=== PATIENT | male | born 1960 | race Caucasian/White ===

== ENCOUNTER 2018-04-27 08:27 | Outpatient (RCR) | payer MEDICARE, SELFPAY ==
[2018-04-27 09:35] VITALS: BP 179/98; PULSE 62; RESP 16; TEMP 36.9; BMI 54.2
--- NOTE | 2018-04-27 11:24 | PCM.WC.PN ---
(1) Lumbar spine tumor Status: Acute Current Visit: Yes Code(s): D49.2 - Neoplasm of unspecified behavior of bone, soft tissue, and skin (2) Neuropathy of right lower extremity Status: Acute Current Visit: Yes Code(s): G57.91 - Unspecified mononeuropathy of right lower limb (3) Nonhealing ulcer of right lower extremity Status: Acute Current Visit: Yes Code(s): L97.919 - Non-pressure chronic ulcer of unspecified part of right lower leg with unspecified severity (4) Obesity (BMI 30-39.9) Status: Acute Current Visit: Yes Code(s): E66.9 - Obesity, unspecified (5) Bilateral lower extremity edema Status: Acute Current Visit: Yes Code(s): R60.0 - Localized edema Type of Wound Date of Service: 04/27/18 Chief Complaint: Right lateral lower leg ulcer and healing History of Wound: 57-year-old white male who walks with a walker and is 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 Came here because he kicked the door with his right leg in January and still not healing. The areas about the size of a quarter. He has been using Silvadene and has been on several antibiotics with his for physician. Patient was referred to us for further care Progress of Wound: Today the ulcer is open debrided. No sign of infection has some redness around the area we did cultures the area he finishes last antibiotic last Monday and we will change his dressing to Aquacel silver moistened with gauze and tape and he needs to have an Sid wrap he has lower extremity edema. - Physical Exam Vital Signs Temp Pulse Resp BP 98.4 F 62 16 179/98 H 04/27/18 09:35 04/27/18 09:35 04/27/18 09:35 04/27/18 09:35 General: Oriented x3, Cooperative, Well developed HEENT: Atraumatic, PERRLA Oral: Moist Mucosa Neck: Supple, No JVD Lungs: Clear to auscultation, Normal air movement Cardiovascular: Regular rate, Regular Rhythm Abdomen: Bowel Sounds Present, Soft, Non Tender, No Hepato-splenomegaly Extremities: No clubbing, No edema Skin: Ulcer/ Wound - Right lateral lower leg Wound Measurements and Assessment WC - Nurse 1 - General Ulcer Measurement Start: 04/27/18 09:35 Freq: Status: Active Protocol: Activity Type Activity Date Activity User E-Sign Co-Sign Detail Recorded Client Recorded Date Recorded By Document 04/27/18 09:35 [facility] [id number] 04/27/18 10:06 [facility] 04/27/18 09:35 Wound Center Nurse 1 [Ulcer Assessment] #1- RT LAT LE -Combined with other wound No -Current Size (cm) - Length 1.1 -Current Size (cm) - Width 1.4 -Current Size (cm) - Depth 0.1 -Total Square Cm 1.54 -Date of Last Picture (Recall this 04/27/18 field) -Photo Taken Yes -Epithelialization None Present -Tunneling No -Undermining/Tunneling No -Circular Undermining No -Exudate Amt None Present (0 %) -Wound Margin Distinct, Outline Attached -Granulation Amt Large (67-100%) -Granulation Quality Red -Slough/Fibrin No -Necrosis Amt None Present (0 %) -Texture (Deisi-wound Skin Appearance) Scarring -Moisture (Deisi-wound Skin Appearance Assessed ) -Color (Deisi-wound Skin Appearance) Assessed -Temperature (Deisi-wound Skin No Abnormality Appearance) (Pt Warm) -Tenderness on Palpation (Deisi-wound No Skin Appearance) -Ulcer Cleansing Rinsed/ Irrigated with Saline -Foul Odor after Cleansing No -Anesthetic Used 5% Lidocaine Gel [Edema Assessment] -Lower Limb Edema Present Yes -Right Calf (cm) 54.4 -Right Ankle (cm) 32.5 -Left Calf (cm) 51.5 -Left Ankle (cm) 31.5 - Nurse 2 - General Ulcer CM Notes Start: 04/27/18 09:35 Freq: Status: Active Protocol: Activity Type Activity Date Activity User E-Sign Co-Sign Detail Recorded Client Recorded Date Recorded By Document 04/27/18 10:34 [id number] 04/27/18 10:35 04/27/18 10:34 Wound Center Nurse 2 [Procedure/Treatment] #1- RT LAT LE -Time 10:34 -Correct Patient Yes -Correct Side, Site, Position Yes -Correct Procedure Yes -Procedure Performed Yes -Type of Procedure Debridement -Clinical Debridement Subcutaneous -Post Debridement Size (cm) - Length 1.4 -Post Debridement Size (cm) - Width 1.5 -Post Debridement Size (cm) - Depth 0.2 -Total Square Cm 2.10 -Wound/Ulcer Outcome Not Healed -Ulcer Cleansing Rinsed/ Irrigated with Saline -Foul Odor after Cleansing No -Bioengineered Tissue No -Bleeding Controlled with Pressure -Treatment Response Procedure Tolerated Well [See Physician Procedure note for Specifics] Pain Scale: 0-10 Numeric [Pain] -Is Patient Pain Free? Yes Musculoskeletal: No Tenderness to Palpation of Joints or Extremities Lymphatic: No Cervical, Supraclavicular, or Inguinal Adenopathy Neurological: Cranial nerves II-XII grossly intact, Neuro grossly intact Psych/Mental Status: Normal Affect, Appropriate Debridement Note Post-Debridement Measurements/Treatment WC - Nurse 2 - General Ulcer CM Notes Start: 04/27/18 09:35 Freq: Status: Active Protocol: Activity Type Activity Date Activity User E-Sign Co-Sign Detail Recorded Client Recorded Date Recorded By Document 04/27/18 10:34 [id number] 04/27/18 10:35 04/27/18 10:34 Wound Center Nurse 2 #1- RT LAT LE -Time 10:34 -Correct Patient Yes -Correct Side, Site, Position Yes -Correct Procedure Yes -Procedure Performed Yes -Type of Procedure Debridement -Clinical Debridement Subcutaneous -Post Debridement Size (cm) - Length 1.4 -Post Debridement Size (cm) - Width 1.5 -Post Debridement Size (cm) - Depth 0.2 -Total Square Cm 2.10 -Wound/Ulcer Outcome Not Healed -Ulcer Cleansing Rinsed/ Irrigated with Saline -Foul Odor after Cleansing No -Bioengineered Tissue No -Bleeding Controlled with Pressure -Treatment Response Procedure Tolerated Well Pain Scale: 0-10 Numeric Is Patient Pain Free? Yes Wound debrided: Lateral lower leg Type of Debridement: Excisional debridement Anesthesia Used: 5% Lidocaine Gel Depth: Down to and including healthy tissue, in the subcutaneous layer Percentage of wound debrided: 100 Instrument Used: 5mm curette Tissue Removed: Fibrin Patient tolerated procedure well Assessment/Plan Pre-albumin and aerobic and anaerobic cultures obtained Active Problems Lumbar spine tumor (Acute) Neuropathy of right lower extremity (Acute) Nonhealing ulcer of right lower extremity (Acute) Obesity (BMI 30-39.9) (Acute) Bilateral lower extremity edema (Acute) Assessment: Right lateral lower leg ulcer nonhealing. Right lower leg edema. Peripheral neuropathy. Tumor on spine Plan: Area with Hibiclens. Apply Aquacel silver to wound base moistened cover with Adaptic gauze tape. Sid wraps to his lower extremity. Follow-up 2 weeks
== END 2018-05-11 23:59 ==
LOC: WC 08:27
PROVIDERS: Family Provider Family Medicine; PCP Family Medicine; Visit Provider Nurse Practitioner
DX: L97.812 Non-pressure chronic ulcer of other part of right lower leg with fat layer exposed (principal); E66.9 Obesity, unspecified; R60.0 Localized edema; G62.9 Polyneuropathy, unspecified
CPT/HCPCS: 11042; 36415; 84134; 87070; 87075; 87186; 87205; 99203; G0463

== ENCOUNTER 2018-06-08 09:00 | Outpatient (RCR) | payer MEDICARE, SELFPAY ==
[2018-05-12 01:47] VITALS: BP 179/98; PULSE 62; RESP 16; TEMP 36.9
[2018-05-18 10:23] VITALS: BP 169/96; PULSE 64; RESP 18; TEMP 36.3
--- NOTE | 2018-05-18 11:55 | PCM.WC.PN ---
(1) Bilateral lower extremity edema Status: Acute Current Visit: No Code(s): R60.0 - Localized edema (2) Obesity (BMI 30-39.9) Status: Acute Current Visit: No Code(s): E66.9 - Obesity, unspecified (3) Nonhealing ulcer of right lower extremity Status: Acute Current Visit: No Code(s): L97.919 - Non-pressure chronic ulcer of unspecified part of right lower leg with unspecified severity Type of Wound Date of Service: 05/18/18 Chief Complaint: Right lateral lower leg ulcer and healing History of Wound: 57-year-old white male who walks with a walker and is 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 Came here because he kicked the door with his right leg in January and still not healing. The areas about the size of a quarter. He has been using Silvadene and has been on several antibiotics with his for physician. Patient was referred to us for further care Progress of Wound: Today the ulcer is open debrided. No sign of infection has some redness around the area we did cultures the area he has finished last antibiotic . He is doing well using the Aquacel silver moistened with gauze and tape and he needs to have an Sid wrap he has lower extremity edema. - Physical Exam Vital Signs Temp Pulse Resp BP 97.3 F L 64 18 169/96 H 05/18/18 10:23 05/18/18 10:23 05/18/18 10:23 05/18/18 10:23 General: Oriented x3, Cooperative, Well developed HEENT: Atraumatic, PERRLA Oral: Moist Mucosa Neck: Supple, No JVD Lungs: Clear to auscultation, Normal air movement Cardiovascular: Regular rate, Regular Rhythm Abdomen: Bowel Sounds Present, Soft, Non Tender, No Hepato-splenomegaly Extremities: No clubbing, No edema Skin: Ulcer/ Wound - Lateral lower leg ulcer traumatic Wound Measurements and Assessment WC - Nurse 1 - General Ulcer Measurement Start: 05/18/18 10:23 Freq: Status: Active Protocol: Activity Type Activity Date Activity User E-Sign Co-Sign Detail Recorded Client Recorded Date Recorded By Document 05/18/18 10:23 [facility] [id number] 05/18/18 10:24 [facility] 05/18/18 10:23 Wound Center Nurse 1 [Ulcer Assessment] #1- RT LAT LE -Combined with other wound No -Current Size (cm) - Length 1.3 -Current Size (cm) - Width 1.4 -Current Size (cm) - Depth 0.1 -Total Square Cm 1.82 -Photo Taken No -Epithelialization None Present -Tunneling No -Undermining/Tunneling No -Circular Undermining No -Exudate Amt Small (1-33%) -Exudate Type Serosanguineous -Wound Margin Distinct, Outline Attached -Granulation Amt Medium (34-66%) -Granulation Quality Red -Slough/Fibrin Yes -Necrosis Amt Medium (34-66%) -Necrotic Tissue Type Adherent Slough -Texture (Deisi-wound Skin Appearance) Scarring -Moisture (Deisi-wound Skin Appearance Assessed ) -Color (Deisi-wound Skin Appearance) Hemosiderin Staining -Temperature (Deisi-wound Skin No Abnormality Appearance) (Pt Warm) -Tenderness on Palpation (Deisi-wound No Skin Appearance) -Ulcer Cleansing Rinsed/ Irrigated with Saline -Foul Odor after Cleansing No -Anesthetic Used 4% Lidocaine Solution [Edema Assessment] -Lower Limb Edema Present Yes -Right Calf (cm) 55 -Right Ankle (cm) 33.3 WC - Nurse 2 - General Ulcer CM Notes Start: 05/18/18 10:23 Freq: Status: Active Protocol: Activity Type Activity Date Activity User E-Sign Co-Sign Detail Recorded Client Recorded Date Recorded By Document 05/18/18 10:31 MW [id number] 05/18/18 10:36 MW 05/18/18 10:31 Wound Center Nurse 2 [Procedure/Treatment] #1- RT LAT LE -Time 10:32 -Correct Patient Yes -Correct Side, Site, Position Yes -Correct Procedure Yes -Procedure Performed Yes -Type of Procedure Debridement -Clinical Debridement Subcutaneous -Post Debridement Size (cm) - Length 1.5 -Post Debridement Size (cm) - Width 1.5 -Post Debridement Size (cm) - Depth 0.2 -Total Square Cm 2.25 -Wound/Ulcer Outcome Not Healed -Ulcer Cleansing Rinsed/ Irrigated with Saline -Foul Odor after Cleansing No -Bioengineered Tissue No -Bleeding Controlled with Pressure -Treatment Response Procedure Tolerated Well [See Physician Procedure note for Specifics] Pain Scale: 0-10 Numeric [Pain] -Is Patient Pain Free? Yes Musculoskeletal: No Tenderness to Palpation of Joints or Extremities Lymphatic: No Cervical, Supraclavicular, or Inguinal Adenopathy Neurological: Cranial nerves II-XII grossly intact, Neuro grossly intact Psych/Mental Status: Normal Affect, Appropriate Debridement Note Post-Debridement Measurements/Treatment WC - Nurse 2 - General Ulcer CM Notes Start: 05/18/18 10:23 Freq: Status: Active Protocol: Activity Type Activity Date Activity User E-Sign Co-Sign Detail Recorded Client Recorded Date Recorded By Document 05/18/18 10:31 MW [id number] 05/18/18 10:36 MW 05/18/18 10:31 Wound Center Nurse 2 #1- RT LAT LE -Time 10:32 -Correct Patient Yes -Correct Side, Site, Position Yes -Correct Procedure Yes -Procedure Performed Yes -Type of Procedure Debridement -Clinical Debridement Subcutaneous -Post Debridement Size (cm) - Length 1.5 -Post Debridement Size (cm) - Width 1.5 -Post Debridement Size (cm) - Depth 0.2 -Total Square Cm 2.25 -Wound/Ulcer Outcome Not Healed -Ulcer Cleansing Rinsed/ Irrigated with Saline -Foul Odor after Cleansing No -Bioengineered Tissue No -Bleeding Controlled with Pressure -Treatment Response Procedure Tolerated Well Pain Scale: 0-10 Numeric Is Patient Pain Free? Yes Wound debrided: Lateral lower leg ulcer Type of Debridement: Excisional debridement Anesthesia Used: 5% Lidocaine Gel Depth: Down to and including healthy tissue, in the subcutaneous layer Percentage of wound debrided: 100 Instrument Used: 5mm curette Tissue Removed: Fibrin Severity: Limited To Skin Breakdown Amount of bleeding with debridement: Mild Bleeding Controlled with: Compression and gauze Assessment/Plan Assessment: Right lateral lower leg ulcer nonhealing. Right lower leg edema. Peripheral neuropathy. Tumor on spine Plan: Area with Hibiclens. Apply Aquacel silver to wound base moistened cover with Adaptic gauze tape. Sid wraps to his lower extremity. Follow-up 1 weeks
[2018-05-25 09:33] VITALS: BP 166/91; PULSE 61; RESP 18; TEMP 36.4
--- NOTE | 2018-05-25 11:03 | PCM.WC.PN ---
(1) Bilateral lower extremity edema Status: Acute Current Visit: No Code(s): R60.0 - Localized edema (2) Obesity (BMI 30-39.9) Status: Acute Current Visit: Yes Code(s): E66.9 - Obesity, unspecified (3) Nonhealing ulcer of right lower extremity Status: Acute Current Visit: Yes Code(s): L97.919 - Non-pressure chronic ulcer of unspecified part of right lower leg with unspecified severity Type of Wound Date of Service: 05/25/18 Chief Complaint: Right lateral lower leg ulcer and healing History of Wound: 57-year-old white male who walks with a walker and is 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 Came here because he kicked the door with his right leg in January and still not healing. The areas about the size of a quarter. He has been using Silvadene and has been on several antibiotics with his for physician. Patient was referred to us for further care Progress of Wound: Today the ulcer is open debrided. No sign of infection has some redness around the area we did cultures the area he has finished last antibiotic . He is doing well using the Aquacel silver moistened with gauze and tape and he needs to have an Sid wrap he has lower extremity edema. - Physical Exam Vital Signs Temp Pulse Resp BP 97.5 F L 61 18 166/91 H 05/25/18 09:33 05/25/18 09:33 05/25/18 09:33 05/25/18 09:33 General: Oriented x3, Cooperative, Well developed HEENT: Atraumatic, PERRLA Oral: Moist Mucosa Neck: Supple, No JVD Lungs: Clear to auscultation, Normal air movement Cardiovascular: Regular rate, Regular Rhythm Abdomen: Bowel Sounds Present, Soft, Non Tender, No Hepato-splenomegaly Extremities: No clubbing, No edema Skin: Ulcer/ Wound - Right lateral lower leg ulcer Wound Measurements and Assessment WC - Nurse 1 - General Ulcer Measurement Start: 05/18/18 10:23 Freq: Status: Active Protocol: Activity Type Activity Date Activity User E-Sign Co-Sign Detail Recorded Client Recorded Date Recorded By Document 05/25/18 09:33 [id number] 05/25/18 09:42 05/25/18 09:33 Wound Center Nurse 1 [Ulcer Assessment] #1- RT LAT LE -Combined with other wound No -Current Size (cm) - Length 1.6 -Current Size (cm) - Width 1.4 -Current Size (cm) - Depth 0.1 -Total Square Cm 2.24 -Date of Last Picture (Recall this 05/25/18 field) -Photo Taken Yes -Epithelialization None Present -Tunneling No -Undermining/Tunneling No -Circular Undermining No -Temperature (Deisi-wound Skin No Abnormality Appearance) (Pt Warm) -Tenderness on Palpation (Deisi-wound No Skin Appearance) -Ulcer Cleansing Rinsed/ Irrigated with Saline -Foul Odor after Cleansing No -Anesthetic Used 4% Lidocaine Solution [Edema Assessment] -Lower Limb Edema Present Yes -Right Calf (cm) 52.5 -Right Ankle (cm) 32 WC - Nurse 2 - General Ulcer CM Notes Start: 05/18/18 10:23 Freq: Status: Active Protocol: Activity Type Activity Date Activity User E-Sign Co-Sign Detail Recorded Client Recorded Date Recorded By Document 05/25/18 09:59 MW [id number] 05/25/18 10:00 MW 05/25/18 09:59 Wound Center Nurse 2 [Procedure/Treatment] #1- RT LAT LE -Time 09:59 -Correct Patient Yes -Correct Side, Site, Position Yes -Correct Procedure Yes -Procedure Performed Yes -Type of Procedure Debridement -Clinical Debridement Subcutaneous -Post Debridement Size (cm) - Length 1.7 -Post Debridement Size (cm) - Width 1.6 -Post Debridement Size (cm) - Depth 0.2 -Total Square Cm 2.72 -Wound/Ulcer Outcome Not Healed -Ulcer Cleansing Rinsed/ Irrigated with Saline -Foul Odor after Cleansing No -Bioengineered Tissue No -Bleeding Controlled with Pressure -Treatment Response Procedure Tolerated Well [See Physician Procedure note for Specifics] Pain Scale: 0-10 Numeric [Pain] -Is Patient Pain Free? Yes Musculoskeletal: No Tenderness to Palpation of Joints or Extremities Lymphatic: No Cervical, Supraclavicular, or Inguinal Adenopathy Neurological: Cranial nerves II-XII grossly intact, Neuro grossly intact Psych/Mental Status: Normal Affect, Appropriate Debridement Note Post-Debridement Measurements/Treatment WC - Nurse 2 - General Ulcer CM Notes Start: 05/18/18 10:23 Freq: Status: Active Protocol: Activity Type Activity Date Activity User E-Sign Co-Sign Detail Recorded Client Recorded Date Recorded By Document 05/18/18 10:31 MW [id number] 05/18/18 10:36 MW Document 05/25/18 09:59 MW [id number] 05/25/18 10:00 MW 05/18/18 05/25/18 10:31 09:59 Wound Center Nurse 2 #1- RT LAT LE -Time 10:32 09:59 -Correct Patient Yes Yes -Correct Side, Site, Position Yes Yes -Correct Procedure Yes Yes -Procedure Performed Yes Yes -Type of Procedure Debridement Debridement -Clinical Debridement Subcutaneous Subcutaneous -Post Debridement Size (cm) - Length 1.5 1.7 -Post Debridement Size (cm) - Width 1.5 1.6 -Post Debridement Size (cm) - Depth 0.2 0.2 -Total Square Cm 2.25 2.72 -Wound/Ulcer Outcome Not Healed Not Healed -Ulcer Cleansing Rinsed/ Rinsed/ Irrigated with Irrigated with Saline Saline -Foul Odor after Cleansing No No -Bioengineered Tissue No No -Bleeding Controlled with Pressure Pressure -Treatment Response Procedure Procedure Tolerated Well Tolerated Well Pain Scale: 0-10 Numeric Is Patient Pain Free? Yes Yes Wound debrided: Right lateral lower leg ulcer Type of Debridement: Excisional debridement Anesthesia Used: 5% Lidocaine Gel Depth: Down to and including healthy tissue, in the subcutaneous layer Percentage of wound debrided: 100 Instrument Used: 5mm curette Tissue Removed: Slough and fibrin and devitalized tissue Severity: Limited To Skin Breakdown Amount of bleeding with debridement: Mild Bleeding Controlled with: Compression and gauze Patient tolerated procedure well Assessment/Plan Active Problems Nonhealing ulcer of right lower extremity (Acute) Obesity (BMI 30-39.9) (Acute) Assessment: Right lateral lower leg ulcer nonhealing. Right lower leg edema. Peripheral neuropathy. Tumor on spine Plan: Area with Hibiclens. Apply Aquacel silver to wound base moistened cover with Adaptic gauze tape. Sid wraps to his lower extremity. Follow-up 1 weeks
[2018-06-01 08:49] VITALS: BP 158/76; PULSE 67; RESP 18; TEMP 35.9
--- NOTE | 2018-06-01 09:58 | PCM.WC.PN ---
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 Came here because he kicked the door with his right leg in January and still not healing. The areas about the size of a quarter. He has been using Silvadene and has been on several antibiotics with his for physician. Patient was referred to us for further care Progress of Wound: Today the wound is open debrided. Showing signs of more redness around the wound we will culture it again today last culture did not grow anything. The wound is not moving and therefore we are going to try him on Promogran once a day dressing changes to that right lower leg. Issue with him is his insurance he only has Medicare with no secondary which makes it very expensive for him. - Physical Exam Vital Signs Temp Pulse Resp BP 96.6 F L 67 18 158/76 H 06/01/18 08:49 06/01/18 08:49 06/01/18 08:49 06/01/18 08:49 General: Oriented x3, Cooperative, Well developed HEENT: Atraumatic, PERRLA Oral: Moist Mucosa Neck: Supple, No JVD Lungs: Clear to auscultation, Normal air movement Cardiovascular: Regular rate, Regular Rhythm Abdomen: Bowel Sounds Present, Soft, Non Tender, No Hepato-splenomegaly Extremities: No clubbing, Cool, Edema Skin: Ulcer/ Wound - Right lateral lower leg wound Wound Measurements and Assessment WC - Nurse 1 - General Ulcer Measurement Start: 05/18/18 10:23 Freq: Status: Active Protocol: Activity Type Activity Date Activity User E-Sign Co-Sign Detail Recorded Client Recorded Date Recorded By Document 06/01/18 08:49 [id number] 06/01/18 08:51 06/01/18 08:49 Wound Center Nurse 1 [Ulcer Assessment] #1- RT LAT LE -Combined with other wound No -Current Size (cm) - Length 1.8 -Current Size (cm) - Width 1.8 -Current Size (cm) - Depth 0.1 -Total Square Cm 3.24 -Photo Taken No -Epithelialization Small 1-33% -Tunneling No -Undermining/Tunneling No -Circular Undermining No -Classification - Thickness Full Thickness without Exposed Support Structure -Exudate Amt Small (1-33%) -Exudate Type Serosanguineous -Wound Margin Distinct, Outline Attached -Granulation Amt Medium (34-66%) -Granulation Quality Red -Slough/Fibrin Yes -Necrosis Amt Medium (34-66%) -Necrotic Tissue Type Adherent Slough -Structure Exposed Fascia Fat Layer Exposed -Texture (Deisi-wound Skin Appearance) Assessed Localized Edema -Moisture (Deisi-wound Skin Appearance No Abnormality ) Assessed -Color (Deisi-wound Skin Appearance) No Abnormality Assessed -Temperature (Deisi-wound Skin No Abnormality Appearance) (Pt Warm) -Tenderness on Palpation (Deisi-wound No Skin Appearance) -Ulcer Cleansing Rinsed/ Irrigated with Saline -Foul Odor after Cleansing No -Anesthetic Used 5% Lidocaine Gel [Edema Assessment] -Lower Limb Edema Present Yes -Right Calf (cm) 50.0 -Right Ankle (cm) 31.0 WC - Nurse 2 - General Ulcer CM Notes Start: 05/18/18 10:23 Freq: Status: Active Protocol: Activity Type Activity Date Activity User E-Sign Co-Sign Detail Recorded Client Recorded Date Recorded By Document 06/01/18 09:00 [id number] 06/01/18 09:02 06/01/18 09:00 Wound Center Nurse 2 [Procedure/Treatment] #1- RT LAT LE -Time 09:00 -Correct Patient Yes -Correct Side, Site, Position Yes -Correct Procedure Yes -Procedure Performed Yes -Type of Procedure Debridement -Clinical Debridement Subcutaneous -Post Debridement Size (cm) - Length 1.8 -Post Debridement Size (cm) - Width 1.6 -Post Debridement Size (cm) - Depth 0.2 -Total Square Cm 2.88 -Wound/Ulcer Outcome Not Healed -Ulcer Cleansing Rinsed/ Irrigated with Saline -Foul Odor after Cleansing No -Bioengineered Tissue No -Bleeding Controlled with Pressure -Treatment Response Procedure Tolerated Well [See Physician Procedure note for Specifics] Pain Scale: 0-10 Numeric [Pain] -Is Patient Pain Free? Yes Musculoskeletal: No Tenderness to Palpation of Joints or Extremities Lymphatic: No Cervical, Supraclavicular, or Inguinal Adenopathy Neurological: Cranial nerves II-XII grossly intact, Neuro grossly intact Psych/Mental Status: Normal Affect, Appropriate Debridement Note Post-Debridement Measurements/Treatment WC - Nurse 2 - General Ulcer CM Notes Start: 05/18/18 10:23 Freq: Status: Active Protocol: Activity Type Activity Date Activity User E-Sign Co-Sign Detail Recorded Client Recorded Date Recorded By Document 05/18/18 10:31 MW [id number] 05/18/18 10:36 MW Document 05/25/18 09:59 MW [id number] 05/25/18 10:00 MW Document 06/01/18 09:00 MW [id number] 06/01/18 09:02 MW 05/18/18 05/25/18 06/01/18 10:31 09:59 09:00 Wound Center Nurse 2 #1- RT LAT LE -Time 10:32 09:59 09:00 -Correct Patient Yes Yes Yes -Correct Side, Site, Position Yes Yes Yes -Correct Procedure Yes Yes Yes -Procedure Performed Yes Yes Yes -Type of Procedure Debridement Debridement Debridement -Clinical Debridement Subcutaneous Subcutaneous Subcutaneous -Post Debridement Size (cm) - Length 1.5 1.7 1.8 -Post Debridement Size (cm) - Width 1.5 1.6 1.6 -Post Debridement Size (cm) - Depth 0.2 0.2 0.2 -Total Square Cm 2.25 2.72 2.88 -Wound/Ulcer Outcome Not Healed Not Healed Not Healed -Ulcer Cleansing Rinsed/ Rinsed/ Rinsed/ Irrigated with Irrigated with Irrigated with Saline Saline Saline -Foul Odor after Cleansing No No No -Bioengineered Tissue No No No -Bleeding Controlled with Pressure Pressure Pressure -Treatment Response Procedure Procedure Procedure Tolerated Well Tolerated Well Tolerated Well Pain Scale: 0-10 Numeric Is Patient Pain Free? Yes Yes Yes Wound debrided: Right lateral lower leg wound Type of Debridement: Excisional debridement Anesthesia Used: 5% Lidocaine Gel Depth: Down to and including healthy tissue, in the subcutaneous layer Percentage of wound debrided: 100 Instrument Used: 5mm curette Tissue Removed: Slough and fibrin Severity: Limited To Skin Breakdown Amount of bleeding with debridement: Mild Bleeding Controlled with: Compression and gauze Assessment/Plan Ulcers obtained on right lateral lower wound and anaerobic Active Problems Obesity (BMI 30-39.9) (Acute) Nonhealing nonsurgical wound limited to breakdown of skin (Acute) Assessment: Right lateral lower leg wound nonhealing. Right lower leg edema. Peripheral neuropathy. Tumor on spine Plan: Wash area with Hibiclens. Apply Jennifer to wound base moistened cover with Adaptic gauze tape. Sid wraps to his lower extremity. Follow-up 1 weeks
--- NOTE | 2018-06-01 10:03 | PN.PCM_ITS ---
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 Came here because he kicked the door with his right leg in January and still not healing. The areas about the size of a quarter. He has been using Silvadene and has been on several antibiotics with his for physician. Patient was referred to us for further care Progress of Wound: Today the wound is open debrided. Showing signs of more redness around the wound we will culture it again today last culture did not grow anything. The wound is not moving and therefore we are going to try him on Promogran once a day dressing changes to that right lower leg. Issue with him is his insurance he only has Medicare with no secondary which makes it very expensive for him. - Physical Exam Vital Signs Temp Pulse Resp BP 96.6 F L 67 18 158/76 H 06/01/18 08:49 06/01/18 08:49 06/01/18 08:49 06/01/18 08:49 General: Oriented x3, Cooperative, Well developed HEENT: Atraumatic, PERRLA Oral: Moist Mucosa Neck: Supple, No JVD Lungs: Clear to auscultation, Normal air movement Cardiovascular: Regular rate, Regular Rhythm Abdomen: Bowel Sounds Present, Soft, Non Tender, No Hepato-splenomegaly Extremities: No clubbing, Cool, Edema Skin: Ulcer/ Wound - Right lateral lower leg wound Wound Measurements and Assessment WC - Nurse 1 - General Ulcer Measurement Start: 05/18/18 10:23 Freq: Status: Active Protocol: Activity Type Activity Date Activity User E-Sign Co-Sign Detail Recorded Client Recorded Date Recorded By Document 06/01/18 08:49 [id number] 06/01/18 08:51 06/01/18 08:49 Wound Center Nurse 1 [Ulcer Assessment] #1- RT LAT LE -Combined with other wound No -Current Size (cm) - Length 1.8 -Current Size (cm) - Width 1.8 -Current Size (cm) - Depth 0.1 -Total Square Cm 3.24 -Photo Taken No -Epithelialization Small 1-33% -Tunneling No -Undermining/Tunneling No -Circular Undermining No -Classification - Thickness Full Thickness without Exposed Support Structure -Exudate Amt Small (1-33%) -Exudate Type Serosanguineous -Wound Margin Distinct, Outline Attached -Granulation Amt Medium (34-66%) -Granulation Quality Red -Slough/Fibrin Yes -Necrosis Amt Medium (34-66%) -Necrotic Tissue Type Adherent Slough -Structure Exposed Fascia Fat Layer Exposed -Texture (Deisi-wound Skin Appearance) Assessed Localized Edema -Moisture (Deisi-wound Skin Appearance No Abnormality ) Assessed -Color (Deisi-wound Skin Appearance) No Abnormality Assessed -Temperature (Deisi-wound Skin No Abnormality Appearance) (Pt Warm) -Tenderness on Palpation (Deisi-wound No Skin Appearance) -Ulcer Cleansing Rinsed/ Irrigated with Saline -Foul Odor after Cleansing No -Anesthetic Used 5% Lidocaine Gel [Edema Assessment] -Lower Limb Edema Present Yes -Right Calf (cm) 50.0 -Right Ankle (cm) 31.0 WC - Nurse 2 - General Ulcer CM Notes Start: 05/18/18 10:23 Freq: Status: Active Protocol: Activity Type Activity Date Activity User E-Sign Co-Sign Detail Recorded Client Recorded Date Recorded By Document 06/01/18 09:00 [id number] 06/01/18 09:02 06/01/18 09:00 Wound Center Nurse 2 [Procedure/Treatment] #1- RT LAT LE -Time 09:00 -Correct Patient Yes -Correct Side, Site, Position Yes -Correct Procedure Yes -Procedure Performed Yes -Type of Procedure Debridement -Clinical Debridement Subcutaneous -Post Debridement Size (cm) - Length 1.8 -Post Debridement Size (cm) - Width 1.6 -Post Debridement Size (cm) - Depth 0.2 -Total Square Cm 2.88 -Wound/Ulcer Outcome Not Healed -Ulcer Cleansing Rinsed/ Irrigated with Saline -Foul Odor after Cleansing No -Bioengineered Tissue No -Bleeding Controlled with Pressure -Treatment Response Procedure Tolerated Well [See Physician Procedure note for Specifics] Pain Scale: 0-10 Numeric [Pain] -Is Patient Pain Free? Yes Musculoskeletal: No Tenderness to Palpation of Joints or Extremities Lymphatic: No Cervical, Supraclavicular, or Inguinal Adenopathy Neurological: Cranial nerves II-XII grossly intact, Neuro grossly intact Psych/Mental Status: Normal Affect, Appropriate Debridement Note Post-Debridement Measurements/Treatment WC - Nurse 2 - General Ulcer CM Notes Start: 05/18/18 10:23 Freq: Status: Active Protocol: Activity Type Activity Date Activity User E-Sign Co-Sign Detail Recorded Client Recorded Date Recorded By Document 05/18/18 10:31 MW [id number] 05/18/18 10:36 MW Document 05/25/18 09:59 MW [id number] 05/25/18 10:00 MW Document 06/01/18 09:00 MW [id number] 06/01/18 09:02 MW 05/18/18 05/25/18 06/01/18 10:31 09:59 09:00 Wound Center Nurse 2 #1- RT LAT LE -Time 10:32 09:59 09:00 -Correct Patient Yes Yes Yes -Correct Side, Site, Position Yes Yes Yes -Correct Procedure Yes Yes Yes -Procedure Performed Yes Yes Yes -Type of Procedure Debridement Debridement Debridement -Clinical Debridement Subcutaneous Subcutaneous Subcutaneous -Post Debridement Size (cm) - Length 1.5 1.7 1.8 -Post Debridement Size (cm) - Width 1.5 1.6 1.6 -Post Debridement Size (cm) - Depth 0.2 0.2 0.2 -Total Square Cm 2.25 2.72 2.88 -Wound/Ulcer Outcome Not Healed Not Healed Not Healed -Ulcer Cleansing Rinsed/ Rinsed/ Rinsed/ Irrigated with Irrigated with Irrigated with Saline Saline Saline -Foul Odor after Cleansing No No No -Bioengineered Tissue No No No -Bleeding Controlled with Pressure Pressure Pressure -Treatment Response Procedure Procedure Procedure Tolerated Well Tolerated Well Tolerated Well Pain Scale: 0-10 Numeric Is Patient Pain Free? Yes Yes Yes Wound debrided: Right lateral lower leg wound Type of Debridement: Excisional debridement Anesthesia Used: 5% Lidocaine Gel Depth: Down to and including healthy tissue, in the subcutaneous layer Percentage of wound debrided: 100 Instrument Used: 5mm curette Tissue Removed: Slough and fibrin Severity: Limited To Skin Breakdown Amount of bleeding with debridement: Mild Bleeding Controlled with: Compression and gauze Assessment/Plan Ulcers obtained on right lateral lower wound and anaerobic Active Problems Obesity (BMI 30-39.9) (Acute) Nonhealing nonsurgical wound limited to breakdown of skin (Acute) Assessment: Right lateral lower leg wound nonhealing. Right lower leg edema. Peripheral neuropathy. Tumor on spine Plan: Wash area with Hibiclens. Apply Jennifer to wound base moistened cover with Adaptic gauze tape. Sid wraps to his lower extremity. Follow-up 1 weeks
[2018-06-08 08:46] VITALS: BP 140/71; PULSE 63; RESP 20; TEMP 35.6
--- NOTE | 2018-06-08 09:13 | PCM.WC.PN ---
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 Came here because he kicked the door with his right leg in January and still not healing. The areas about the size of a quarter. He has been using Silvadene and has been on several antibiotics with his for physician. Patient was referred to us for further care Progress of Wound: Today the wound is open debrided. Culture did not grow anything. We have used Jennifer for the last week every day dressing changes and it seems to be finally moving his wound to healing. Issue with him is his insurance he only has Medicare with no secondary which makes it very expensive for him. - Physical Exam Vital Signs Temp Pulse Resp BP 96.0 F L 63 20 H 140/71 H 06/08/18 08:46 06/08/18 08:46 06/08/18 08:46 06/08/18 08:46 General: Oriented x3, Cooperative, Well developed HEENT: Atraumatic, PERRLA Oral: Moist Mucosa Neck: Supple, No JVD Lungs: Clear to auscultation, Normal air movement Cardiovascular: Regular rate, Regular Rhythm Abdomen: Bowel Sounds Present, Soft, Non Tender, No Hepato-splenomegaly Extremities: No clubbing, No edema Skin: Ulcer/ Wound - Right lower leg wound Wound Measurements and Assessment WC - Nurse 1 - General Ulcer Measurement Start: 05/18/18 10:23 Freq: Status: Active Protocol: Activity Type Activity Date Activity User E-Sign Co-Sign Detail Recorded Client Recorded Date Recorded By Document 06/08/18 08:46 [id number] 06/08/18 08:50 CS 06/08/18 08:46 Wound Center Nurse 1 [Ulcer Assessment] #1- RT LAT LE -Combined with other wound No -Current Size (cm) - Length 2 -Current Size (cm) - Width 1.8 -Current Size (cm) - Depth 0.1 -Total Square Cm 3.6 -Photo Taken No -Epithelialization None Present -Tunneling No -Undermining/Tunneling No -Exudate Amt Medium (34-66%) -Exudate Type Serosanguineous -Wound Margin Distinct, Outline Attached -Granulation Amt None Present (0 %) -Granulation Quality N/A Red -Slough/Fibrin Yes -Necrotic Tissue Type Adherent Slough -Structure Exposed None/Limited to Skin Breakdown -Texture (Deisi-wound Skin Appearance) No Abnormality Assessed -Moisture (Deisi-wound Skin Appearance No Abnormality ) Assessed -Color (Deisi-wound Skin Appearance) No Abnormality Assessed -Temperature (Deisi-wound Skin No Abnormality Appearance) (Pt Warm) -Tenderness on Palpation (Deisi-wound No Skin Appearance) -Ulcer Cleansing Rinsed/ Irrigated with Saline -Foul Odor after Cleansing No -Anesthetic Used 4% Lidocaine Solution [Edema Assessment] -Lower Limb Edema Present Yes -Right Calf (cm) 49 -Right Ankle (cm) 31 WC - Nurse 2 - General Ulcer CM Notes Start: 05/18/18 10:23 Freq: Status: Active Protocol: Activity Type Activity Date Activity User E-Sign Co-Sign Detail Recorded Client Recorded Date Recorded By Document 06/08/18 08:54 MW [id number] 06/08/18 08:55 MW 06/08/18 08:54 Wound Center Nurse 2 [Procedure/Treatment] #1- RT LAT LE -Time 08:54 -Correct Patient Yes -Correct Side, Site, Position Yes -Correct Procedure Yes -Procedure Performed Yes -Type of Procedure Debridement -Clinical Debridement Subcutaneous -Post Debridement Size (cm) - Length 2.0 -Post Debridement Size (cm) - Width 1.6 -Post Debridement Size (cm) - Depth 0.2 -Total Square Cm 3.20 -Wound/Ulcer Outcome Not Healed -Ulcer Cleansing Rinsed/ Irrigated with Saline -Foul Odor after Cleansing No -Bioengineered Tissue No -Bleeding Controlled with Pressure -Treatment Response Procedure Tolerated Well [See Physician Procedure note for Specifics] Pain Scale: 0-10 Numeric [Pain] -Is Patient Pain Free? Yes Musculoskeletal: No Tenderness to Palpation of Joints or Extremities Lymphatic: No Cervical, Supraclavicular, or Inguinal Adenopathy Neurological: Cranial nerves II-XII grossly intact, Neuro grossly intact Psych/Mental Status: Normal Affect, Appropriate Debridement Note Post-Debridement Measurements/Treatment WC - Nurse 2 - General Ulcer CM Notes Start: 05/18/18 10:23 Freq: Status: Active Protocol: Activity Type Activity Date Activity User E-Sign Co-Sign Detail Recorded Client Recorded Date Recorded By Document 05/18/18 10:31 MW [id number] 05/18/18 10:36 MW Document 05/25/18 09:59 MW [id number] 05/25/18 10:00 MW Document 06/01/18 09:00 MW [id number] 06/01/18 09:02 MW Document 06/08/18 08:54 MW [id number] 06/08/18 08:55 MW 05/18/18 05/25/18 06/01/18 10:31 09:59 09:00 Wound Center Nurse 2 #1- RT LAT LE -Time 10:32 09:59 09:00 -Correct Patient Yes Yes Yes -Correct Side, Site, Position Yes Yes Yes -Correct Procedure Yes Yes Yes -Procedure Performed Yes Yes Yes -Type of Procedure Debridement Debridement Debridement -Clinical Debridement Subcutaneous Subcutaneous Subcutaneous -Post Debridement Size (cm) - Length 1.5 1.7 1.8 -Post Debridement Size (cm) - Width 1.5 1.6 1.6 -Post Debridement Size (cm) - Depth 0.2 0.2 0.2 -Total Square Cm 2.25 2.72 2.88 -Wound/Ulcer Outcome Not Healed Not Healed Not Healed -Ulcer Cleansing Rinsed/ Rinsed/ Rinsed/ Irrigated with Irrigated with Irrigated with Saline Saline Saline -Foul Odor after Cleansing No No No -Bioengineered Tissue No No No -Bleeding Controlled with Pressure Pressure Pressure -Treatment Response Procedure Procedure Procedure Tolerated Well Tolerated Well Tolerated Well Pain Scale: 0-10 Numeric Is Patient Pain Free? Yes Yes Yes 06/08/18 08:54 Wound Center Nurse 2 #1- RT LAT LE -Time 08:54 -Correct Patient Yes -Correct Side, Site, Position Yes -Correct Procedure Yes -Procedure Performed Yes -Type of Procedure Debridement -Clinical Debridement Subcutaneous -Post Debridement Size (cm) - Length 2.0 -Post Debridement Size (cm) - Width 1.6 -Post Debridement Size (cm) - Depth 0.2 -Total Square Cm 3.20 -Wound/Ulcer Outcome Not Healed -Ulcer Cleansing Rinsed/ Irrigated with Saline -Foul Odor after Cleansing No -Bioengineered Tissue No -Bleeding Controlled with Pressure -Treatment Response Procedure Tolerated Well Pain Scale: 0-10 Numeric Is Patient Pain Free? Yes Wound debrided: Right lower leg wound Type of Debridement: Excisional debridement Anesthesia Used: 5% Lidocaine Gel Depth: Down to and including healthy tissue, in the subcutaneous layer Percentage of wound debrided: 100 Instrument Used: 7mm curette Tissue Removed: Slough and devitalized tissue Severity: Limited To Skin Breakdown Amount of bleeding with debridement: Mild Bleeding Controlled with: Compression and gauze Patient tolerated procedure well Assessment/Plan Active Problems Obesity (BMI 30-39.9) (Acute) Bilateral lower extremity edema (Acute) Nonhealing nonsurgical wound limited to breakdown of skin (Acute) Assessment: Right lateral lower leg wound nonhealing. Right lower leg edema. Peripheral neuropathy. Tumor on spine Plan: Wash area with Hibiclens. Apply Jennifer to wound base moistened cover with Adaptic gauze tape. Sid wraps to his lower extremity. Follow-up 1 weeks
--- NOTE | 2018-06-08 09:17 | PN.PCM_ITS ---
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 Came here because he kicked the door with his right leg in January and still not healing. The areas about the size of a quarter. He has been using Silvadene and has been on several antibiotics with his for physician. Patient was referred to us for further care Progress of Wound: Today the wound is open debrided. Culture did not grow anything. We have used Jennifer for the last week every day dressing changes and it seems to be finally moving his wound to healing. Issue with him is his insurance he only has Medicare with no secondary which makes it very expensive for him. - Physical Exam Vital Signs Temp Pulse Resp BP 96.0 F L 63 20 H 140/71 H 06/08/18 08:46 06/08/18 08:46 06/08/18 08:46 06/08/18 08:46 General: Oriented x3, Cooperative, Well developed HEENT: Atraumatic, PERRLA Oral: Moist Mucosa Neck: Supple, No JVD Lungs: Clear to auscultation, Normal air movement Cardiovascular: Regular rate, Regular Rhythm Abdomen: Bowel Sounds Present, Soft, Non Tender, No Hepato-splenomegaly Extremities: No clubbing, No edema Skin: Ulcer/ Wound - Right lower leg wound Wound Measurements and Assessment WC - Nurse 1 - General Ulcer Measurement Start: 05/18/18 10:23 Freq: Status: Active Protocol: Activity Type Activity Date Activity User E-Sign Co-Sign Detail Recorded Client Recorded Date Recorded By Document 06/08/18 08:46 [id number] 06/08/18 08:50 CS 06/08/18 08:46 Wound Center Nurse 1 [Ulcer Assessment] #1- RT LAT LE -Combined with other wound No -Current Size (cm) - Length 2 -Current Size (cm) - Width 1.8 -Current Size (cm) - Depth 0.1 -Total Square Cm 3.6 -Photo Taken No -Epithelialization None Present -Tunneling No -Undermining/Tunneling No -Exudate Amt Medium (34-66%) -Exudate Type Serosanguineous -Wound Margin Distinct, Outline Attached -Granulation Amt None Present (0 %) -Granulation Quality N/A Red -Slough/Fibrin Yes -Necrotic Tissue Type Adherent Slough -Structure Exposed None/Limited to Skin Breakdown -Texture (Deisi-wound Skin Appearance) No Abnormality Assessed -Moisture (Deisi-wound Skin Appearance No Abnormality ) Assessed -Color (Deisi-wound Skin Appearance) No Abnormality Assessed -Temperature (Deisi-wound Skin No Abnormality Appearance) (Pt Warm) -Tenderness on Palpation (Deisi-wound No Skin Appearance) -Ulcer Cleansing Rinsed/ Irrigated with Saline -Foul Odor after Cleansing No -Anesthetic Used 4% Lidocaine Solution [Edema Assessment] -Lower Limb Edema Present Yes -Right Calf (cm) 49 -Right Ankle (cm) 31 WC - Nurse 2 - General Ulcer CM Notes Start: 05/18/18 10:23 Freq: Status: Active Protocol: Activity Type Activity Date Activity User E-Sign Co-Sign Detail Recorded Client Recorded Date Recorded By Document 06/08/18 08:54 MW [id number] 06/08/18 08:55 MW 06/08/18 08:54 Wound Center Nurse 2 [Procedure/Treatment] #1- RT LAT LE -Time 08:54 -Correct Patient Yes -Correct Side, Site, Position Yes -Correct Procedure Yes -Procedure Performed Yes -Type of Procedure Debridement -Clinical Debridement Subcutaneous -Post Debridement Size (cm) - Length 2.0 -Post Debridement Size (cm) - Width 1.6 -Post Debridement Size (cm) - Depth 0.2 -Total Square Cm 3.20 -Wound/Ulcer Outcome Not Healed -Ulcer Cleansing Rinsed/ Irrigated with Saline -Foul Odor after Cleansing No -Bioengineered Tissue No -Bleeding Controlled with Pressure -Treatment Response Procedure Tolerated Well [See Physician Procedure note for Specifics] Pain Scale: 0-10 Numeric [Pain] -Is Patient Pain Free? Yes Musculoskeletal: No Tenderness to Palpation of Joints or Extremities Lymphatic: No Cervical, Supraclavicular, or Inguinal Adenopathy Neurological: Cranial nerves II-XII grossly intact, Neuro grossly intact Psych/Mental Status: Normal Affect, Appropriate Debridement Note Post-Debridement Measurements/Treatment WC - Nurse 2 - General Ulcer CM Notes Start: 05/18/18 10:23 Freq: Status: Active Protocol: Activity Type Activity Date Activity User E-Sign Co-Sign Detail Recorded Client Recorded Date Recorded By Document 05/18/18 10:31 MW [id number] 05/18/18 10:36 MW Document 05/25/18 09:59 MW [id number] 05/25/18 10:00 MW Document 06/01/18 09:00 MW [id number] 06/01/18 09:02 MW Document 06/08/18 08:54 MW [id number] 06/08/18 08:55 MW 05/18/18 05/25/18 06/01/18 10:31 09:59 09:00 Wound Center Nurse 2 #1- RT LAT LE -Time 10:32 09:59 09:00 -Correct Patient Yes Yes Yes -Correct Side, Site, Position Yes Yes Yes -Correct Procedure Yes Yes Yes -Procedure Performed Yes Yes Yes -Type of Procedure Debridement Debridement Debridement -Clinical Debridement Subcutaneous Subcutaneous Subcutaneous -Post Debridement Size (cm) - Length 1.5 1.7 1.8 -Post Debridement Size (cm) - Width 1.5 1.6 1.6 -Post Debridement Size (cm) - Depth 0.2 0.2 0.2 -Total Square Cm 2.25 2.72 2.88 -Wound/Ulcer Outcome Not Healed Not Healed Not Healed -Ulcer Cleansing Rinsed/ Rinsed/ Rinsed/ Irrigated with Irrigated with Irrigated with Saline Saline Saline -Foul Odor after Cleansing No No No -Bioengineered Tissue No No No -Bleeding Controlled with Pressure Pressure Pressure -Treatment Response Procedure Procedure Procedure Tolerated Well Tolerated Well Tolerated Well Pain Scale: 0-10 Numeric Is Patient Pain Free? Yes Yes Yes 06/08/18 08:54 Wound Center Nurse 2 #1- RT LAT LE -Time 08:54 -Correct Patient Yes -Correct Side, Site, Position Yes -Correct Procedure Yes -Procedure Performed Yes -Type of Procedure Debridement -Clinical Debridement Subcutaneous -Post Debridement Size (cm) - Length 2.0 -Post Debridement Size (cm) - Width 1.6 -Post Debridement Size (cm) - Depth 0.2 -Total Square Cm 3.20 -Wound/Ulcer Outcome Not Healed -Ulcer Cleansing Rinsed/ Irrigated with Saline -Foul Odor after Cleansing No -Bioengineered Tissue No -Bleeding Controlled with Pressure -Treatment Response Procedure Tolerated Well Pain Scale: 0-10 Numeric Is Patient Pain Free? Yes Wound debrided: Right lower leg wound Type of Debridement: Excisional debridement Anesthesia Used: 5% Lidocaine Gel Depth: Down to and including healthy tissue, in the subcutaneous layer Percentage of wound debrided: 100 Instrument Used: 7mm curette Tissue Removed: Slough and devitalized tissue Severity: Limited To Skin Breakdown Amount of bleeding with debridement: Mild Bleeding Controlled with: Compression and gauze Patient tolerated procedure well Assessment/Plan Active Problems Obesity (BMI 30-39.9) (Acute) Bilateral lower extremity edema (Acute) Nonhealing nonsurgical wound limited to breakdown of skin (Acute) Assessment: Right lateral lower leg wound nonhealing. Right lower leg edema. Peripheral neuropathy. Tumor on spine Plan: Wash area with Hibiclens. Apply Jennifer to wound base moistened cover with Adaptic gauze tape. Sid wraps to his lower extremity. Follow-up 1 weeks
== END 2018-06-10 23:59 ==
LOC: WC 09:00
PROVIDERS: Family Provider Family Medicine; PCP Family Medicine; Visit Provider Nurse Practitioner
DX: L97.811 Non-pressure chronic ulcer of other part of right lower leg limited to breakdown of skin (principal); R60.0 Localized edema; G62.9 Polyneuropathy, unspecified; E66.9 Obesity, unspecified; Z71.3 Dietary counseling and surveillance; Z68.43 Body mass index [BMI] 50.0-59.9, adult
CPT/HCPCS: 11042; 87070; 87075; 87205

== ENCOUNTER 2018-07-06 08:30 | Outpatient (RCR) | payer MEDICARE, SELFPAY ==
[2018-06-11 01:20] VITALS: BP 140/71; PULSE 63; RESP 20; TEMP 35.6
[2018-06-15 09:37] VITALS: BP 143/80; PULSE 59; RESP 18; TEMP 36.8
--- NOTE | 2018-06-15 12:24 | PCM.WC.PN ---
(1) Bilateral lower extremity edema Status: Acute Current Visit: Yes Code(s): R60.0 - Localized edema (2) Lumbar spine tumor Status: Acute Current Visit: Yes Code(s): D49.2 - Neoplasm of unspecified behavior of bone, soft tissue, and skin (3) Neuropathy of right lower extremity Status: Acute Current Visit: Yes Code(s): G57.91 - Unspecified mononeuropathy of right lower limb (4) Nonhealing nonsurgical wound limited to breakdown of skin Status: Acute Current Visit: Yes Code(s): T14.8XXA - Other injury of unspecified body region, initial encounter (5) Obesity (BMI 30-39.9) Status: Acute Current Visit: Yes Code(s): E66.9 - Obesity, unspecified Type of Wound Chief Complaint: Right lateral lower leg ulcer and healing History of Wound: 57-year-old white male who walks with a walker and is 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 Came here because he kicked the door with his right leg in January and still not healing. The areas about the size of a quarter. He has been using Silvadene and has been on several antibiotics with his for physician. Patient was referred to us for further care Progress of Wound: Today the wound is open debrided. Culture did not grow anything. Slightly smaller patient did get approval for puraply #1 that will be applied today. He has been approved for 10 applications hopefully is more superficial that it will heal within 1 or 2 applications. Redness no swelling increased - Physical Exam Vital Signs Temp Pulse Resp BP 98.2 F 59 L 18 143/80 H 06/15/18 09:37 06/15/18 09:37 06/15/18 09:37 06/15/18 09:37 General: Oriented x3, Cooperative, Well developed HEENT: Atraumatic, PERRLA Oral: Moist Mucosa Neck: Supple, No JVD Lungs: Clear to auscultation, Normal air movement Cardiovascular: Regular rate, Regular Rhythm Abdomen: Bowel Sounds Present, Soft, Non Tender, No Hepato-splenomegaly Extremities: No clubbing, No cyanosis, Edema, - - Right lateral lower leg wound Wound Measurements and Assessment WC - Nurse 1 - General Ulcer Measurement Start: 06/15/18 09:37 Freq: Status: Active Protocol: Activity Type Activity Date Activity User E-Sign Co-Sign Detail Recorded Client Recorded Date Recorded By Document 06/15/18 09:37 [id number] 06/15/18 09:39 06/15/18 09:37 Wound Center Nurse 1 [Ulcer Assessment] #1- RT LAT LE -Combined with other wound No -Current Size (cm) - Length 1.7 -Current Size (cm) - Width 1.8 -Current Size (cm) - Depth 0.1 -Total Square Cm 3.06 -Photo Taken No -Epithelialization Small 1-33% -Tunneling No -Undermining/Tunneling No -Circular Undermining No -Classification - Thickness Full Thickness without Exposed Support Structure -Exudate Amt Medium (34-66%) -Exudate Type Serosanguineous -Wound Margin Flat & Intact -Granulation Amt Medium (34-66%) -Granulation Quality Pale [place] -Slough/Fibrin Yes -Necrosis Amt Medium (34-66%) -Necrotic Tissue Type Adherent Slough -Structure Exposed Fat Layer Exposed None/Limited to Skin Breakdown -Texture (Deisi-wound Skin Appearance) Assessed Scarring -Moisture (Deisi-wound Skin Appearance No Abnormality ) Assessed -Color (Deisi-wound Skin Appearance) Assessed Hemosiderin Staining -Temperature (Deisi-wound Skin No Abnormality Appearance) (Pt Warm) -Tenderness on Palpation (Deisi-wound No Skin Appearance) -Ulcer Cleansing Rinsed/ Irrigated with Saline -Foul Odor after Cleansing No -Anesthetic Used 4% Lidocaine Solution WC - Nurse 2 - General Ulcer CM Notes Start: 06/15/18 09:37 Freq: Status: Active Protocol: Activity Type Activity Date Activity User E-Sign Co-Sign Detail Recorded Client Recorded Date Recorded By Document 06/15/18 10:03 MW [id number] 06/15/18 10:12 MW 06/15/18 10:03 Wound Center Nurse 2 [Procedure/Treatment] -Time 10:06 -Correct Patient Yes -Correct Side, Site, Position Yes -Correct Procedure Yes -Procedure Performed Yes -Type of Procedure Debridement -Clinical Debridement Subcutaneous -Post Debridement Size (cm) - Length 1.9 -Post Debridement Size (cm) - Width 1.7 -Post Debridement Size (cm) - Depth 0.2 -Total Square Cm 3.23 -Wound/Ulcer Outcome Not Healed -Ulcer Cleansing Rinsed/ Irrigated with Saline -Foul Odor after Cleansing No -Bioengineered Tissue Yes -Type of bioengineered Tissue [id number] -Expiration Date 09/12/20 -Product Lot Number [id number] -Percent Used 100 -Saline Lot Number [id number] -Bleeding Controlled with Pressure -Treatment Response Procedure Tolerated Well [See Physician Procedure note for Specifics] Pain Scale: 0-10 Numeric [Pain] -Is Patient Pain Free? Yes Musculoskeletal: No Tenderness to Palpation of Joints or Extremities Lymphatic: No Cervical, Supraclavicular, or Inguinal Adenopathy Neurological: Cranial nerves II-XII grossly intact, Neuro grossly intact Psych/Mental Status: Normal Affect, Appropriate Debridement Note Post-Debridement Measurements/Treatment WC - Nurse 2 - General Ulcer CM Notes Start: 06/15/18 09:37 Freq: Status: Active Protocol: Activity Type Activity Date Activity User E-Sign Co-Sign Detail Recorded Client Recorded Date Recorded By Document 06/15/18 10:03 MW [id number] 06/15/18 10:12 MW 06/15/18 10:03 Wound Center Nurse 2 #1- RT LAT LE -Time 10:06 -Correct Patient Yes -Correct Side, Site, Position Yes -Correct Procedure Yes -Procedure Performed Yes -Type of Procedure Debridement -Clinical Debridement Subcutaneous -Post Debridement Size (cm) - Length 1.9 -Post Debridement Size (cm) - Width 1.7 -Post Debridement Size (cm) - Depth 0.2 -Total Square Cm 3.23 -Wound/Ulcer Outcome Not Healed -Ulcer Cleansing Rinsed/ Irrigated with Saline -Foul Odor after Cleansing No -Bioengineered Tissue Yes -Type of bioengineered Tissue [id number] -Expiration Date 09/12/20 -Product Lot Number [id number] -Percent Used 100 -Saline Lot Number [id number] -Bleeding Controlled with Pressure -Treatment Response Procedure Tolerated Well Pain Scale: 0-10 Numeric Is Patient Pain Free? Yes Wound debrided: Right lateral lower leg wound Type of Debridement: Excisional debridement Anesthesia Used: 5% Lidocaine Gel Depth: Down to and including healthy tissue, in the subcutaneous layer Percentage of wound debrided: 100 Tissue Removed: Slough and fibrin Severity: Fat Layer Exposed Amount of bleeding with debridement: Mild Bleeding Controlled with: Compression and gauze Patient tolerated procedure well Assessment/Plan Active Problems Lumbar spine tumor (Acute) Neuropathy of right lower extremity (Acute) Obesity (BMI 30-39.9) (Acute) Bilateral lower extremity edema (Acute) Nonhealing nonsurgical wound limited to breakdown of skin (Acute) Assessment: Right lateral lower leg wound nonhealing. Right lower leg edema. Peripheral neuropathy. Tumor on spine Plan: Wash area with Hibiclens. #1 puraply applied to right lower leg dressing intact patient to leave alone for 1 week. Sid wraps to his lower extremity. Follow-up 1 weeks
--- NOTE | 2018-06-15 12:28 | PN.PCM_ITS ---
(1) Bilateral lower extremity edema Status: Acute Current Visit: Yes Code(s): R60.0 - Localized edema (2) Lumbar spine tumor Status: Acute Current Visit: Yes Code(s): D49.2 - Neoplasm of unspecified behavior of bone, soft tissue, and skin (3) Neuropathy of right lower extremity Status: Acute Current Visit: Yes Code(s): G57.91 - Unspecified mononeuropathy of right lower limb (4) Nonhealing nonsurgical wound limited to breakdown of skin Status: Acute Current Visit: Yes Code(s): T14.8XXA - Other injury of unspecified body region, initial encounter (5) Obesity (BMI 30-39.9) Status: Acute Current Visit: Yes Code(s): E66.9 - Obesity, unspecified Type of Wound Chief Complaint: Right lateral lower leg ulcer and healing History of Wound: 57-year-old white male who walks with a walker and is 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 Came here because he kicked the door with his right leg in January and still not healing. The areas about the size of a quarter. He has been using Silvadene and has been on several antibiotics with his for physician. Patient was referred to us for further care Progress of Wound: Today the wound is open debrided. Culture did not grow anything. Slightly smaller patient did get approval for puraply #1 that will be applied today. He has been approved for 10 applications hopefully is more superficial that it will heal within 1 or 2 applications. Redness no swelling increased - Physical Exam Vital Signs Temp Pulse Resp BP 98.2 F 59 L 18 143/80 H 06/15/18 09:37 06/15/18 09:37 06/15/18 09:37 06/15/18 09:37 General: Oriented x3, Cooperative, Well developed HEENT: Atraumatic, PERRLA Oral: Moist Mucosa Neck: Supple, No JVD Lungs: Clear to auscultation, Normal air movement Cardiovascular: Regular rate, Regular Rhythm Abdomen: Bowel Sounds Present, Soft, Non Tender, No Hepato-splenomegaly Extremities: No clubbing, No cyanosis, Edema, - - Right lateral lower leg wound Wound Measurements and Assessment WC - Nurse 1 - General Ulcer Measurement Start: 06/15/18 09:37 Freq: Status: Active Protocol: Activity Type Activity Date Activity User E-Sign Co-Sign Detail Recorded Client Recorded Date Recorded By Document 06/15/18 09:37 [id number] 06/15/18 09:39 06/15/18 09:37 Wound Center Nurse 1 [Ulcer Assessment] #1- RT LAT LE -Combined with other wound No -Current Size (cm) - Length 1.7 -Current Size (cm) - Width 1.8 -Current Size (cm) - Depth 0.1 -Total Square Cm 3.06 -Photo Taken No -Epithelialization Small 1-33% -Tunneling No -Undermining/Tunneling No -Circular Undermining No -Classification - Thickness Full Thickness without Exposed Support Structure -Exudate Amt Medium (34-66%) -Exudate Type Serosanguineous -Wound Margin Flat & Intact -Granulation Amt Medium (34-66%) -Granulation Quality Pale [place] -Slough/Fibrin Yes -Necrosis Amt Medium (34-66%) -Necrotic Tissue Type Adherent Slough -Structure Exposed Fat Layer Exposed None/Limited to Skin Breakdown -Texture (Deisi-wound Skin Appearance) Assessed Scarring -Moisture (Deisi-wound Skin Appearance No Abnormality ) Assessed -Color (Deisi-wound Skin Appearance) Assessed Hemosiderin Staining -Temperature (Deisi-wound Skin No Abnormality Appearance) (Pt Warm) -Tenderness on Palpation (Deisi-wound No Skin Appearance) -Ulcer Cleansing Rinsed/ Irrigated with Saline -Foul Odor after Cleansing No -Anesthetic Used 4% Lidocaine Solution WC - Nurse 2 - General Ulcer CM Notes Start: 06/15/18 09:37 Freq: Status: Active Protocol: Activity Type Activity Date Activity User E-Sign Co-Sign Detail Recorded Client Recorded Date Recorded By Document 06/15/18 10:03 MW [id number] 06/15/18 10:12 MW 06/15/18 10:03 Wound Center Nurse 2 [Procedure/Treatment] -Time 10:06 -Correct Patient Yes -Correct Side, Site, Position Yes -Correct Procedure Yes -Procedure Performed Yes -Type of Procedure Debridement -Clinical Debridement Subcutaneous -Post Debridement Size (cm) - Length 1.9 -Post Debridement Size (cm) - Width 1.7 -Post Debridement Size (cm) - Depth 0.2 -Total Square Cm 3.23 -Wound/Ulcer Outcome Not Healed -Ulcer Cleansing Rinsed/ Irrigated with Saline -Foul Odor after Cleansing No -Bioengineered Tissue Yes -Type of bioengineered Tissue [id number] -Expiration Date 09/12/20 -Product Lot Number [id number] -Percent Used 100 -Saline Lot Number [id number] -Bleeding Controlled with Pressure -Treatment Response Procedure Tolerated Well [See Physician Procedure note for Specifics] Pain Scale: 0-10 Numeric [Pain] -Is Patient Pain Free? Yes Musculoskeletal: No Tenderness to Palpation of Joints or Extremities Lymphatic: No Cervical, Supraclavicular, or Inguinal Adenopathy Neurological: Cranial nerves II-XII grossly intact, Neuro grossly intact Psych/Mental Status: Normal Affect, Appropriate Debridement Note Post-Debridement Measurements/Treatment WC - Nurse 2 - General Ulcer CM Notes Start: 06/15/18 09:37 Freq: Status: Active Protocol: Activity Type Activity Date Activity User E-Sign Co-Sign Detail Recorded Client Recorded Date Recorded By Document 06/15/18 10:03 MW [id number] 06/15/18 10:12 MW 06/15/18 10:03 Wound Center Nurse 2 #1- RT LAT LE -Time 10:06 -Correct Patient Yes -Correct Side, Site, Position Yes -Correct Procedure Yes -Procedure Performed Yes -Type of Procedure Debridement -Clinical Debridement Subcutaneous -Post Debridement Size (cm) - Length 1.9 -Post Debridement Size (cm) - Width 1.7 -Post Debridement Size (cm) - Depth 0.2 -Total Square Cm 3.23 -Wound/Ulcer Outcome Not Healed -Ulcer Cleansing Rinsed/ Irrigated with Saline -Foul Odor after Cleansing No -Bioengineered Tissue Yes -Type of bioengineered Tissue [id number] -Expiration Date 09/12/20 -Product Lot Number [id number] -Percent Used 100 -Saline Lot Number [id number] -Bleeding Controlled with Pressure -Treatment Response Procedure Tolerated Well Pain Scale: 0-10 Numeric Is Patient Pain Free? Yes Wound debrided: Right lateral lower leg wound Type of Debridement: Excisional debridement Anesthesia Used: 5% Lidocaine Gel Depth: Down to and including healthy tissue, in the subcutaneous layer Percentage of wound debrided: 100 Tissue Removed: Slough and fibrin Severity: Fat Layer Exposed Amount of bleeding with debridement: Mild Bleeding Controlled with: Compression and gauze Patient tolerated procedure well Assessment/Plan Active Problems Lumbar spine tumor (Acute) Neuropathy of right lower extremity (Acute) Obesity (BMI 30-39.9) (Acute) Bilateral lower extremity edema (Acute) Nonhealing nonsurgical wound limited to breakdown of skin (Acute) Assessment: Right lateral lower leg wound nonhealing. Right lower leg edema. Peripheral neuropathy. Tumor on spine Plan: Wash area with Hibiclens. #1 puraply applied to right lower leg dressing intact patient to leave alone for 1 week. Sid wraps to his lower extremity. Follow-up 1 weeks
[2018-06-22 08:34] VITALS: BP 188/92; PULSE 62; RESP 18; TEMP 36.6
--- NOTE | 2018-06-22 11:19 | PCM.WC.PN ---
(1) Bilateral lower extremity edema Status: Acute Current Visit: Yes Code(s): R60.0 - Localized edema (2) Lumbar spine tumor Status: Acute Current Visit: Yes Code(s): D49.2 - Neoplasm of unspecified behavior of bone, soft tissue, and skin (3) Neuropathy of right lower extremity Status: Acute Current Visit: Yes Code(s): G57.91 - Unspecified mononeuropathy of right lower limb (4) Nonhealing nonsurgical wound limited to breakdown of skin Status: Acute Current Visit: Yes Code(s): T14.8XXA - Other injury of unspecified body region, initial encounter (5) Obesity (BMI 30-39.9) Status: Acute Current Visit: Yes Code(s): E66.9 - Obesity, unspecified Type of Wound Chief Complaint: Right lateral lower leg ulcer and healing History of Wound: 57-year-old white male who walks with a walker and is 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 Came here because he kicked the door with his right leg in January and still not healing. The areas about the size of a quarter. He has been using Silvadene and has been on several antibiotics with his for physician. Patient was referred to us for further care Progress of Wound: Today the wound is open debrided. Culture did not grow anything. Slightly smaller patient did get approval for puraply. #2 applied today. The wound is smaller and starting to grow new cells after 1 application. No redness no swelling increased - Physical Exam Vital Signs Temp Pulse Resp BP 97.8 F 62 18 188/92 H 06/22/18 08:34 06/22/18 08:34 06/22/18 08:34 06/22/18 08:34 General: Oriented x3, Cooperative, Well developed HEENT: Atraumatic, PERRLA Oral: Moist Mucosa Neck: Supple, No JVD Lungs: Clear to auscultation, Normal air movement Cardiovascular: Regular rate, Regular Rhythm Abdomen: Bowel Sounds Present, Soft, Non Tender, No Hepato-splenomegaly Extremities: No clubbing, No edema, - - Right lateral lower leg wound Wound Measurements and Assessment WC - Nurse 1 - General Ulcer Measurement Start: 06/15/18 09:37 Freq: Status: Active Protocol: Activity Type Activity Date Activity User E-Sign Co-Sign Detail Recorded Client Recorded Date Recorded By Document 06/22/18 08:34 TN [id number] 06/22/18 08:41 TN 06/22/18 08:34 Wound Center Nurse 1 [Ulcer Assessment] #1- RT LAT LE -Combined with other wound No -Current Size (cm) - Length 1.3 -Current Size (cm) - Width 1.8 -Current Size (cm) - Depth 0.2 -Total Square Cm 2.34 -Photo Taken No -Epithelialization None Present -Tunneling No -Undermining/Tunneling No -Circular Undermining No -Classification - Thickness Full Thickness without Exposed Support Structure -Change in Wound Grade/Stage No Query Text:If change please identify the Stage/Grade in the comment (ie. S2 G3) -Exudate Amt Medium (34-66%) -Exudate Type Serosanguineous -Wound Margin Flat & Intact -Granulation Amt Large (67-100%) -Granulation Quality Red -Slough/Fibrin Yes -Necrotic Tissue Type Adherent Slough -Structure Exposed None/Limited to Skin Breakdown -Texture (Deisi-wound Skin Appearance) Assessed Scarring -Moisture (Deisi-wound Skin Appearance Assessed ) Maceration -Color (Deisi-wound Skin Appearance) Assessed Hemosiderin Staining -Temperature (Deisi-wound Skin No Abnormality Appearance) (Pt Warm) -Tenderness on Palpation (Deisi-wound No Skin Appearance) -Ulcer Cleansing Rinsed/ Irrigated with Saline -Foul Odor after Cleansing No -Anesthetic Used 4% Lidocaine Solution [Edema Assessment] -Lower Limb Edema Present No -Right Calf (cm) 49 -Right Ankle (cm) 30 WC - Nurse 2 - General Ulcer CM Notes Start: 06/15/18 09:37 Freq: Status: Active Protocol: Activity Type Activity Date Activity User E-Sign Co-Sign Detail Recorded Client Recorded Date Recorded By Document 06/22/18 09:02 MW [id number] 06/22/18 09:09 MW 06/22/18 09:02 Wound Center Nurse 2 [Procedure/Treatment] #1- RT LAT LE -Time 09:03 -Correct Patient Yes -Correct Side, Site, Position Yes -Correct Procedure Yes -Procedure Performed Yes -Type of Procedure Debridement -Clinical Debridement Subcutaneous -Post Debridement Size (cm) - Length 1.8 -Post Debridement Size (cm) - Width 1.5 -Post Debridement Size (cm) - Depth 0.2 -Total Square Cm 2.70 -Wound/Ulcer Outcome Not Healed -Ulcer Cleansing Rinsed/ Irrigated with Saline -Foul Odor after Cleansing No -Bioengineered Tissue Yes -Type of bioengineered Tissue [id number] -Expiration Date 12/10/19 -Product Lot Number [id number] -Percent Used 100 -Saline Lot Number [id number] -Bleeding Controlled with Pressure -Treatment Response Procedure Tolerated Well [See Physician Procedure note for Specifics] Pain Scale: 0-10 Numeric [Pain] -Is Patient Pain Free? Yes Musculoskeletal: No Tenderness to Palpation of Joints or Extremities Lymphatic: No Cervical, Supraclavicular, or Inguinal Adenopathy Neurological: Cranial nerves II-XII grossly intact, Neuro grossly intact Psych/Mental Status: Normal Affect, Appropriate Debridement Note Post-Debridement Measurements/Treatment WC - Nurse 2 - General Ulcer CM Notes Start: 06/15/18 09:37 Freq: Status: Active Protocol: Activity Type Activity Date Activity User E-Sign Co-Sign Detail Recorded Client Recorded Date Recorded By Document 06/15/18 10:03 MW [id number] 06/15/18 10:12 MW Document 06/22/18 09:02 MW [id number] 06/22/18 09:09 MW 06/15/18 06/22/18 10:03 09:02 Wound Center Nurse 2 #1- RT LAT LE -Time 10:06 09:03 -Correct Patient Yes Yes -Correct Side, Site, Position Yes Yes -Correct Procedure Yes Yes -Procedure Performed Yes Yes -Type of Procedure Debridement Debridement -Clinical Debridement Subcutaneous Subcutaneous -Post Debridement Size (cm) - Length 1.9 1.8 -Post Debridement Size (cm) - Width 1.7 1.5 -Post Debridement Size (cm) - Depth 0.2 0.2 -Total Square Cm 3.23 2.70 -Wound/Ulcer Outcome Not Healed Not Healed -Ulcer Cleansing Rinsed/ Rinsed/ Irrigated with Irrigated with Saline Saline -Foul Odor after Cleansing No No -Bioengineered Tissue Yes Yes -Type of bioengineered Tissue [id number] -Expiration Date 09/12/20 12/10/19 -Product Lot Number [id number] -Percent Used 100 100 -Saline Lot Number [id number] -Bleeding Controlled with Pressure Pressure -Treatment Response Procedure Procedure Tolerated Well Tolerated Well Pain Scale: 0-10 Numeric Is Patient Pain Free? Yes Yes Wound debrided: Right lateral lower wound Type of Debridement: Excisional debridement Anesthesia Used: 5% Lidocaine Gel Depth: Down to and including healthy tissue, in the subcutaneous layer Percentage of wound debrided: 100 Instrument Used: 7mm curette Tissue Removed: Fibrin Severity: Limited To Skin Breakdown Amount of bleeding with debridement: Mild Bleeding Controlled with: Compression and gauze Patient tolerated procedure well Assessment/Plan Active Problems Lumbar spine tumor (Acute) Neuropathy of right lower extremity (Acute) Obesity (BMI 30-39.9) (Acute) Bilateral lower extremity edema (Acute) Nonhealing nonsurgical wound limited to breakdown of skin (Acute) Assessment: Right lateral lower leg wound nonhealing. Right lower leg edema. Peripheral neuropathy. Tumor on spine Plan: Wash area with Hibiclens. #2 puraply applied to right lower leg dressing intact patient to leave alone for 2 week. Sid wraps to his lower extremity. Follow-up 2 weeks
--- NOTE | 2018-06-22 11:23 | PN.PCM_ITS ---
(1) Bilateral lower extremity edema Status: Acute Current Visit: Yes Code(s): R60.0 - Localized edema (2) Lumbar spine tumor Status: Acute Current Visit: Yes Code(s): D49.2 - Neoplasm of unspecified behavior of bone, soft tissue, and skin (3) Neuropathy of right lower extremity Status: Acute Current Visit: Yes Code(s): G57.91 - Unspecified mononeuropathy of right lower limb (4) Nonhealing nonsurgical wound limited to breakdown of skin Status: Acute Current Visit: Yes Code(s): T14.8XXA - Other injury of unspecified body region, initial encounter (5) Obesity (BMI 30-39.9) Status: Acute Current Visit: Yes Code(s): E66.9 - Obesity, unspecified Type of Wound Chief Complaint: Right lateral lower leg ulcer and healing History of Wound: 57-year-old white male who walks with a walker and is 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 Came here because he kicked the door with his right leg in January and still not healing. The areas about the size of a quarter. He has been using Silvadene and has been on several antibiotics with his for physician. Patient was referred to us for further care Progress of Wound: Today the wound is open debrided. Culture did not grow anything. Slightly smaller patient did get approval for puraply. #2 applied today. The wound is smaller and starting to grow new cells after 1 application. No redness no swelling increased - Physical Exam Vital Signs Temp Pulse Resp BP 97.8 F 62 18 188/92 H 06/22/18 08:34 06/22/18 08:34 06/22/18 08:34 06/22/18 08:34 General: Oriented x3, Cooperative, Well developed HEENT: Atraumatic, PERRLA Oral: Moist Mucosa Neck: Supple, No JVD Lungs: Clear to auscultation, Normal air movement Cardiovascular: Regular rate, Regular Rhythm Abdomen: Bowel Sounds Present, Soft, Non Tender, No Hepato-splenomegaly Extremities: No clubbing, No edema, - - Right lateral lower leg wound Wound Measurements and Assessment WC - Nurse 1 - General Ulcer Measurement Start: 06/15/18 09:37 Freq: Status: Active Protocol: Activity Type Activity Date Activity User E-Sign Co-Sign Detail Recorded Client Recorded Date Recorded By Document 06/22/18 08:34 TN [id number] 06/22/18 08:41 TN 06/22/18 08:34 Wound Center Nurse 1 [Ulcer Assessment] #1- RT LAT LE -Combined with other wound No -Current Size (cm) - Length 1.3 -Current Size (cm) - Width 1.8 -Current Size (cm) - Depth 0.2 -Total Square Cm 2.34 -Photo Taken No -Epithelialization None Present -Tunneling No -Undermining/Tunneling No -Circular Undermining No -Classification - Thickness Full Thickness without Exposed Support Structure -Change in Wound Grade/Stage No Query Text:If change please identify the Stage/Grade in the comment (ie. S2 G3) -Exudate Amt Medium (34-66%) -Exudate Type Serosanguineous -Wound Margin Flat & Intact -Granulation Amt Large (67-100%) -Granulation Quality Red -Slough/Fibrin Yes -Necrotic Tissue Type Adherent Slough -Structure Exposed None/Limited to Skin Breakdown -Texture (Deisi-wound Skin Appearance) Assessed Scarring -Moisture (Deisi-wound Skin Appearance Assessed ) Maceration -Color (Deisi-wound Skin Appearance) Assessed Hemosiderin Staining -Temperature (Deisi-wound Skin No Abnormality Appearance) (Pt Warm) -Tenderness on Palpation (Deisi-wound No Skin Appearance) -Ulcer Cleansing Rinsed/ Irrigated with Saline -Foul Odor after Cleansing No -Anesthetic Used 4% Lidocaine Solution [Edema Assessment] -Lower Limb Edema Present No -Right Calf (cm) 49 -Right Ankle (cm) 30 WC - Nurse 2 - General Ulcer CM Notes Start: 06/15/18 09:37 Freq: Status: Active Protocol: Activity Type Activity Date Activity User E-Sign Co-Sign Detail Recorded Client Recorded Date Recorded By Document 06/22/18 09:02 MW [id number] 06/22/18 09:09 MW 06/22/18 09:02 Wound Center Nurse 2 [Procedure/Treatment] #1- RT LAT LE -Time 09:03 -Correct Patient Yes -Correct Side, Site, Position Yes -Correct Procedure Yes -Procedure Performed Yes -Type of Procedure Debridement -Clinical Debridement Subcutaneous -Post Debridement Size (cm) - Length 1.8 -Post Debridement Size (cm) - Width 1.5 -Post Debridement Size (cm) - Depth 0.2 -Total Square Cm 2.70 -Wound/Ulcer Outcome Not Healed -Ulcer Cleansing Rinsed/ Irrigated with Saline -Foul Odor after Cleansing No -Bioengineered Tissue Yes -Type of bioengineered Tissue [id number] -Expiration Date 12/10/19 -Product Lot Number [id number] -Percent Used 100 -Saline Lot Number [id number] -Bleeding Controlled with Pressure -Treatment Response Procedure Tolerated Well [See Physician Procedure note for Specifics] Pain Scale: 0-10 Numeric [Pain] -Is Patient Pain Free? Yes Musculoskeletal: No Tenderness to Palpation of Joints or Extremities Lymphatic: No Cervical, Supraclavicular, or Inguinal Adenopathy Neurological: Cranial nerves II-XII grossly intact, Neuro grossly intact Psych/Mental Status: Normal Affect, Appropriate Debridement Note Post-Debridement Measurements/Treatment WC - Nurse 2 - General Ulcer CM Notes Start: 06/15/18 09:37 Freq: Status: Active Protocol: Activity Type Activity Date Activity User E-Sign Co-Sign Detail Recorded Client Recorded Date Recorded By Document 06/15/18 10:03 MW [id number] 06/15/18 10:12 MW Document 06/22/18 09:02 MW [id number] 06/22/18 09:09 MW 06/15/18 06/22/18 10:03 09:02 Wound Center Nurse 2 #1- RT LAT LE -Time 10:06 09:03 -Correct Patient Yes Yes -Correct Side, Site, Position Yes Yes -Correct Procedure Yes Yes -Procedure Performed Yes Yes -Type of Procedure Debridement Debridement -Clinical Debridement Subcutaneous Subcutaneous -Post Debridement Size (cm) - Length 1.9 1.8 -Post Debridement Size (cm) - Width 1.7 1.5 -Post Debridement Size (cm) - Depth 0.2 0.2 -Total Square Cm 3.23 2.70 -Wound/Ulcer Outcome Not Healed Not Healed -Ulcer Cleansing Rinsed/ Rinsed/ Irrigated with Irrigated with Saline Saline -Foul Odor after Cleansing No No -Bioengineered Tissue Yes Yes -Type of bioengineered Tissue [id number] -Expiration Date 09/12/20 12/10/19 -Product Lot Number [id number] -Percent Used 100 100 -Saline Lot Number [id number] -Bleeding Controlled with Pressure Pressure -Treatment Response Procedure Procedure Tolerated Well Tolerated Well Pain Scale: 0-10 Numeric Is Patient Pain Free? Yes Yes Wound debrided: Right lateral lower wound Type of Debridement: Excisional debridement Anesthesia Used: 5% Lidocaine Gel Depth: Down to and including healthy tissue, in the subcutaneous layer Percentage of wound debrided: 100 Instrument Used: 7mm curette Tissue Removed: Fibrin Severity: Limited To Skin Breakdown Amount of bleeding with debridement: Mild Bleeding Controlled with: Compression and gauze Patient tolerated procedure well Assessment/Plan Active Problems Lumbar spine tumor (Acute) Neuropathy of right lower extremity (Acute) Obesity (BMI 30-39.9) (Acute) Bilateral lower extremity edema (Acute) Nonhealing nonsurgical wound limited to breakdown of skin (Acute) Assessment: Right lateral lower leg wound nonhealing. Right lower leg edema. Peripheral neuropathy. Tumor on spine Plan: Wash area with Hibiclens. #2 puraply applied to right lower leg dressing intact patient to leave alone for 2 week. Sid wraps to his lower extremity. Follow-up 2 weeks
[2018-06-28 08:26] VITALS: BP 188/83; PULSE 64; RESP 22; TEMP 36.8
--- NOTE | 2018-06-28 09:00 | PCM.WC.PN ---
(1) Ulcer of right lower extremity with fat layer exposed Status: Acute Current Visit: Yes Code(s): L97.912 - Non-pressure chronic ulcer of unspecified part of right lower leg with fat layer exposed (2) Lumbar spine tumor Status: Acute Current Visit: Yes Code(s): D49.2 - Neoplasm of unspecified behavior of bone, soft tissue, and skin (3) Neuropathy of right lower extremity Status: Acute Current Visit: Yes Code(s): G57.91 - Unspecified mononeuropathy of right lower limb (4) Obesity (BMI 30-39.9) Status: Acute Current Visit: Yes Code(s): E66.9 - Obesity, unspecified (5) Bilateral lower extremity edema Status: Acute Current Visit: Yes Code(s): R60.0 - Localized edema (6) Nonhealing nonsurgical wound limited to breakdown of skin Status: Acute Current Visit: Yes Code(s): T14.8XXA - Other injury of unspecified body region, initial encounter Type of Wound Chief Complaint: Right lateral lower leg ulcer and healing History of Wound: 57-year-old white male who walks with a walker and is 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 Came here because he kicked the door with his right leg in January and still not healing. The areas about the size of a quarter. He has been using Silvadene and has been on several antibiotics with his for physician. Patient was referred to us for further care Progress of Wound: Patient was seen as courtesy visit today. Slow improvement noted. Puraply #3 applied today. The wound is smaller and starting to grow new cells. No redness no increased swelling. - Physical Exam Vital Signs Temp Pulse Resp BP 98.2 F 64 22 H 188/83 H 06/28/18 08:26 06/28/18 08:26 06/28/18 08:26 06/28/18 08:26 General: Alert, Oriented x3, Cooperative, No apparent distress Extremities: Capillary Refill Less than 3 Seconds, No Calf Tenderness, Edema - Negative Navdeep and Hall sign lower extremity edema, Peripheral Pulses Normal - DP pulse palpable PT pulse nonpalpable due to edema Skin: Ulcer/ Wound - Ulcer noted to right posterior lateral lower leg with fat layer exposed. Base is a mixture of adherent slough, fibrin, granular tissue. There is no probing, no tracking, no undermining. There is no surrounding cellulitis, no increase in warmth, and no purulence appreciated. Wound Measurements and Assessment WC - Nurse 1 - General Ulcer Measurement Start: 06/15/18 09:37 Freq: Status: Active Protocol: Activity Type Activity Date Activity User E-Sign Co-Sign Detail Recorded Client Recorded Date Recorded By Document 06/28/18 08:26 DL [id number] 06/28/18 08:30 DL 06/28/18 08:26 Wound Center Nurse 1 [Ulcer Assessment] #1- RT LAT LE -Current Size (cm) - Length 1.8 -Current Size (cm) - Width 1.7 -Current Size (cm) - Depth 0.1 -Total Square Cm 3.06 -Photo Taken No -Exudate Amt Small (1-33%) -Exudate Type Serosanguineous -Wound Margin Distinct, Outline Attached -Granulation Amt Large (67-100%) -Granulation Quality Red -Necrosis Amt Small (1-33%) -Necrotic Tissue Type Adherent Slough -Structure Exposed N/A -Texture (Deisi-wound Skin Appearance) Scarring -Moisture (Deisi-wound Skin Appearance Maceration ) -Color (Deisi-wound Skin Appearance) Hemosiderin Staining -Temperature (Deisi-wound Skin No Abnormality Appearance) (Pt Warm) -Ulcer Cleansing Rinsed/ Irrigated with Saline -Foul Odor after Cleansing No -Anesthetic Used 4% Lidocaine Solution [Edema Assessment] -Left Calf (cm) 54.5 -Left Ankle (cm) 32 WC - Nurse 2 - General Ulcer CM Notes Start: 06/15/18 09:37 Freq: Status: Active Protocol: Activity Type Activity Date Activity User E-Sign Co-Sign Detail Recorded Client Recorded Date Recorded By Document 06/28/18 08:50 DV [id number] 06/28/18 08:59 DV 06/28/18 08:50 Wound Center Nurse 2 [Procedure/Treatment] #1- RT LAT LE -Time 08:52 -Correct Patient Yes -Correct Side, Site, Position Yes -Correct Procedure Yes -Procedure Performed Yes -Type of Procedure Debridement -Clinical Debridement Subcutaneous -Post Debridement Size (cm) - Length 1.7 -Post Debridement Size (cm) - Width 1.6 -Post Debridement Size (cm) - Depth 0.2 -Total Square Cm 2.72 -Wound/Ulcer Outcome Not Healed -Ulcer Cleansing Rinsed/ Irrigated with Saline -Foul Odor after Cleansing No -Type of bioengineered Tissue [id number] -Expiration Date 09/12/20 -Product Lot Number [id number] -Percent Used 100 -Saline Lot Number [id number] -Injectable Lidocaine (%) 4 -Bleeding Controlled with Pressure -Treatment Response Procedure Tolerated Well [See Physician Procedure note for Specifics] Pain Scale: 0-10 Numeric [Pain] -Is Patient Pain Free? Yes Musculoskeletal: No Tenderness to Palpation of Joints or Extremities Neurological: Sensory exam intact to light touch and pain Psych/Mental Status: Normal Affect, Appropriate Debridement Note Post-Debridement Measurements/Treatment WC - Nurse 2 - General Ulcer CM Notes Start: 06/15/18 09:37 Freq: Status: Active Protocol: Activity Type Activity Date Activity User E-Sign Co-Sign Detail Recorded Client Recorded Date Recorded By Document 06/15/18 10:03 MW [id number] 06/15/18 10:12 MW Document 06/22/18 09:02 MW [id number] 06/22/18 09:09 MW Document 06/28/18 08:50 DV [id number] 06/28/18 08:59 DV 06/15/18 06/22/18 06/28/18 10:03 09:02 08:50 Wound Center Nurse 2 #1- RT LAT LE -Time 10:06 09:03 08:52 -Correct Patient Yes Yes Yes -Correct Side, Site, Position Yes Yes Yes -Correct Procedure Yes Yes Yes -Procedure Performed Yes Yes Yes -Type of Procedure Debridement Debridement Debridement -Clinical Debridement Subcutaneous Subcutaneous Subcutaneous -Post Debridement Size (cm) - Length 1.9 1.8 1.7 -Post Debridement Size (cm) - Width 1.7 1.5 1.6 -Post Debridement Size (cm) - Depth 0.2 0.2 0.2 -Total Square Cm 3.23 2.70 2.72 -Wound/Ulcer Outcome Not Healed Not Healed Not Healed -Ulcer Cleansing Rinsed/ Rinsed/ Rinsed/ Irrigated with Irrigated with Irrigated with Saline Saline Saline -Foul Odor after Cleansing No No No -Bioengineered Tissue Yes Yes -Type of bioengineered Tissue [id number] -Expiration Date 09/12/20 12/10/19 09/12/20 -Product Lot Number [id number] -Percent Used 100 100 100 -Saline Lot Number [id number] -Injectable Lidocaine (%) 4 -Bleeding Controlled with Pressure Pressure Pressure -Treatment Response Procedure Procedure Procedure Tolerated Well Tolerated Well Tolerated Well Pain Scale: 0-10 Numeric Is Patient Pain Free? Yes Yes Yes Wound debrided: Right lateral lower leg Laterality: Right Type of Debridement: Excisional debridement Anesthesia Used: 4% Lidocaine Solution Depth: Down to and including healthy tissue, in the subcutaneous layer Percentage of wound debrided: 100 Instrument Used: 7mm curette Tissue Removed: Adherent slough, fibrin Severity: Fat Layer Exposed Amount of bleeding with debridement: Mild Bleeding Controlled with: Pressure Patient tolerated procedure well Assessment/Plan Active Problems Lumbar spine tumor (Acute) Neuropathy of right lower extremity (Acute) Obesity (BMI 30-39.9) (Acute) Bilateral lower extremity edema (Acute) Nonhealing nonsurgical wound limited to breakdown of skin (Acute) Ulcer of right lower extremity with fat layer exposed (Acute) Assessment: Right lateral lower leg wound nonhealing. Right lower leg edema. Peripheral neuropathy. Tumor on spine Plan: Patient was seen as a courtesy visit today. Wash area with Hibiclens. A subcutaneous debridement was performed as noted in the clinical panel. #3 puraply applied to right lower leg dressing intact patient to leave alone until next week at follow-up. Patient was having trouble applying Sid wraps properly, and was dispensed Tubigrip's today for compression. Patient to keep pressure off of area. Follow-up 1 week, but is to call sooner if any issues or problems arise.
--- NOTE | 2018-06-28 09:04 | PN.PCM_ITS ---
(1) Ulcer of right lower extremity with fat layer exposed Status: Acute Current Visit: Yes Code(s): L97.912 - Non-pressure chronic ulcer of unspecified part of right lower leg with fat layer exposed (2) Lumbar spine tumor Status: Acute Current Visit: Yes Code(s): D49.2 - Neoplasm of unspecified behavior of bone, soft tissue, and skin (3) Neuropathy of right lower extremity Status: Acute Current Visit: Yes Code(s): G57.91 - Unspecified mononeuropathy of right lower limb (4) Obesity (BMI 30-39.9) Status: Acute Current Visit: Yes Code(s): E66.9 - Obesity, unspecified (5) Bilateral lower extremity edema Status: Acute Current Visit: Yes Code(s): R60.0 - Localized edema (6) Nonhealing nonsurgical wound limited to breakdown of skin Status: Acute Current Visit: Yes Code(s): T14.8XXA - Other injury of unspecified body region, initial encounter Type of Wound Chief Complaint: Right lateral lower leg ulcer and healing History of Wound: 57-year-old white male who walks with a walker and is 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 Came here because he kicked the door with his right leg in January and still not healing. The areas about the size of a quarter. He has been using Silvadene and has been on several antibiotics with his for physician. Patient was referred to us for further care Progress of Wound: Patient was seen as courtesy visit today. Slow improvement noted. Puraply #3 applied today. The wound is smaller and starting to grow new cells. No redness no increased swelling. - Physical Exam Vital Signs Temp Pulse Resp BP 98.2 F 64 22 H 188/83 H 06/28/18 08:26 06/28/18 08:26 06/28/18 08:26 06/28/18 08:26 General: Alert, Oriented x3, Cooperative, No apparent distress Extremities: Capillary Refill Less than 3 Seconds, No Calf Tenderness, Edema - Negative Navdeep and Hall sign lower extremity edema, Peripheral Pulses Normal - DP pulse palpable PT pulse nonpalpable due to edema Skin: Ulcer/ Wound - Ulcer noted to right posterior lateral lower leg with fat layer exposed. Base is a mixture of adherent slough, fibrin, granular tissue. There is no probing, no tracking, no undermining. There is no surrounding cellulitis, no increase in warmth, and no purulence appreciated. Wound Measurements and Assessment WC - Nurse 1 - General Ulcer Measurement Start: 06/15/18 09:37 Freq: Status: Active Protocol: Activity Type Activity Date Activity User E-Sign Co-Sign Detail Recorded Client Recorded Date Recorded By Document 06/28/18 08:26 DL [id number] 06/28/18 08:30 DL 06/28/18 08:26 Wound Center Nurse 1 [Ulcer Assessment] #1- RT LAT LE -Current Size (cm) - Length 1.8 -Current Size (cm) - Width 1.7 -Current Size (cm) - Depth 0.1 -Total Square Cm 3.06 -Photo Taken No -Exudate Amt Small (1-33%) -Exudate Type Serosanguineous -Wound Margin Distinct, Outline Attached -Granulation Amt Large (67-100%) -Granulation Quality Red -Necrosis Amt Small (1-33%) -Necrotic Tissue Type Adherent Slough -Structure Exposed N/A -Texture (Deisi-wound Skin Appearance) Scarring -Moisture (Deisi-wound Skin Appearance Maceration ) -Color (Deisi-wound Skin Appearance) Hemosiderin Staining -Temperature (Deisi-wound Skin No Abnormality Appearance) (Pt Warm) -Ulcer Cleansing Rinsed/ Irrigated with Saline -Foul Odor after Cleansing No -Anesthetic Used 4% Lidocaine Solution [Edema Assessment] -Left Calf (cm) 54.5 -Left Ankle (cm) 32 WC - Nurse 2 - General Ulcer CM Notes Start: 06/15/18 09:37 Freq: Status: Active Protocol: Activity Type Activity Date Activity User E-Sign Co-Sign Detail Recorded Client Recorded Date Recorded By Document 06/28/18 08:50 DV [id number] 06/28/18 08:59 DV 06/28/18 08:50 Wound Center Nurse 2 [Procedure/Treatment] #1- RT LAT LE -Time 08:52 -Correct Patient Yes -Correct Side, Site, Position Yes -Correct Procedure Yes -Procedure Performed Yes -Type of Procedure Debridement -Clinical Debridement Subcutaneous -Post Debridement Size (cm) - Length 1.7 -Post Debridement Size (cm) - Width 1.6 -Post Debridement Size (cm) - Depth 0.2 -Total Square Cm 2.72 -Wound/Ulcer Outcome Not Healed -Ulcer Cleansing Rinsed/ Irrigated with Saline -Foul Odor after Cleansing No -Type of bioengineered Tissue [id number] -Expiration Date 09/12/20 -Product Lot Number [id number] -Percent Used 100 -Saline Lot Number [id number] -Injectable Lidocaine (%) 4 -Bleeding Controlled with Pressure -Treatment Response Procedure Tolerated Well [See Physician Procedure note for Specifics] Pain Scale: 0-10 Numeric [Pain] -Is Patient Pain Free? Yes Musculoskeletal: No Tenderness to Palpation of Joints or Extremities Neurological: Sensory exam intact to light touch and pain Psych/Mental Status: Normal Affect, Appropriate Debridement Note Post-Debridement Measurements/Treatment WC - Nurse 2 - General Ulcer CM Notes Start: 06/15/18 09:37 Freq: Status: Active Protocol: Activity Type Activity Date Activity User E-Sign Co-Sign Detail Recorded Client Recorded Date Recorded By Document 06/15/18 10:03 MW [id number] 06/15/18 10:12 MW Document 06/22/18 09:02 MW [id number] 06/22/18 09:09 MW Document 06/28/18 08:50 DV [id number] 06/28/18 08:59 DV 06/15/18 06/22/18 06/28/18 10:03 09:02 08:50 Wound Center Nurse 2 #1- RT LAT LE -Time 10:06 09:03 08:52 -Correct Patient Yes Yes Yes -Correct Side, Site, Position Yes Yes Yes -Correct Procedure Yes Yes Yes -Procedure Performed Yes Yes Yes -Type of Procedure Debridement Debridement Debridement -Clinical Debridement Subcutaneous Subcutaneous Subcutaneous -Post Debridement Size (cm) - Length 1.9 1.8 1.7 -Post Debridement Size (cm) - Width 1.7 1.5 1.6 -Post Debridement Size (cm) - Depth 0.2 0.2 0.2 -Total Square Cm 3.23 2.70 2.72 -Wound/Ulcer Outcome Not Healed Not Healed Not Healed -Ulcer Cleansing Rinsed/ Rinsed/ Rinsed/ Irrigated with Irrigated with Irrigated with Saline Saline Saline -Foul Odor after Cleansing No No No -Bioengineered Tissue Yes Yes -Type of bioengineered Tissue [id number] -Expiration Date 09/12/20 12/10/19 09/12/20 -Product Lot Number [id number] -Percent Used 100 100 100 -Saline Lot Number [id number] -Injectable Lidocaine (%) 4 -Bleeding Controlled with Pressure Pressure Pressure -Treatment Response Procedure Procedure Procedure Tolerated Well Tolerated Well Tolerated Well Pain Scale: 0-10 Numeric Is Patient Pain Free? Yes Yes Yes Wound debrided: Right lateral lower leg Laterality: Right Type of Debridement: Excisional debridement Anesthesia Used: 4% Lidocaine Solution Depth: Down to and including healthy tissue, in the subcutaneous layer Percentage of wound debrided: 100 Instrument Used: 7mm curette Tissue Removed: Adherent slough, fibrin Severity: Fat Layer Exposed Amount of bleeding with debridement: Mild Bleeding Controlled with: Pressure Patient tolerated procedure well Assessment/Plan Active Problems Lumbar spine tumor (Acute) Neuropathy of right lower extremity (Acute) Obesity (BMI 30-39.9) (Acute) Bilateral lower extremity edema (Acute) Nonhealing nonsurgical wound limited to breakdown of skin (Acute) Ulcer of right lower extremity with fat layer exposed (Acute) Assessment: Right lateral lower leg wound nonhealing. Right lower leg edema. Peripheral neuropathy. Tumor on spine Plan: Patient was seen as a courtesy visit today. Wash area with Hibiclens. A subcutaneous debridement was performed as noted in the clinical panel. #3 puraply applied to right lower leg dressing intact patient to leave alone until next week at follow-up. Patient was having trouble applying Sid wraps properly, and was dispensed Tubigrip's today for compression. Patient to keep pressure off of area. Follow-up 1 week, but is to call sooner if any issues or problems arise.
[2018-07-06 08:40] VITALS: BP 165/86; PULSE 64; RESP 18; TEMP 36.9
--- NOTE | 2018-07-06 10:04 | PCM.WC.PN ---
(1) Bilateral lower extremity edema Status: Acute Current Visit: Yes Code(s): R60.0 - Localized edema (2) Lumbar spine tumor Status: Acute Current Visit: Yes Code(s): D49.2 - Neoplasm of unspecified behavior of bone, soft tissue, and skin (3) Neuropathy of right lower extremity Status: Acute Current Visit: Yes Code(s): G57.91 - Unspecified mononeuropathy of right lower limb (4) Nonhealing nonsurgical wound limited to breakdown of skin Status: Acute Current Visit: Yes Code(s): T14.8XXA - Other injury of unspecified body region, initial encounter (5) Obesity (BMI 30-39.9) Status: Acute Current Visit: Yes Code(s): E66.9 - Obesity, unspecified Type of Wound Chief Complaint: Right lateral lower leg ulcer and healing History of Wound: 57-year-old white male who walks with a walker and is 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 Came here because he kicked the door with his right leg in January and still not healing. The areas about the size of a quarter. He has been using Silvadene and has been on several antibiotics with his for physician. Patient was referred to us for further care Progress of Wound: Slow improvement noted. Wound is more shallow puraply #4 applied today. The wound is smaller and starting to grow new cells. No redness no increased swelling. - Physical Exam Vital Signs Temp Pulse Resp BP 98.4 F 64 18 165/86 H 07/06/18 08:40 07/06/18 08:40 07/06/18 08:40 07/06/18 08:40 General: Oriented x3, Cooperative, Well developed HEENT: Atraumatic, PERRLA Oral: Moist Mucosa Neck: Supple, No JVD Lungs: Clear to auscultation, Normal air movement Cardiovascular: Regular rate, Regular Rhythm Abdomen: Bowel Sounds Present, Soft, Non Tender, No Hepato-splenomegaly Extremities: No clubbing, No edema, - - Right lateral lower leg wound Wound Measurements and Assessment WC - Nurse 1 - General Ulcer Measurement Start: 06/15/18 09:37 Freq: Status: Active Protocol: Activity Type Activity Date Activity User E-Sign Co-Sign Detail Recorded Client Recorded Date Recorded By Document 07/06/18 08:40 [id number] 07/06/18 08:44 07/06/18 08:40 Wound Center Nurse 1 [Ulcer Assessment] #1- RT LAT LE -Combined with other wound No -Current Size (cm) - Length 1.4 -Current Size (cm) - Width 1.5 -Current Size (cm) - Depth 0.1 -Total Square Cm 2.10 -Photo Taken No -Epithelialization None Present -Tunneling No -Undermining/Tunneling No -Circular Undermining No -Exudate Amt Small (1-33%) -Exudate Type Yellow/Green -Wound Margin Distinct, Outline Attached -Granulation Amt Small (1-33%) -Granulation Quality Pale [facility] -Slough/Fibrin Yes -Necrosis Amt Medium (34-66%) -Necrotic Tissue Type Adherent Slough -Texture (Deisi-wound Skin Appearance) Assessed Scarring -Moisture (Deisi-wound Skin Appearance Assessed ) Dry/Scaly -Color (Deisi-wound Skin Appearance) Assessed Hemosiderin Staining -Temperature (Deisi-wound Skin No Abnormality Appearance) (Pt Warm) -Tenderness on Palpation (Deisi-wound No Skin Appearance) -Ulcer Cleansing Rinsed/ Irrigated with Saline -Foul Odor after Cleansing No -Anesthetic Used 4% Lidocaine Solution [Edema Assessment] -Right Calf (cm) 54 -Right Ankle (cm) 33 WC - Nurse 2 - General Ulcer CM Notes Start: 06/15/18 09:37 Freq: Status: Active Protocol: Activity Type Activity Date Activity User E-Sign Co-Sign Detail Recorded Client Recorded Date Recorded By Document 07/06/18 09:09 [id number] 07/06/18 09:13 MW 07/06/18 09:09 Wound Center Nurse 2 [Procedure/Treatment] #1- RT LAT LE -Time 09:11 -Correct Patient Yes -Correct Side, Site, Position Yes -Correct Procedure Yes -Procedure Performed Yes -Type of Procedure Debridement -Clinical Debridement Subcutaneous -Post Debridement Size (cm) - Length 1.4 -Post Debridement Size (cm) - Width 1.7 -Post Debridement Size (cm) - Depth 0.2 -Total Square Cm 2.38 -Wound/Ulcer Outcome Not Healed -Ulcer Cleansing Rinsed/ Irrigated with Saline -Foul Odor after Cleansing No -Bioengineered Tissue Yes -Type of bioengineered Tissue [id number] -Expiration Date 09/12/20 -Product Lot Number [id number] -Percent Used 100 -Saline Lot Number [id number] -Bleeding Controlled with Pressure -Treatment Response Procedure Tolerated Well [See Physician Procedure note for Specifics] Pain Scale: 0-10 Numeric [Pain] -Is Patient Pain Free? Yes Musculoskeletal: No Tenderness to Palpation of Joints or Extremities Lymphatic: No Cervical, Supraclavicular, or Inguinal Adenopathy Neurological: Cranial nerves II-XII grossly intact, Neuro grossly intact Psych/Mental Status: Normal Affect, Appropriate Debridement Note Post-Debridement Measurements/Treatment WC - Nurse 2 - General Ulcer CM Notes Start: 06/15/18 09:37 Freq: Status: Active Protocol: Activity Type Activity Date Activity User E-Sign Co-Sign Detail Recorded Client Recorded Date Recorded By Document 06/15/18 10:03 MW [id number] 06/15/18 10:12 MW Document 06/22/18 09:02 MW [id number] 06/22/18 09:09 MW Document 06/28/18 08:50 DV [id number] 06/28/18 08:59 DV Document 07/06/18 09:09 MW [id number] 07/06/18 09:13 MW 06/15/18 06/22/18 06/28/18 10:03 09:02 08:50 Wound Center Nurse 2 #1- RT LAT LE -Time 10:06 09:03 08:52 -Correct Patient Yes Yes Yes -Correct Side, Site, Position Yes Yes Yes -Correct Procedure Yes Yes Yes -Procedure Performed Yes Yes Yes -Type of Procedure Debridement Debridement Debridement -Clinical Debridement Subcutaneous Subcutaneous Subcutaneous -Post Debridement Size (cm) - Length 1.9 1.8 1.7 -Post Debridement Size (cm) - Width 1.7 1.5 1.6 -Post Debridement Size (cm) - Depth 0.2 0.2 0.2 -Total Square Cm 3.23 2.70 2.72 -Wound/Ulcer Outcome Not Healed Not Healed Not Healed -Ulcer Cleansing Rinsed/ Rinsed/ Rinsed/ Irrigated with Irrigated with Irrigated with Saline Saline Saline -Foul Odor after Cleansing No No No -Bioengineered Tissue Yes Yes -Type of bioengineered Tissue [id number] -Expiration Date 09/12/20 12/10/19 09/12/20 -Product Lot Number [id number] -Percent Used 100 100 100 -Saline Lot Number [id number] -Injectable Lidocaine (%) 4 -Bleeding Controlled with Pressure Pressure Pressure -Treatment Response Procedure Procedure Procedure Tolerated Well Tolerated Well Tolerated Well Pain Scale: 0-10 Numeric Is Patient Pain Free? Yes Yes Yes 07/06/18 09:09 Wound Center Nurse 2 #1- RT LAT LE -Time 09:11 -Correct Patient Yes -Correct Side, Site, Position Yes -Correct Procedure Yes -Procedure Performed Yes -Type of Procedure Debridement -Clinical Debridement Subcutaneous -Post Debridement Size (cm) - Length 1.4 -Post Debridement Size (cm) - Width 1.7 -Post Debridement Size (cm) - Depth 0.2 -Total Square Cm 2.38 -Wound/Ulcer Outcome Not Healed -Ulcer Cleansing Rinsed/ Irrigated with Saline -Foul Odor after Cleansing No -Bioengineered Tissue Yes -Type of bioengineered Tissue beModel -Expiration Date 09/12/20 -Product Lot Number [id number] -Percent Used 100 -Saline Lot Number [id number] -Injectable Lidocaine (%) -Bleeding Controlled with Pressure -Treatment Response Procedure Tolerated Well Pain Scale: 0-10 Numeric Is Patient Pain Free? Yes Wound debrided: Right lateral lower leg wound Type of Debridement: Excisional debridement Anesthesia Used: 5% Lidocaine Gel Depth: Down to and including healthy tissue Percentage of wound debrided: 100 Instrument Used: 7mm curette Tissue Removed: Fibrin Severity: Limited To Skin Breakdown Amount of bleeding with debridement: Mild Bleeding Controlled with: Compression and gauze Patient tolerated procedure well Assessment/Plan Active Problems Lumbar spine tumor (Acute) Neuropathy of right lower extremity (Acute) Obesity (BMI 30-39.9) (Acute) Bilateral lower extremity edema (Acute) Nonhealing nonsurgical wound limited to breakdown of skin (Acute) Ulcer of right lower extremity with fat layer exposed (Acute) Assessment: Right lateral lower leg wound nonhealing. Right lower leg edema. Peripheral neuropathy. Tumor on spine Plan: Wash area with Hibiclens. A subcutaneous debridement was performed as noted in the clinical panel. #4 puraply applied to right lower leg dressing intact patient to leave alone until next week at follow-up. Continue Sid wraps 4 inch on the foot and six-inch on the leg. Patient to keep pressure off of area. Follow-up 1 week, but is to call sooner if any issues or problems arise.
--- NOTE | 2018-07-06 10:07 | PN.PCM_ITS ---
(1) Bilateral lower extremity edema Status: Acute Current Visit: Yes Code(s): R60.0 - Localized edema (2) Lumbar spine tumor Status: Acute Current Visit: Yes Code(s): D49.2 - Neoplasm of unspecified behavior of bone, soft tissue, and skin (3) Neuropathy of right lower extremity Status: Acute Current Visit: Yes Code(s): G57.91 - Unspecified mononeuropathy of right lower limb (4) Nonhealing nonsurgical wound limited to breakdown of skin Status: Acute Current Visit: Yes Code(s): T14.8XXA - Other injury of unspecified body region, initial encounter (5) Obesity (BMI 30-39.9) Status: Acute Current Visit: Yes Code(s): E66.9 - Obesity, unspecified Type of Wound Chief Complaint: Right lateral lower leg ulcer and healing History of Wound: 57-year-old white male who walks with a walker and is 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 Came here because he kicked the door with his right leg in January and still not healing. The areas about the size of a quarter. He has been using Silvadene and has been on several antibiotics with his for physician. Patient was referred to us for further care Progress of Wound: Slow improvement noted. Wound is more shallow puraply #4 applied today. The wound is smaller and starting to grow new cells. No redness no increased swelling. - Physical Exam Vital Signs Temp Pulse Resp BP 98.4 F 64 18 165/86 H 07/06/18 08:40 07/06/18 08:40 07/06/18 08:40 07/06/18 08:40 General: Oriented x3, Cooperative, Well developed HEENT: Atraumatic, PERRLA Oral: Moist Mucosa Neck: Supple, No JVD Lungs: Clear to auscultation, Normal air movement Cardiovascular: Regular rate, Regular Rhythm Abdomen: Bowel Sounds Present, Soft, Non Tender, No Hepato-splenomegaly Extremities: No clubbing, No edema, - - Right lateral lower leg wound Wound Measurements and Assessment WC - Nurse 1 - General Ulcer Measurement Start: 06/15/18 09:37 Freq: Status: Active Protocol: Activity Type Activity Date Activity User E-Sign Co-Sign Detail Recorded Client Recorded Date Recorded By Document 07/06/18 08:40 [id number] 07/06/18 08:44 07/06/18 08:40 Wound Center Nurse 1 [Ulcer Assessment] #1- RT LAT LE -Combined with other wound No -Current Size (cm) - Length 1.4 -Current Size (cm) - Width 1.5 -Current Size (cm) - Depth 0.1 -Total Square Cm 2.10 -Photo Taken No -Epithelialization None Present -Tunneling No -Undermining/Tunneling No -Circular Undermining No -Exudate Amt Small (1-33%) -Exudate Type Yellow/Green -Wound Margin Distinct, Outline Attached -Granulation Amt Small (1-33%) -Granulation Quality Pale [place] -Slough/Fibrin Yes -Necrosis Amt Medium (34-66%) -Necrotic Tissue Type Adherent Slough -Texture (Deisi-wound Skin Appearance) Assessed Scarring -Moisture (Deisi-wound Skin Appearance Assessed ) Dry/Scaly -Color (Deisi-wound Skin Appearance) Assessed Hemosiderin Staining -Temperature (Deisi-wound Skin No Abnormality Appearance) (Pt Warm) -Tenderness on Palpation (Deisi-wound No Skin Appearance) -Ulcer Cleansing Rinsed/ Irrigated with Saline -Foul Odor after Cleansing No -Anesthetic Used 4% Lidocaine Solution [Edema Assessment] -Right Calf (cm) 54 -Right Ankle (cm) 33 WC - Nurse 2 - General Ulcer CM Notes Start: 06/15/18 09:37 Freq: Status: Active Protocol: Activity Type Activity Date Activity User E-Sign Co-Sign Detail Recorded Client Recorded Date Recorded By Document 07/06/18 09:09 [id number] 07/06/18 09:13 MW 07/06/18 09:09 Wound Center Nurse 2 [Procedure/Treatment] #1- RT LAT LE -Time 09:11 -Correct Patient Yes -Correct Side, Site, Position Yes -Correct Procedure Yes -Procedure Performed Yes -Type of Procedure Debridement -Clinical Debridement Subcutaneous -Post Debridement Size (cm) - Length 1.4 -Post Debridement Size (cm) - Width 1.7 -Post Debridement Size (cm) - Depth 0.2 -Total Square Cm 2.38 -Wound/Ulcer Outcome Not Healed -Ulcer Cleansing Rinsed/ Irrigated with Saline -Foul Odor after Cleansing No -Bioengineered Tissue Yes -Type of bioengineered Tissue [id number] -Expiration Date 09/12/20 -Product Lot Number [id number] -Percent Used 100 -Saline Lot Number [id number] -Bleeding Controlled with Pressure -Treatment Response Procedure Tolerated Well [See Physician Procedure note for Specifics] Pain Scale: 0-10 Numeric [Pain] -Is Patient Pain Free? Yes Musculoskeletal: No Tenderness to Palpation of Joints or Extremities Lymphatic: No Cervical, Supraclavicular, or Inguinal Adenopathy Neurological: Cranial nerves II-XII grossly intact, Neuro grossly intact Psych/Mental Status: Normal Affect, Appropriate Debridement Note Post-Debridement Measurements/Treatment WC - Nurse 2 - General Ulcer CM Notes Start: 06/15/18 09:37 Freq: Status: Active Protocol: Activity Type Activity Date Activity User E-Sign Co-Sign Detail Recorded Client Recorded Date Recorded By Document 06/15/18 10:03 MW [id number] 06/15/18 10:12 MW Document 06/22/18 09:02 MW [id number] 06/22/18 09:09 MW Document 06/28/18 08:50 DV [id number] 06/28/18 08:59 DV Document 07/06/18 09:09 MW [id number] 07/06/18 09:13 MW 06/15/18 06/22/18 06/28/18 10:03 09:02 08:50 Wound Center Nurse 2 #1- RT LAT LE -Time 10:06 09:03 08:52 -Correct Patient Yes Yes Yes -Correct Side, Site, Position Yes Yes Yes -Correct Procedure Yes Yes Yes -Procedure Performed Yes Yes Yes -Type of Procedure Debridement Debridement Debridement -Clinical Debridement Subcutaneous Subcutaneous Subcutaneous -Post Debridement Size (cm) - Length 1.9 1.8 1.7 -Post Debridement Size (cm) - Width 1.7 1.5 1.6 -Post Debridement Size (cm) - Depth 0.2 0.2 0.2 -Total Square Cm 3.23 2.70 2.72 -Wound/Ulcer Outcome Not Healed Not Healed Not Healed -Ulcer Cleansing Rinsed/ Rinsed/ Rinsed/ Irrigated with Irrigated with Irrigated with Saline Saline Saline -Foul Odor after Cleansing No No No -Bioengineered Tissue Yes Yes -Type of bioengineered Tissue [id number] -Expiration Date 09/12/20 12/10/19 09/12/20 -Product Lot Number [id number] -Percent Used 100 100 100 -Saline Lot Number [id number] -Injectable Lidocaine (%) 4 -Bleeding Controlled with Pressure Pressure Pressure -Treatment Response Procedure Procedure Procedure Tolerated Well Tolerated Well Tolerated Well Pain Scale: 0-10 Numeric Is Patient Pain Free? Yes Yes Yes 07/06/18 09:09 Wound Center Nurse 2 #1- RT LAT LE -Time 09:11 -Correct Patient Yes -Correct Side, Site, Position Yes -Correct Procedure Yes -Procedure Performed Yes -Type of Procedure Debridement -Clinical Debridement Subcutaneous -Post Debridement Size (cm) - Length 1.4 -Post Debridement Size (cm) - Width 1.7 -Post Debridement Size (cm) - Depth 0.2 -Total Square Cm 2.38 -Wound/Ulcer Outcome Not Healed -Ulcer Cleansing Rinsed/ Irrigated with Saline -Foul Odor after Cleansing No -Bioengineered Tissue Yes -Type of bioengineered Tissue appCREAR -Expiration Date 09/12/20 -Product Lot Number [id number] -Percent Used 100 -Saline Lot Number [id number] -Injectable Lidocaine (%) -Bleeding Controlled with Pressure -Treatment Response Procedure Tolerated Well Pain Scale: 0-10 Numeric Is Patient Pain Free? Yes Wound debrided: Right lateral lower leg wound Type of Debridement: Excisional debridement Anesthesia Used: 5% Lidocaine Gel Depth: Down to and including healthy tissue Percentage of wound debrided: 100 Instrument Used: 7mm curette Tissue Removed: Fibrin Severity: Limited To Skin Breakdown Amount of bleeding with debridement: Mild Bleeding Controlled with: Compression and gauze Patient tolerated procedure well Assessment/Plan Active Problems Lumbar spine tumor (Acute) Neuropathy of right lower extremity (Acute) Obesity (BMI 30-39.9) (Acute) Bilateral lower extremity edema (Acute) Nonhealing nonsurgical wound limited to breakdown of skin (Acute) Ulcer of right lower extremity with fat layer exposed (Acute) Assessment: Right lateral lower leg wound nonhealing. Right lower leg edema. Peripheral neuropathy. Tumor on spine Plan: Wash area with Hibiclens. A subcutaneous debridement was performed as noted in the clinical panel. #4 puraply applied to right lower leg dressing intact patient to leave alone until next week at follow-up. Continue Sid wraps 4 inch on the foot and six-inch on the leg. Patient to keep pressure off of area. Follow-up 1 week, but is to call sooner if any issues or problems arise.
== END 2018-07-11 23:59 ==
LOC: WC 08:30
PROVIDERS: Family Provider Family Medicine; PCP Family Medicine; Referring Provider Nurse Practitioner; Visit Provider Nurse Practitioner
DX: L97.811 Non-pressure chronic ulcer of other part of right lower leg limited to breakdown of skin (principal); L97.812 Non-pressure chronic ulcer of other part of right lower leg with fat layer exposed; R60.0 Localized edema; D49.2 Neoplasm of unspecified behavior of bone, soft tissue, and skin; E66.9 Obesity, unspecified; Z71.3 Dietary counseling and surveillance; G62.9 Polyneuropathy, unspecified
CPT/HCPCS: 11042; 15271; Q4172

== ENCOUNTER 2018-08-10 09:00 | Outpatient (RCR) | payer MEDICARE, SELFPAY ==
[2018-07-12 01:19] VITALS: BP 165/86; PULSE 64; RESP 18; TEMP 36.9
[2018-07-13 08:26] VITALS: PULSE 68; RESP 18; TEMP 36.8
--- NOTE | 2018-07-13 09:04 | PN.PCM_ITS ---
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 Current Visit: Yes Code(s): G57.91 - Unspecified mononeuropathy of right lower limb (4) Nonhealing nonsurgical wound limited to breakdown of skin Status: Acute Current Visit: Yes Code(s): T14.8XXA - Other injury of unspecified body region, initial encounter (5) Obesity (BMI 30-39.9) Status: Chronic Current Visit: Yes Code(s): E66.9 - Obesity, unspecified (6) Ulcer of right lower extremity with fat layer exposed Status: Acute Current Visit: Yes Code(s): L97.912 - Non-pressure chronic ulcer of unspecified part of right lower leg with fat layer exposed Type of Wound Chief Complaint: Right lateral lower leg ulcer and healing History of Wound: 57-year-old white male who walks with a walker and is 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 Came here because he kicked the door with his right leg in January and still not healing. The areas about the size of a quarter. He has been using Silvadene and has been on several antibiotics with his for physician. Patient was referred to us for further care Progress of Wound: Slow improvement noted. Wound is more shallow puraply #5 applied today. The wound is smaller and starting to grow new cells. No redness no increased swelling. - Physical Exam Vital Signs Temp Pulse Resp BP 98.2 F 68 18 165/86 H 07/13/18 08:26 07/13/18 08:26 07/13/18 08:26 07/12/18 01:19 General: Oriented x3, Cooperative, Well developed HEENT: Atraumatic, PERRLA Oral: Moist Mucosa Neck: Supple, No JVD Lungs: Clear to auscultation, Normal air movement Cardiovascular: Regular rate, Regular Rhythm Abdomen: Bowel Sounds Present, Soft, Non Tender, No Hepato-splenomegaly Extremities: No clubbing, No edema Skin: Ulcer/ Wound - Right lower leg wound Wound Measurements and Assessment WC - Nurse 1 - General Ulcer Measurement Start: 07/13/18 08:25 Freq: Status: Active Protocol: Activity Type Activity Date Activity User E-Sign Co-Sign Detail Recorded Client Recorded Date Recorded By Document 07/13/18 08:26 [id number] 07/13/18 08:34 07/13/18 08:26 Wound Center Nurse 1 [Ulcer Assessment] #1- RT LAT LE -Combined with other wound No -Current Size (cm) - Length 1.2 -Current Size (cm) - Width 1.8 -Current Size (cm) - Depth 0 -Total Square Cm 2.16 -Photo Taken No -Epithelialization Medium 34-66% -Tunneling No -Undermining/Tunneling No -Circular Undermining No -Exudate Amt Medium (34-66%) -Exudate Type Yellow/Green -Wound Margin Distinct, Outline Attached -Granulation Amt Large (67-100%) -Granulation Quality Red -Slough/Fibrin Yes -Necrosis Amt Small (1-33%) -Necrotic Tissue Type Adherent Slough -Texture (Deisi-wound Skin Appearance) Assessed Scarring -Moisture (Deisi-wound Skin Appearance Assessed ) Maceration Dry/Scaly -Color (Deisi-wound Skin Appearance) No Abnormality Assessed -Temperature (Deisi-wound Skin No Abnormality Appearance) (Pt Warm) -Tenderness on Palpation (Deisi-wound No Skin Appearance) -Ulcer Cleansing Rinsed/ Irrigated with Saline -Foul Odor after Cleansing No -Anesthetic Used 4% Lidocaine Solution [Edema Assessment] -Right Calf (cm) 53 -Right Ankle (cm) 32 WC - Nurse 2 - General Ulcer CM Notes Start: 07/13/18 08:25 Freq: Status: Active Protocol: Activity Type Activity Date Activity User E-Sign Co-Sign Detail Recorded Client Recorded Date Recorded By Document 07/13/18 08:49 MW [id number] 07/13/18 08:51 MW 07/13/18 08:49 Wound Center Nurse 2 [Procedure/Treatment] #1- RT LAT LE -Time 08:50 -Correct Patient Yes -Correct Side, Site, Position Yes -Correct Procedure Yes -Procedure Performed Yes -Type of Procedure Debridement -Clinical Debridement Subcutaneous -Post Debridement Size (cm) - Length 1.5 -Post Debridement Size (cm) - Width 1.6 -Post Debridement Size (cm) - Depth 0.2 -Total Square Cm 2.40 -Wound/Ulcer Outcome Not Healed -Ulcer Cleansing Rinsed/ Irrigated with Saline -Foul Odor after Cleansing No -Bioengineered Tissue No -Bleeding Controlled with Pressure -Treatment Response Procedure Tolerated Well [See Physician Procedure note for Specifics] Pain Scale: 0-10 Numeric [Pain] -Is Patient Pain Free? Yes Musculoskeletal: No Tenderness to Palpation of Joints or Extremities Lymphatic: No Cervical, Supraclavicular, or Inguinal Adenopathy Neurological: Cranial nerves II-XII grossly intact, Neuro grossly intact Psych/Mental Status: Normal Affect, Appropriate, Alert and oriented to time, place, person, mood and affect Debridement Note Post-Debridement Measurements/Treatment WC - Nurse 2 - General Ulcer CM Notes Start: 07/13/18 08:25 Freq: Status: Active Protocol: Activity Type Activity Date Activity User E-Sign Co-Sign Detail Recorded Client Recorded Date Recorded By Document 07/13/18 08:49 MW [id number] 07/13/18 08:51 MW 07/13/18 08:49 Wound Center Nurse 2 #1- RT LAT LE -Time 08:50 -Correct Patient Yes -Correct Side, Site, Position Yes -Correct Procedure Yes -Procedure Performed Yes -Type of Procedure Debridement -Clinical Debridement Subcutaneous -Post Debridement Size (cm) - Length 1.5 -Post Debridement Size (cm) - Width 1.6 -Post Debridement Size (cm) - Depth 0.2 -Total Square Cm 2.40 -Wound/Ulcer Outcome Not Healed -Ulcer Cleansing Rinsed/ Irrigated with Saline -Foul Odor after Cleansing No -Bioengineered Tissue No -Bleeding Controlled with Pressure -Treatment Response Procedure Tolerated Well Pain Scale: 0-10 Numeric Is Patient Pain Free? Yes Wound debrided: Right lateral lower leg wound Type of Debridement: Excisional debridement Anesthesia Used: 5% Lidocaine Gel Depth: Down to and including healthy tissue, in the subcutaneous layer Percentage of wound debrided: 100 Instrument Used: 7mm curette Tissue Removed: Fibrin Severity: Limited To Skin Breakdown Amount of bleeding with debridement: None Bleeding Controlled with: Pressure Patient tolerated procedure well Assessment/Plan Active Problems Lumbar spine tumor (Chronic) Neuropathy of right lower extremity (Chronic) Obesity (BMI 30-39.9) (Chronic) Bilateral lower extremity edema (Chronic) Nonhealing nonsurgical wound limited to breakdown of skin (Acute) Ulcer of right lower extremity with fat layer exposed (Acute) Assessment: Right lateral lower leg wound nonhealing. Right lower leg edema. Peripheral neuropathy. Tumor on spine Plan: A subcutaneous debridement was performed as noted in the clinical panel. #5 puraply applied to right lower leg dressing intact patient to leave alone until next week at follow-up. Continue Sid wraps 4 inch on the foot and six- inch on the leg. Patient to keep pressure off of area. Follow-up 1 week, but is to call sooner if any issues or problems arise.
[2018-07-20 08:41] VITALS: BP 167/84; PULSE 64; RESP 16; TEMP 36.5
--- NOTE | 2018-07-20 09:03 | PN.PCM_ITS ---
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 Current Visit: Yes Code(s): G57.91 - Unspecified mononeuropathy of right lower limb (4) Nonhealing nonsurgical wound limited to breakdown of skin Status: Acute Current Visit: Yes Code(s): T14.8XXA - Other injury of unspecified body region, initial encounter (5) Obesity (BMI 30-39.9) Status: Chronic Current Visit: Yes Code(s): E66.9 - Obesity, unspecified (6) Ulcer of right lower extremity with fat layer exposed Status: Acute Current Visit: Yes Code(s): L97.912 - Non-pressure chronic ulcer of unspecified part of right lower leg with fat layer exposed Type of Wound Chief Complaint: Right lateral lower leg ulcer and healing History of Wound: 57-year-old white male who walks with a walker and is 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 Came here because he kicked the door with his right leg in January and still not healing. The areas about the size of a quarter. He has been using Silvadene and has been on several antibiotics with his for physician. Patient was referred to us for further care Progress of Wound: Slow improvement noted. Wound is more shallow puraply #6 applied today. The wound is smaller and starting to grow new cells. No redness no increased swelling. - Physical Exam Vital Signs Temp Pulse Resp BP 97.7 F L 64 16 167/84 H 07/20/18 08:41 07/20/18 08:41 07/20/18 08:41 07/20/18 08:41 General: Oriented x3, Cooperative, Well developed HEENT: Atraumatic, PERRLA Oral: Moist Mucosa Neck: Supple, No JVD Lungs: Clear to auscultation, Normal air movement Cardiovascular: Regular rate, Regular Rhythm Abdomen: Bowel Sounds Present, Soft, Non Tender, No Hepato-splenomegaly Extremities: No clubbing, No edema, - - Right lateral lower leg wound from trauma Wound Measurements and Assessment WC - Nurse 1 - General Ulcer Measurement Start: 07/13/18 08:25 Freq: Status: Active Protocol: Activity Type Activity Date Activity User E-Sign Co-Sign Detail Recorded Client Recorded Date Recorded By Document 07/20/18 08:41 CS [id number] 07/20/18 08:42 CS 07/20/18 08:41 Wound Center Nurse 1 [Ulcer Assessment] #1- RT LAT LE -Combined with other wound No -Current Size (cm) - Length 1.2 -Current Size (cm) - Width 1.8 -Current Size (cm) - Depth 0.1 -Total Square Cm 2.16 -Photo Taken No -Epithelialization Small 1-33% -Tunneling No -Undermining/Tunneling No -Circular Undermining No -Exudate Amt Medium (34-66%) -Exudate Type Yellow/Green -Wound Margin Distinct, Outline Attached -Granulation Amt Medium (34-66%) -Granulation Quality Red -Slough/Fibrin Yes -Necrosis Amt None Present (0 %) -Necrotic Tissue Type Adherent Slough -Structure Exposed None/Limited to Skin Breakdown -Texture (Deisi-wound Skin Appearance) Assessed Scarring -Moisture (Deisi-wound Skin Appearance No Abnormality ) Assessed -Color (Deisi-wound Skin Appearance) No Abnormality Assessed -Temperature (Deisi-wound Skin No Abnormality Appearance) (Pt Warm) -Tenderness on Palpation (Deisi-wound No Skin Appearance) -Ulcer Cleansing Rinsed/ Irrigated with Saline -Foul Odor after Cleansing No -Anesthetic Used 4% Lidocaine Solution [Edema Assessment] -Lower Limb Edema Present NA WC - Nurse 2 - General Ulcer CM Notes Start: 07/13/18 08:25 Freq: Status: Active Protocol: Activity Type Activity Date Activity User E-Sign Co-Sign Detail Recorded Client Recorded Date Recorded By Document 07/20/18 08:50 MW [id number] 07/20/18 08:54 MW 07/20/18 08:50 Wound Center Nurse 2 [Procedure/Treatment] #1- RT LAT LE -Time 08:50 -Correct Patient Yes -Correct Side, Site, Position Yes -Correct Procedure Yes -Procedure Performed Yes -Type of Procedure Debridement -Clinical Debridement Subcutaneous -Post Debridement Size (cm) - Length 1.3 -Post Debridement Size (cm) - Width 1.5 -Post Debridement Size (cm) - Depth 0.1 -Total Square Cm 1.95 -Wound/Ulcer Outcome Not Healed -Ulcer Cleansing Rinsed/ Irrigated with Saline -Foul Odor after Cleansing No -Bioengineered Tissue Yes -Type of bioengineered Tissue [id number] -Expiration Date 11/08/20 -Product Lot Number [id number] -Percent Used 100 -Saline Lot Number [id number] -Bleeding Controlled with Pressure -Treatment Response Procedure Tolerated Well [See Physician Procedure note for Specifics] Pain Scale: 0-10 Numeric [Pain] -Is Patient Pain Free? Yes Musculoskeletal: No Tenderness to Palpation of Joints or Extremities Lymphatic: No Cervical, Supraclavicular, or Inguinal Adenopathy Neurological: Cranial nerves II-XII grossly intact, Neuro grossly intact Psych/Mental Status: Normal Affect, Appropriate Debridement Note Post-Debridement Measurements/Treatment WC - Nurse 2 - General Ulcer CM Notes Start: 07/13/18 08:25 Freq: Status: Active Protocol: Activity Type Activity Date Activity User E-Sign Co-Sign Detail Recorded Client Recorded Date Recorded By Document 07/13/18 08:49 MW [id number] 07/13/18 08:51 MW Document 07/20/18 08:50 MW [id number] 07/20/18 08:54 MW 07/13/18 07/20/18 08:49 08:50 Wound Center Nurse 2 #1- RT LAT LE -Time 08:50 08:50 -Correct Patient Yes Yes -Correct Side, Site, Position Yes Yes -Correct Procedure Yes Yes -Procedure Performed Yes Yes -Type of Procedure Debridement Debridement -Clinical Debridement Subcutaneous Subcutaneous -Post Debridement Size (cm) - Length 1.5 1.3 -Post Debridement Size (cm) - Width 1.6 1.5 -Post Debridement Size (cm) - Depth 0.2 0.1 -Total Square Cm 2.40 1.95 -Wound/Ulcer Outcome Not Healed Not Healed -Ulcer Cleansing Rinsed/ Rinsed/ Irrigated with Irrigated with Saline Saline -Foul Odor after Cleansing No No -Bioengineered Tissue No Yes -Type of bioengineered Tissue [id number] -Expiration Date 11/08/20 -Product Lot Number [id number] -Percent Used 100 -Saline Lot Number [id number] -Bleeding Controlled with Pressure Pressure -Treatment Response Procedure Procedure Tolerated Well Tolerated Well Pain Scale: 0-10 Numeric Is Patient Pain Free? Yes Yes Wound debrided: Right lateral lower leg wound Type of Debridement: Excisional debridement Anesthesia Used: 5% Lidocaine Gel Depth: Down to and including healthy tissue, in the subcutaneous layer Percentage of wound debrided: 100 Instrument Used: 3mm curette Tissue Removed: Fibrin Severity: Limited To Skin Breakdown Amount of bleeding with debridement: Mild Bleeding Controlled with: Pressure Patient tolerated procedure well Assessment/Plan Active Problems Lumbar spine tumor (Chronic) Neuropathy of right lower extremity (Chronic) Obesity (BMI 30-39.9) (Chronic) Bilateral lower extremity edema (Chronic) Nonhealing nonsurgical wound limited to breakdown of skin (Acute) Ulcer of right lower extremity with fat layer exposed (Acute) Assessment: Right lateral lower leg wound nonhealing. Right lower leg edema. Peripheral neuropathy. Tumor on spine Plan: A subcutaneous debridement was performed as noted in the clinical panel. #6 puraply applied to right lower leg dressing intact patient to leave alone until next week at follow-up. Continue Sid wraps 4 inch on the foot and six- inch on the leg. Patient to keep pressure off of area. Follow-up 1 week, but is to call sooner if any issues or problems arise.
[2018-07-27 08:44] VITALS: BP 159/96; PULSE 70; RESP 16; TEMP 36.4
--- NOTE | 2018-07-27 10:41 | PN.PCM_ITS ---
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 Current Visit: Yes Code(s): G57.91 - Unspecified mononeuropathy of right lower limb (4) Nonhealing nonsurgical wound limited to breakdown of skin Status: Acute Current Visit: Yes Code(s): T14.8XXA - Other injury of unspecified body region, initial encounter (5) Obesity (BMI 30-39.9) Status: Chronic Current Visit: Yes Code(s): E66.9 - Obesity, unspecified (6) Ulcer of right lower extremity with fat layer exposed Status: Acute Current Visit: Yes Code(s): L97.912 - Non-pressure chronic ulcer of unspecified part of right lower leg with fat layer exposed Type of Wound Chief Complaint: Right lateral lower leg ulcer and healing History of Wound: 57-year-old white male who walks with a walker and is 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 Came here because he kicked the door with his right leg in January and still not healing. The areas about the size of a quarter. He has been using Silvadene and has been on several antibiotics with his for physician. Patient was referred to us for further care Progress of Wound: Slow improvement noted. Wound is more shallow puraply #7 applied today. The wound is smaller and starting to grow new cells. No redness no increased swelling. Patient to follow-up in 2 weeks and should be healed. - Physical Exam Vital Signs Temp Pulse Resp BP 97.5 F L 70 16 159/96 H 07/27/18 08:44 07/27/18 08:44 07/27/18 08:44 07/27/18 08:44 General: Oriented x3, Cooperative, Well developed HEENT: Atraumatic, PERRLA Oral: Moist Mucosa Neck: Supple, No JVD Lungs: Clear to auscultation, Normal air movement Cardiovascular: Regular rate, Regular Rhythm Abdomen: Bowel Sounds Present, Soft, Non Tender, No Hepato-splenomegaly Extremities: No clubbing, No edema, - - Right lateral lower leg wound Skin: Ulcer/ Wound Wound Measurements and Assessment WC - Nurse 1 - General Ulcer Measurement Start: 07/13/18 08:25 Freq: Status: Active Protocol: Activity Type Activity Date Activity User E-Sign Co-Sign Detail Recorded Client Recorded Date Recorded By Document 07/27/18 08:44 DL [id number] 07/27/18 08:51 DL 07/27/18 08:44 Wound Center Nurse 1 [Ulcer Assessment] #1- RT LAT LE -Current Size (cm) - Length 1.5 -Current Size (cm) - Width 1.3 -Current Size (cm) - Depth 0.1 -Total Square Cm 1.95 -Photo Taken No -Exudate Amt Small (1-33%) -Exudate Type Serosanguineous -Wound Margin Distinct, Outline Attached -Granulation Amt Large (67-100%) -Granulation Quality Red -Necrosis Amt Small (1-33%) -Necrotic Tissue Type Adherent Slough -Structure Exposed N/A -Texture (Deisi-wound Skin Appearance) Scarring -Moisture (Deisi-wound Skin Appearance Maceration ) -Color (Deisi-wound Skin Appearance) Hemosiderin Staining -Temperature (Deisi-wound Skin No Abnormality Appearance) (Pt Warm) -Ulcer Cleansing Wound Cleanser -Foul Odor after Cleansing No -Anesthetic Used 4% Lidocaine Solution [Edema Assessment] -Right Calf (cm) 51 -Right Ankle (cm) 30 WC - Nurse 2 - General Ulcer CM Notes Start: 07/13/18 08:25 Freq: Status: Active Protocol: Activity Type Activity Date Activity User E-Sign Co-Sign Detail Recorded Client Recorded Date Recorded By Document 07/27/18 09:41 MW [id number] 07/27/18 09:43 MW 07/27/18 09:41 Wound Center Nurse 2 [Procedure/Treatment] #1- RT LAT LE -Time 09:41 -Correct Patient Yes -Correct Side, Site, Position Yes -Correct Procedure Yes -Procedure Performed Yes -Type of Procedure Debridement -Clinical Debridement Subcutaneous -Post Debridement Size (cm) - Length 1.1 -Post Debridement Size (cm) - Width 1.2 -Post Debridement Size (cm) - Depth 0.1 -Total Square Cm 1.32 -Wound/Ulcer Outcome Not Healed -Ulcer Cleansing Rinsed/ Irrigated with Saline -Foul Odor after Cleansing No -Bioengineered Tissue Yes -Type of bioengineered Tissue [id number] -Expiration Date 11/14/20 -Product Lot Number [id number] -Percent Used 100 -Bleeding Controlled with Pressure -Treatment Response Procedure Tolerated Well [See Physician Procedure note for Specifics] Pain Scale: 0-10 Numeric [Pain] -Is Patient Pain Free? Yes Musculoskeletal: No Tenderness to Palpation of Joints or Extremities Lymphatic: No Cervical, Supraclavicular, or Inguinal Adenopathy Neurological: Cranial nerves II-XII grossly intact, Neuro grossly intact Psych/Mental Status: Normal Affect, Appropriate Debridement Note Post-Debridement Measurements/Treatment WC - Nurse 2 - General Ulcer CM Notes Start: 07/13/18 08:25 Freq: Status: Active Protocol: Activity Type Activity Date Activity User E-Sign Co-Sign Detail Recorded Client Recorded Date Recorded By Document 07/13/18 08:49 MW [id number] 07/13/18 08:51 MW Document 07/20/18 08:50 MW [id number] 07/20/18 08:54 MW Document 07/27/18 09:41 MW [id number] 07/27/18 09:43 MW 07/13/18 07/20/18 07/27/18 08:49 08:50 09:41 Wound Center Nurse 2 #1- RT LAT LE -Time 08:50 08:50 09:41 -Correct Patient Yes Yes Yes -Correct Side, Site, Position Yes Yes Yes -Correct Procedure Yes Yes Yes -Procedure Performed Yes Yes Yes -Type of Procedure Debridement Debridement Debridement -Clinical Debridement Subcutaneous Subcutaneous Subcutaneous -Post Debridement Size (cm) - Length 1.5 1.3 1.1 -Post Debridement Size (cm) - Width 1.6 1.5 1.2 -Post Debridement Size (cm) - Depth 0.2 0.1 0.1 -Total Square Cm 2.40 1.95 1.32 -Wound/Ulcer Outcome Not Healed Not Healed Not Healed -Ulcer Cleansing Rinsed/ Rinsed/ Rinsed/ Irrigated with Irrigated with Irrigated with Saline Saline Saline -Foul Odor after Cleansing No No No -Bioengineered Tissue No Yes Yes -Type of bioengineered Tissue [id number] -Expiration Date 11/08/20 11/14/20 -Product Lot Number [id number] -Percent Used 100 100 -Saline Lot Number [id number] -Bleeding Controlled with Pressure Pressure Pressure -Treatment Response Procedure Procedure Procedure Tolerated Well Tolerated Well Tolerated Well Pain Scale: 0-10 Numeric Is Patient Pain Free? Yes Yes Yes Wound debrided: Right lateral lower leg wound Type of Debridement: Excisional debridement Anesthesia Used: 5% Lidocaine Gel Depth: Down to and including healthy tissue Percentage of wound debrided: 100 Instrument Used: 7mm curette Tissue Removed: Fibrin Severity: Limited To Skin Breakdown Amount of bleeding with debridement: None Bleeding Controlled with: Pressure Patient tolerated procedure well Assessment/Plan Active Problems Lumbar spine tumor (Chronic) Neuropathy of right lower extremity (Chronic) Obesity (BMI 30-39.9) (Chronic) Bilateral lower extremity edema (Chronic) Nonhealing nonsurgical wound limited to breakdown of skin (Acute) Ulcer of right lower extremity with fat layer exposed (Acute) Assessment: Right lateral lower leg wound nonhealing. Right lower leg edema. Peripheral neuropathy. Tumor on spine Plan: A subcutaneous debridement was performed as noted in the clinical panel. #7 puraply applied to right lower leg dressing intact patient to leave alone until next 2 week at follow-up. Continue Sid wraps 4 inch on the foot and six- inch on the leg. Patient to keep pressure off of area. Follow-up 1 week, but is to call sooner if any issues or problems arise.
[2018-08-10 09:28] VITALS: BP 170/86; PULSE 57; RESP 18; TEMP 36.8
--- NOTE | 2018-08-10 11:09 | PCM.WC.PN ---
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 Current Visit: Yes Code(s): G57.91 - Unspecified mononeuropathy of right lower limb (4) Nonhealing nonsurgical wound limited to breakdown of skin Status: Acute Current Visit: Yes Code(s): T14.8XXA - Other injury of unspecified body region, initial encounter (5) Obesity (BMI 30-39.9) Status: Chronic Current Visit: Yes Code(s): E66.9 - Obesity, unspecified (6) Ulcer of right lower extremity with fat layer exposed Status: Acute Current Visit: Yes Code(s): L97.912 - Non-pressure chronic ulcer of unspecified part of right lower leg with fat layer exposed (7) Venous insufficiency (chronic) (peripheral) Status: Chronic Current Visit: Yes Code(s): I87.2 - Venous insufficiency (chronic) (peripheral) Type of Wound Chief Complaint: Right lateral lower leg ulcer and healing History of Wound: 57-year-old white male who walks with a walker and is 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 Came here because he kicked the door with his right leg in January and still not healing. The areas about the size of a quarter. He has been using Silvadene and has been on several antibiotics with his for physician. Patient was referred to us for further care Progress of Wound: Slow improvement noted. The wound seems to not heal quickly because of his venous insufficiency wound is more shallow puraply #8 applied today. He is developing some new tissue and it is hyper granulating but still not closed. The wound is smaller and starting to grow new cells. No redness no increased swelling. Noted some maceration around the edge. Patient to follow-up in 1 weeks and should be healed. - Physical Exam Vital Signs Temp Pulse Resp BP 98.3 F 57 L 18 170/86 H 08/10/18 09:28 08/10/18 09:28 08/10/18 09:28 08/10/18 09:28 General: Oriented x3, Cooperative, Well developed HEENT: Atraumatic, PERRLA Oral: Moist Mucosa Neck: Supple, No JVD Lungs: Clear to auscultation, Normal air movement Cardiovascular: Regular rate, Regular Rhythm Abdomen: Bowel Sounds Present, Soft, Non Tender, No Hepato-splenomegaly Extremities: No clubbing, No edema Skin: Ulcer/ Wound - Right lateral lower leg wound Wound Measurements and Assessment WC - Nurse 1 - General Ulcer Measurement Start: 07/13/18 08:25 Freq: Status: Active Protocol: Activity Type Activity Date Activity User E-Sign Co-Sign Detail Recorded Client Recorded Date Recorded By Document 08/10/18 09:28 AN [id number] 08/10/18 09:45 AN 08/10/18 09:28 Wound Center Nurse 1 [Ulcer Assessment] #1- RT LAT LE -Current Size (cm) - Length 1.3 -Current Size (cm) - Width 1.2 -Current Size (cm) - Depth 0.1 -Total Square Cm 1.56 -Photo Taken No -Epithelialization None Present -Tunneling No -Undermining/Tunneling No -Circular Undermining No -Classification - Thickness Full Thickness without Exposed Support Structure -Exudate Amt Medium (34-66%) -Exudate Type Yellow/Green -Wound Margin Distinct, Outline Attached -Granulation Amt Large (67-100%) -Granulation Quality Hyper- granulation -Slough/Fibrin Yes -Necrosis Amt Small (1-33%) -Necrotic Tissue Type Adherent Slough -Structure Exposed Fat Layer Exposed -Texture (Deisi-wound Skin Appearance) Assessed Callus -Moisture (Deisi-wound Skin Appearance Dry/Scaly ) -Color (Deisi-wound Skin Appearance) No Abnormality -Temperature (Deisi-wound Skin No Abnormality Appearance) (Pt Warm) -Tenderness on Palpation (Deisi-wound No Skin Appearance) -Ulcer Cleansing Rinsed/ Irrigated with Saline -Foul Odor after Cleansing No -Anesthetic Used 4% Lidocaine Solution [Edema Assessment] -Right Calf (cm) 53.1 -Right Ankle (cm) 30.2 WC - Nurse 2 - General Ulcer CM Notes Start: 07/13/18 08:25 Freq: Status: Active Protocol: Activity Type Activity Date Activity User E-Sign Co-Sign Detail Recorded Client Recorded Date Recorded By Document 08/10/18 09:58 MW [id number] 08/10/18 10:03 MW 08/10/18 09:58 Wound Center Nurse 2 [Procedure/Treatment] #1- RT LAT LE -Time 10:01 -Correct Patient Yes -Correct Side, Site, Position Yes -Correct Procedure Yes -Procedure Performed Yes -Type of Procedure Debridement -Clinical Debridement Subcutaneous -Post Debridement Size (cm) - Length 1.0 -Post Debridement Size (cm) - Width 1.0 -Post Debridement Size (cm) - Depth 0.1 -Total Square Cm 1.00 -Wound/Ulcer Outcome Not Healed -Ulcer Cleansing Rinsed/ Irrigated with Saline -Foul Odor after Cleansing No -Bioengineered Tissue Yes -Type of bioengineered Tissue [id number] -Expiration Date 11/08/20 -Product Lot Number [id number] -Percent Used 75 -Saline Lot Number [id number] -Bleeding Controlled with Pressure -Offloading No -Treatment Response Procedure Tolerated Well [See Physician Procedure note for Specifics] Pain Scale: 0-10 Numeric [Pain] -Is Patient Pain Free? Yes Musculoskeletal: No Tenderness to Palpation of Joints or Extremities Lymphatic: No Cervical, Supraclavicular, or Inguinal Adenopathy Neurological: Cranial nerves II-XII grossly intact, Neuro grossly intact Psych/Mental Status: Normal Affect, Appropriate Debridement Note Post-Debridement Measurements/Treatment WC - Nurse 2 - General Ulcer CM Notes Start: 07/13/18 08:25 Freq: Status: Active Protocol: Activity Type Activity Date Activity User E-Sign Co-Sign Detail Recorded Client Recorded Date Recorded By Document 07/13/18 08:49 MW [id number] 07/13/18 08:51 MW Document 07/20/18 08:50 MW [id number] 07/20/18 08:54 MW Document 07/27/18 09:41 MW [id number] 07/27/18 09:43 MW Document 08/10/18 09:58 MW [id number] 08/10/18 10:03 MW 07/13/18 07/20/18 07/27/18 08:49 08:50 09:41 Wound Center Nurse 2 #1- RT LAT LE -Time 08:50 08:50 09:41 -Correct Patient Yes Yes Yes -Correct Side, Site, Position Yes Yes Yes -Correct Procedure Yes Yes Yes -Procedure Performed Yes Yes Yes -Type of Procedure Debridement Debridement Debridement -Clinical Debridement Subcutaneous Subcutaneous Subcutaneous -Post Debridement Size (cm) - Length 1.5 1.3 1.1 -Post Debridement Size (cm) - Width 1.6 1.5 1.2 -Post Debridement Size (cm) - Depth 0.2 0.1 0.1 -Total Square Cm 2.40 1.95 1.32 -Wound/Ulcer Outcome Not Healed Not Healed Not Healed -Ulcer Cleansing Rinsed/ Rinsed/ Rinsed/ Irrigated with Irrigated with Irrigated with Saline Saline Saline -Foul Odor after Cleansing No No No -Bioengineered Tissue No Yes Yes -Type of bioengineered Tissue [id number] -Expiration Date 11/08/20 11/14/20 -Product Lot Number [id number] -Percent Used 100 100 -Saline Lot Number [id number] -Bleeding Controlled with Pressure Pressure Pressure -Offloading -Treatment Response Procedure Procedure Procedure Tolerated Well Tolerated Well Tolerated Well Pain Scale: 0-10 Numeric Is Patient Pain Free? Yes Yes Yes 08/10/18 09:58 Wound Center Nurse 2 #1- RT LAT LE -Time 10:01 -Correct Patient Yes -Correct Side, Site, Position Yes -Correct Procedure Yes -Procedure Performed Yes -Type of Procedure Debridement -Clinical Debridement Subcutaneous -Post Debridement Size (cm) - Length 1.0 -Post Debridement Size (cm) - Width 1.0 -Post Debridement Size (cm) - Depth 0.1 -Total Square Cm 1.00 -Wound/Ulcer Outcome Not Healed -Ulcer Cleansing Rinsed/ Irrigated with Saline -Foul Odor after Cleansing No -Bioengineered Tissue Yes -Type of bioengineered Tissue [id number] -Expiration Date 11/08/20 -Product Lot Number [id number] -Percent Used 75 -Saline Lot Number [id number] -Bleeding Controlled with Pressure -Offloading No -Treatment Response Procedure Tolerated Well Pain Scale: 0-10 Numeric Is Patient Pain Free? Yes Wound debrided: Lateral lower leg wound Anesthesia Used: 5% Lidocaine Gel Depth: Down to and including healthy tissue Assessment/Plan Active Problems Lumbar spine tumor (Chronic) Neuropathy of right lower extremity (Chronic) Obesity (BMI 30-39.9) (Chronic) Bilateral lower extremity edema (Chronic) Nonhealing nonsurgical wound limited to breakdown of skin (Acute) Ulcer of right lower extremity with fat layer exposed (Acute) Venous insufficiency (chronic) (peripheral) (Chronic) Assessment: Right lateral lower leg wound nonhealing. Venous insufficiency. Right lower leg edema. Peripheral neuropathy. Tumor on spine Plan: A subcutaneous debridement was performed as noted in the clinical panel. #8 puraply applied to right lower leg dressing intact patient to leave alone until next 1 week at follow-up. Continue Sid wraps 4 inch on the foot and six-inch on the leg. Patient to keep pressure off of area. call sooner if any issues or problems arise.
--- NOTE | 2018-08-10 11:14 | PN.PCM_ITS ---
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 Current Visit: Yes Code(s): G57.91 - Unspecified mononeuropathy of right lower limb (4) Nonhealing nonsurgical wound limited to breakdown of skin Status: Acute Current Visit: Yes Code(s): T14.8XXA - Other injury of unspecified body region, initial encounter (5) Obesity (BMI 30-39.9) Status: Chronic Current Visit: Yes Code(s): E66.9 - Obesity, unspecified (6) Ulcer of right lower extremity with fat layer exposed Status: Acute Current Visit: Yes Code(s): L97.912 - Non-pressure chronic ulcer of unspecified part of right lower leg with fat layer exposed (7) Venous insufficiency (chronic) (peripheral) Status: Chronic Current Visit: Yes Code(s): I87.2 - Venous insufficiency (chronic) (peripheral) Type of Wound Chief Complaint: Right lateral lower leg ulcer and healing History of Wound: 57-year-old white male who walks with a walker and is 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 Came here because he kicked the door with his right leg in January and still not healing. The areas about the size of a quarter. He has been using Silvadene and has been on several antibiotics with his for physician. Patient was referred to us for further care Progress of Wound: Slow improvement noted. The wound seems to not heal quickly because of his venous insufficiency wound is more shallow puraply #8 applied today. He is developing some new tissue and it is hyper granulating but still not closed. The wound is smaller and starting to grow new cells. No redness no increased swelling. Noted some maceration around the edge. Patient to follow- up in 1 weeks and should be healed. - Physical Exam Vital Signs Temp Pulse Resp BP 98.3 F 57 L 18 170/86 H 08/10/18 09:28 08/10/18 09:28 08/10/18 09:28 08/10/18 09:28 General: Oriented x3, Cooperative, Well developed HEENT: Atraumatic, PERRLA Oral: Moist Mucosa Neck: Supple, No JVD Lungs: Clear to auscultation, Normal air movement Cardiovascular: Regular rate, Regular Rhythm Abdomen: Bowel Sounds Present, Soft, Non Tender, No Hepato-splenomegaly Extremities: No clubbing, No edema Skin: Ulcer/ Wound - Right lateral lower leg wound Wound Measurements and Assessment WC - Nurse 1 - General Ulcer Measurement Start: 07/13/18 08:25 Freq: Status: Active Protocol: Activity Type Activity Date Activity User E-Sign Co-Sign Detail Recorded Client Recorded Date Recorded By Document 08/10/18 09:28 AN [id number] 08/10/18 09:45 AN 08/10/18 09:28 Wound Center Nurse 1 [Ulcer Assessment] #1- RT LAT LE -Current Size (cm) - Length 1.3 -Current Size (cm) - Width 1.2 -Current Size (cm) - Depth 0.1 -Total Square Cm 1.56 -Photo Taken No -Epithelialization None Present -Tunneling No -Undermining/Tunneling No -Circular Undermining No -Classification - Thickness Full Thickness without Exposed Support Structure -Exudate Amt Medium (34-66%) -Exudate Type Yellow/Green -Wound Margin Distinct, Outline Attached -Granulation Amt Large (67-100%) -Granulation Quality Hyper- granulation -Slough/Fibrin Yes -Necrosis Amt Small (1-33%) -Necrotic Tissue Type Adherent Slough -Structure Exposed Fat Layer Exposed -Texture (Deisi-wound Skin Appearance) Assessed Callus -Moisture (Deisi-wound Skin Appearance Dry/Scaly ) -Color (Deisi-wound Skin Appearance) No Abnormality -Temperature (Deisi-wound Skin No Abnormality Appearance) (Pt Warm) -Tenderness on Palpation (Deisi-wound No Skin Appearance) -Ulcer Cleansing Rinsed/ Irrigated with Saline -Foul Odor after Cleansing No -Anesthetic Used 4% Lidocaine Solution [Edema Assessment] -Right Calf (cm) 53.1 -Right Ankle (cm) 30.2 WC - Nurse 2 - General Ulcer CM Notes Start: 07/13/18 08:25 Freq: Status: Active Protocol: Activity Type Activity Date Activity User E-Sign Co-Sign Detail Recorded Client Recorded Date Recorded By Document 08/10/18 09:58 MW [id number] 08/10/18 10:03 MW 08/10/18 09:58 Wound Center Nurse 2 [Procedure/Treatment] #1- RT LAT LE -Time 10:01 -Correct Patient Yes -Correct Side, Site, Position Yes -Correct Procedure Yes -Procedure Performed Yes -Type of Procedure Debridement -Clinical Debridement Subcutaneous -Post Debridement Size (cm) - Length 1.0 -Post Debridement Size (cm) - Width 1.0 -Post Debridement Size (cm) - Depth 0.1 -Total Square Cm 1.00 -Wound/Ulcer Outcome Not Healed -Ulcer Cleansing Rinsed/ Irrigated with Saline -Foul Odor after Cleansing No -Bioengineered Tissue Yes -Type of bioengineered Tissue [id number] -Expiration Date 11/08/20 -Product Lot Number [id number] -Percent Used 75 -Saline Lot Number [id number] -Bleeding Controlled with Pressure -Offloading No -Treatment Response Procedure Tolerated Well [See Physician Procedure note for Specifics] Pain Scale: 0-10 Numeric [Pain] -Is Patient Pain Free? Yes Musculoskeletal: No Tenderness to Palpation of Joints or Extremities Lymphatic: No Cervical, Supraclavicular, or Inguinal Adenopathy Neurological: Cranial nerves II-XII grossly intact, Neuro grossly intact Psych/Mental Status: Normal Affect, Appropriate Debridement Note Post-Debridement Measurements/Treatment WC - Nurse 2 - General Ulcer CM Notes Start: 07/13/18 08:25 Freq: Status: Active Protocol: Activity Type Activity Date Activity User E-Sign Co-Sign Detail Recorded Client Recorded Date Recorded By Document 07/13/18 08:49 MW [id number] 07/13/18 08:51 MW Document 07/20/18 08:50 MW [id number] 07/20/18 08:54 MW Document 07/27/18 09:41 MW [id number] 07/27/18 09:43 MW Document 08/10/18 09:58 MW [id number] 08/10/18 10:03 MW 07/13/18 07/20/18 07/27/18 08:49 08:50 09:41 Wound Center Nurse 2 #1- RT LAT LE -Time 08:50 08:50 09:41 -Correct Patient Yes Yes Yes -Correct Side, Site, Position Yes Yes Yes -Correct Procedure Yes Yes Yes -Procedure Performed Yes Yes Yes -Type of Procedure Debridement Debridement Debridement -Clinical Debridement Subcutaneous Subcutaneous Subcutaneous -Post Debridement Size (cm) - Length 1.5 1.3 1.1 -Post Debridement Size (cm) - Width 1.6 1.5 1.2 -Post Debridement Size (cm) - Depth 0.2 0.1 0.1 -Total Square Cm 2.40 1.95 1.32 -Wound/Ulcer Outcome Not Healed Not Healed Not Healed -Ulcer Cleansing Rinsed/ Rinsed/ Rinsed/ Irrigated with Irrigated with Irrigated with Saline Saline Saline -Foul Odor after Cleansing No No No -Bioengineered Tissue No Yes Yes -Type of bioengineered Tissue [id number] -Expiration Date 11/08/20 11/14/20 -Product Lot Number [id number] -Percent Used 100 100 -Saline Lot Number [id number] -Bleeding Controlled with Pressure Pressure Pressure -Offloading -Treatment Response Procedure Procedure Procedure Tolerated Well Tolerated Well Tolerated Well Pain Scale: 0-10 Numeric Is Patient Pain Free? Yes Yes Yes 08/10/18 09:58 Wound Center Nurse 2 #1- RT LAT LE -Time 10:01 -Correct Patient Yes -Correct Side, Site, Position Yes -Correct Procedure Yes -Procedure Performed Yes -Type of Procedure Debridement -Clinical Debridement Subcutaneous -Post Debridement Size (cm) - Length 1.0 -Post Debridement Size (cm) - Width 1.0 -Post Debridement Size (cm) - Depth 0.1 -Total Square Cm 1.00 -Wound/Ulcer Outcome Not Healed -Ulcer Cleansing Rinsed/ Irrigated with Saline -Foul Odor after Cleansing No -Bioengineered Tissue Yes -Type of bioengineered Tissue [id number] -Expiration Date 11/08/20 -Product Lot Number [id number] -Percent Used 75 -Saline Lot Number [id number] -Bleeding Controlled with Pressure -Offloading No -Treatment Response Procedure Tolerated Well Pain Scale: 0-10 Numeric Is Patient Pain Free? Yes Wound debrided: Lateral lower leg wound Anesthesia Used: 5% Lidocaine Gel Depth: Down to and including healthy tissue Assessment/Plan Active Problems Lumbar spine tumor (Chronic) Neuropathy of right lower extremity (Chronic) Obesity (BMI 30-39.9) (Chronic) Bilateral lower extremity edema (Chronic) Nonhealing nonsurgical wound limited to breakdown of skin (Acute) Ulcer of right lower extremity with fat layer exposed (Acute) Venous insufficiency (chronic) (peripheral) (Chronic) Assessment: Right lateral lower leg wound nonhealing. Venous insufficiency. Right lower leg edema. Peripheral neuropathy. Tumor on spine Plan: A subcutaneous debridement was performed as noted in the clinical panel. #8 puraply applied to right lower leg dressing intact patient to leave alone until next 1 week at follow-up. Continue Sid wraps 4 inch on the foot and six- inch on the leg. Patient to keep pressure off of area. call sooner if any issues or problems arise.
== END 2018-08-10 23:59 ==
LOC: WC 09:00
PROVIDERS: Family Provider Family Medicine; PCP Family Medicine; Referring Provider Nurse Practitioner; Visit Provider Nurse Practitioner
DX: I87.2 Venous insufficiency (chronic) (peripheral) (principal); L97.811 Non-pressure chronic ulcer of other part of right lower leg limited to breakdown of skin; D49.2 Neoplasm of unspecified behavior of bone, soft tissue, and skin; R60.0 Localized edema; E66.9 Obesity, unspecified; Z71.3 Dietary counseling and surveillance; G62.9 Polyneuropathy, unspecified
CPT/HCPCS: 15271; Q4172

== ENCOUNTER 2018-09-07 08:30 | Outpatient (RCR) | payer MEDICARE, SELFPAY ==
[2018-08-11 01:08] VITALS: BP 170/86; PULSE 57; RESP 18; TEMP 36.8
[2018-08-17 08:32] VITALS: BP 160/71; PULSE 61; RESP 16; TEMP 36.1
--- NOTE | 2018-08-17 09:15 | PCM.WC.PN ---
(1) Nonhealing nonsurgical wound limited to breakdown of skin Status: Acute Current Visit: Yes Code(s): T14.8XXA - Other injury of unspecified body region, initial encounter (2) Ulcer of right lower extremity with fat layer exposed Status: Acute Current Visit: Yes Code(s): L97.912 - Non-pressure chronic ulcer of unspecified part of right lower leg with fat layer exposed (3) Bilateral lower extremity edema Status: Chronic Current Visit: Yes Code(s): R60.0 - Localized edema (4) Lumbar spine tumor Status: Chronic Current Visit: Yes Code(s): D49.2 - Neoplasm of unspecified behavior of bone, soft tissue, and skin (5) 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 Came here because he kicked the door with his right leg in January and still not healing. The areas about the size of a quarter. He has been using Silvadene and has been on several antibiotics with his for physician. Patient was referred to us for further care Progress of Wound: Slow improvement noted. The wound seems to not heal quickly because of his venous insufficiency wound is more shallow. Patient was approved for Apligraf #1 applied. He received puraply #8 total . He is developing some new tissue and it is hyper granulating but still not closed. The wound is smaller and starting to grow new cells. No redness no increased swelling. Noted some maceration around the edge. Patient to follow-up in 1 weeks and should be healed. - Physical Exam Vital Signs Temp Pulse Resp BP 96.9 F L 61 16 160/71 H 08/17/18 08:32 08/17/18 08:32 08/17/18 08:32 08/17/18 08:32 General: Oriented x3, Cooperative, Well developed HEENT: Atraumatic, PERRLA Oral: Moist Mucosa Neck: Supple, No JVD Lungs: Clear to auscultation, Normal air movement Cardiovascular: Regular rate, Regular Rhythm Abdomen: Bowel Sounds Present, Soft, Non Tender, No Hepato-splenomegaly Extremities: No clubbing, No edema, - - Right lateral lower leg wound Wound Measurements and Assessment WC - Nurse 1 - General Ulcer Measurement Start: 08/17/18 08:32 Freq: Status: Active Protocol: Activity Type Activity Date Activity User E-Sign Co-Sign Detail Recorded Client Recorded Date Recorded By Document 08/17/18 08:32 CS [id number] 08/17/18 08:37 CS 08/17/18 08:32 Wound Center Nurse 1 [Ulcer Assessment] #1- RT LAT LE -Combined with other wound No -Current Size (cm) - Length 1.1 -Current Size (cm) - Width 1 -Current Size (cm) - Depth 0.1 -Total Square Cm 1.1 -Photo Taken No -Epithelialization Small 1-33% -Tunneling No -Undermining/Tunneling No -Circular Undermining No -Exudate Amt Small (1-33%) -Exudate Type Serosanguineous -Wound Margin Distinct, Outline Attached -Granulation Amt Medium (34-66%) -Granulation Quality Red -Slough/Fibrin Yes -Necrosis Amt None Present (0 %) -Necrotic Tissue Type Adherent Slough -Structure Exposed None/Limited to Skin Breakdown -Texture (Deisi-wound Skin Appearance) No Abnormality Assessed -Moisture (Deisi-wound Skin Appearance No Abnormality ) Assessed -Color (Deisi-wound Skin Appearance) No Abnormality Assessed -Temperature (Deisi-wound Skin No Abnormality Appearance) (Pt Warm) -Tenderness on Palpation (Deisi-wound No Skin Appearance) -Ulcer Cleansing Rinsed/ Irrigated with Saline -Foul Odor after Cleansing No -Anesthetic Used 4% Lidocaine Solution [Edema Assessment] -Lower Limb Edema Present NA WC - Nurse 2 - General Ulcer CM Notes Start: 08/17/18 08:32 Freq: Status: Active Protocol: Activity Type Activity Date Activity User E-Sign Co-Sign Detail Recorded Client Recorded Date Recorded By Document 08/17/18 08:51 MW [id number] 08/17/18 08:56 MW 08/17/18 08:51 Wound Center Nurse 2 [Procedure/Treatment] #1- RT LAT LE -Time 08:52 -Correct Patient Yes -Correct Side, Site, Position Yes -Correct Procedure Yes -Procedure Performed Yes -Type of Procedure Debridement -Clinical Debridement Subcutaneous -Post Debridement Size (cm) - Length 1.1 -Post Debridement Size (cm) - Width 1.0 -Post Debridement Size (cm) - Depth 0.1 -Total Square Cm 1.10 -Wound/Ulcer Outcome Failed Graft -Ulcer Cleansing Rinsed/ Irrigated with Saline -Foul Odor after Cleansing No -Bioengineered Tissue No -Type of bioengineered Tissue Apligraf -Expiration Date 08/24/18 -Product Lot Number [id number] -Percent Used 25 -Saline Lot Number [id number] -Bleeding Controlled with Pressure -Offloading No -Treatment Response Procedure Tolerated Well [See Physician Procedure note for Specifics] Pain Scale: 0-10 Numeric [Pain] -Is Patient Pain Free? Yes Musculoskeletal: No Tenderness to Palpation of Joints or Extremities Lymphatic: No Cervical, Supraclavicular, or Inguinal Adenopathy Neurological: Cranial nerves II-XII grossly intact, Neuro grossly intact Psych/Mental Status: Normal Affect, Appropriate Debridement Note Post-Debridement Measurements/Treatment WC - Nurse 2 - General Ulcer CM Notes Start: 08/17/18 08:32 Freq: Status: Active Protocol: Activity Type Activity Date Activity User E-Sign Co-Sign Detail Recorded Client Recorded Date Recorded By Document 08/17/18 08:51 MW [id number] 08/17/18 08:56 MW 08/17/18 08:51 Wound Center Nurse 2 #1- RT LAT LE -Time 08:52 -Correct Patient Yes -Correct Side, Site, Position Yes -Correct Procedure Yes -Procedure Performed Yes -Type of Procedure Debridement -Clinical Debridement Subcutaneous -Post Debridement Size (cm) - Length 1.1 -Post Debridement Size (cm) - Width 1.0 -Post Debridement Size (cm) - Depth 0.1 -Total Square Cm 1.10 -Wound/Ulcer Outcome Failed Graft -Ulcer Cleansing Rinsed/ Irrigated with Saline -Foul Odor after Cleansing No -Bioengineered Tissue No -Type of bioengineered Tissue Apligraf -Expiration Date 08/24/18 -Product Lot Number [id number] -Percent Used 25 -Saline Lot Number [id number] -Bleeding Controlled with Pressure -Offloading No -Treatment Response Procedure Tolerated Well Pain Scale: 0-10 Numeric Is Patient Pain Free? Yes Wound debrided: Right lateral lower leg wound Type of Debridement: Excisional debridement Anesthesia Used: 5% Lidocaine Gel Depth: Down to and including healthy tissue, in the subcutaneous layer Percentage of wound debrided: 100 Instrument Used: 3mm curette Tissue Removed: Fibrin Severity: Limited To Skin Breakdown Amount of bleeding with debridement: None Patient tolerated procedure well Assessment/Plan Active Problems Lumbar spine tumor (Chronic) Neuropathy of right lower extremity (Chronic) Obesity (BMI 30-39.9) (Chronic) Bilateral lower extremity edema (Chronic) Nonhealing nonsurgical wound limited to breakdown of skin (Acute) Ulcer of right lower extremity with fat layer exposed (Acute) Venous insufficiency (chronic) (peripheral) (Chronic) Assessment: Right lateral lower leg wound nonhealing. Venous insufficiency. Right lower leg edema. Peripheral neuropathy. Tumor on spine Plan: A subcutaneous debridement was performed as noted in the clinical panel. #1 Apligraf applied to right lower leg dressing intact patient to leave alone until next 2 week at follow-up. Continue Sid wraps 4 inch on the foot and six-inch on the leg. Patient to keep pressure off of area. call sooner if any issues or problems arise.
--- NOTE | 2018-08-17 09:18 | PN.PCM_ITS ---
(1) Nonhealing nonsurgical wound limited to breakdown of skin Status: Acute Current Visit: Yes Code(s): T14.8XXA - Other injury of unspecified body region, initial encounter (2) Ulcer of right lower extremity with fat layer exposed Status: Acute Current Visit: Yes Code(s): L97.912 - Non-pressure chronic ulcer of unspecified part of right lower leg with fat layer exposed (3) Bilateral lower extremity edema Status: Chronic Current Visit: Yes Code(s): R60.0 - Localized edema (4) Lumbar spine tumor Status: Chronic Current Visit: Yes Code(s): D49.2 - Neoplasm of unspecified behavior of bone, soft tissue, and skin (5) 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 Came here because he kicked the door with his right leg in January and still not healing. The areas about the size of a quarter. He has been using Silvadene and has been on several antibiotics with his for physician. Patient was referred to us for further care Progress of Wound: Slow improvement noted. The wound seems to not heal quickly because of his venous insufficiency wound is more shallow. Patient was approved for Apligraf #1 applied. He received puraply #8 total . He is developing some new tissue and it is hyper granulating but still not closed. The wound is smaller and starting to grow new cells. No redness no increased swelling. Noted some maceration around the edge. Patient to follow-up in 1 weeks and should be healed. - Physical Exam Vital Signs Temp Pulse Resp BP 96.9 F L 61 16 160/71 H 08/17/18 08:32 08/17/18 08:32 08/17/18 08:32 08/17/18 08:32 General: Oriented x3, Cooperative, Well developed HEENT: Atraumatic, PERRLA Oral: Moist Mucosa Neck: Supple, No JVD Lungs: Clear to auscultation, Normal air movement Cardiovascular: Regular rate, Regular Rhythm Abdomen: Bowel Sounds Present, Soft, Non Tender, No Hepato-splenomegaly Extremities: No clubbing, No edema, - - Right lateral lower leg wound Wound Measurements and Assessment WC - Nurse 1 - General Ulcer Measurement Start: 08/17/18 08:32 Freq: Status: Active Protocol: Activity Type Activity Date Activity User E-Sign Co-Sign Detail Recorded Client Recorded Date Recorded By Document 08/17/18 08:32 CS [id number] 08/17/18 08:37 CS 08/17/18 08:32 Wound Center Nurse 1 [Ulcer Assessment] #1- RT LAT LE -Combined with other wound No -Current Size (cm) - Length 1.1 -Current Size (cm) - Width 1 -Current Size (cm) - Depth 0.1 -Total Square Cm 1.1 -Photo Taken No -Epithelialization Small 1-33% -Tunneling No -Undermining/Tunneling No -Circular Undermining No -Exudate Amt Small (1-33%) -Exudate Type Serosanguineous -Wound Margin Distinct, Outline Attached -Granulation Amt Medium (34-66%) -Granulation Quality Red -Slough/Fibrin Yes -Necrosis Amt None Present (0 %) -Necrotic Tissue Type Adherent Slough -Structure Exposed None/Limited to Skin Breakdown -Texture (Deisi-wound Skin Appearance) No Abnormality Assessed -Moisture (Deisi-wound Skin Appearance No Abnormality ) Assessed -Color (Deisi-wound Skin Appearance) No Abnormality Assessed -Temperature (Deisi-wound Skin No Abnormality Appearance) (Pt Warm) -Tenderness on Palpation (Deisi-wound No Skin Appearance) -Ulcer Cleansing Rinsed/ Irrigated with Saline -Foul Odor after Cleansing No -Anesthetic Used 4% Lidocaine Solution [Edema Assessment] -Lower Limb Edema Present NA WC - Nurse 2 - General Ulcer CM Notes Start: 08/17/18 08:32 Freq: Status: Active Protocol: Activity Type Activity Date Activity User E-Sign Co-Sign Detail Recorded Client Recorded Date Recorded By Document 08/17/18 08:51 MW [id number] 08/17/18 08:56 MW 08/17/18 08:51 Wound Center Nurse 2 [Procedure/Treatment] #1- RT LAT LE -Time 08:52 -Correct Patient Yes -Correct Side, Site, Position Yes -Correct Procedure Yes -Procedure Performed Yes -Type of Procedure Debridement -Clinical Debridement Subcutaneous -Post Debridement Size (cm) - Length 1.1 -Post Debridement Size (cm) - Width 1.0 -Post Debridement Size (cm) - Depth 0.1 -Total Square Cm 1.10 -Wound/Ulcer Outcome Failed Graft -Ulcer Cleansing Rinsed/ Irrigated with Saline -Foul Odor after Cleansing No -Bioengineered Tissue No -Type of bioengineered Tissue Apligraf -Expiration Date 08/24/18 -Product Lot Number [id number] -Percent Used 25 -Saline Lot Number [id number] -Bleeding Controlled with Pressure -Offloading No -Treatment Response Procedure Tolerated Well [See Physician Procedure note for Specifics] Pain Scale: 0-10 Numeric [Pain] -Is Patient Pain Free? Yes Musculoskeletal: No Tenderness to Palpation of Joints or Extremities Lymphatic: No Cervical, Supraclavicular, or Inguinal Adenopathy Neurological: Cranial nerves II-XII grossly intact, Neuro grossly intact Psych/Mental Status: Normal Affect, Appropriate Debridement Note Post-Debridement Measurements/Treatment WC - Nurse 2 - General Ulcer CM Notes Start: 08/17/18 08:32 Freq: Status: Active Protocol: Activity Type Activity Date Activity User E-Sign Co-Sign Detail Recorded Client Recorded Date Recorded By Document 08/17/18 08:51 MW [id number] 08/17/18 08:56 MW 08/17/18 08:51 Wound Center Nurse 2 #1- RT LAT LE -Time 08:52 -Correct Patient Yes -Correct Side, Site, Position Yes -Correct Procedure Yes -Procedure Performed Yes -Type of Procedure Debridement -Clinical Debridement Subcutaneous -Post Debridement Size (cm) - Length 1.1 -Post Debridement Size (cm) - Width 1.0 -Post Debridement Size (cm) - Depth 0.1 -Total Square Cm 1.10 -Wound/Ulcer Outcome Failed Graft -Ulcer Cleansing Rinsed/ Irrigated with Saline -Foul Odor after Cleansing No -Bioengineered Tissue No -Type of bioengineered Tissue Apligraf -Expiration Date 08/24/18 -Product Lot Number [id number] -Percent Used 25 -Saline Lot Number [id number] -Bleeding Controlled with Pressure -Offloading No -Treatment Response Procedure Tolerated Well Pain Scale: 0-10 Numeric Is Patient Pain Free? Yes Wound debrided: Right lateral lower leg wound Type of Debridement: Excisional debridement Anesthesia Used: 5% Lidocaine Gel Depth: Down to and including healthy tissue, in the subcutaneous layer Percentage of wound debrided: 100 Instrument Used: 3mm curette Tissue Removed: Fibrin Severity: Limited To Skin Breakdown Amount of bleeding with debridement: None Patient tolerated procedure well Assessment/Plan Active Problems Lumbar spine tumor (Chronic) Neuropathy of right lower extremity (Chronic) Obesity (BMI 30-39.9) (Chronic) Bilateral lower extremity edema (Chronic) Nonhealing nonsurgical wound limited to breakdown of skin (Acute) Ulcer of right lower extremity with fat layer exposed (Acute) Venous insufficiency (chronic) (peripheral) (Chronic) Assessment: Right lateral lower leg wound nonhealing. Venous insufficiency. Right lower leg edema. Peripheral neuropathy. Tumor on spine Plan: A subcutaneous debridement was performed as noted in the clinical panel. #1 Apligraf applied to right lower leg dressing intact patient to leave alone until next 2 week at follow-up. Continue Sid wraps 4 inch on the foot and six- inch on the leg. Patient to keep pressure off of area. call sooner if any issues or problems arise.
[2018-08-31 08:12] VITALS: BP 160/87; PULSE 68; RESP 20; TEMP 36.4
--- NOTE | 2018-08-31 09:20 | PCM.WC.PN ---
(1) Nonhealing nonsurgical wound limited to breakdown of skin Status: Acute Current Visit: Yes Code(s): T14.8XXA - Other injury of unspecified body region, initial encounter (2) Ulcer of right lower extremity with fat layer exposed Status: Acute Current Visit: Yes Code(s): L97.912 - Non-pressure chronic ulcer of unspecified part of right lower leg with fat layer exposed (3) Bilateral lower extremity edema Status: Chronic Current Visit: Yes Code(s): R60.0 - Localized edema (4) Lumbar spine tumor Status: Chronic Current Visit: Yes Code(s): D49.2 - Neoplasm of unspecified behavior of bone, soft tissue, and skin (5) 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 Came here because he kicked the door with his right leg in January and still not healing. The areas about the size of a quarter. He has been using Silvadene and has been on several antibiotics with his for physician. Patient was referred to us for further care Progress of Wound: Patient was approved for Apligraf #1 applied. He is starting to hyper granulated and we cauterized the tissue and will just use Adaptic this week and follow-up in 1 week to see if he needs further Apligraf's. He received puraply #8 total . Patient to follow-up in 1 weeks and may be healed. - Physical Exam Vital Signs Temp Pulse Resp BP 97.5 F L 68 20 H 160/87 H 08/31/18 08:12 08/31/18 08:12 08/31/18 08:12 08/31/18 08:12 General: Oriented x3, Cooperative, Well developed HEENT: Atraumatic, PERRLA Oral: Moist Mucosa Neck: Supple, No JVD Lungs: Clear to auscultation, Normal air movement Cardiovascular: Regular rate, Regular Rhythm Abdomen: Bowel Sounds Present, Soft, Non Tender, No Hepato-splenomegaly Extremities: No clubbing, No edema Skin: Ulcer/ Wound - Right lateral lower leg traumatic Wound Measurements and Assessment WC - Nurse 1 - General Ulcer Measurement Start: 08/17/18 08:32 Freq: Status: Active Protocol: Activity Type Activity Date Activity User E-Sign Co-Sign Detail Recorded Client Recorded Date Recorded By Document 08/31/18 08:12 CS [id number] 08/31/18 08:13 CS 08/31/18 08:12 Wound Center Nurse 1 [Ulcer Assessment] #1- RT LAT LE -Combined with other wound No -Current Size (cm) - Length 1.2 -Current Size (cm) - Width 1.1 -Current Size (cm) - Depth 0.1 -Total Square Cm 1.32 -Photo Taken No -Epithelialization Small 1-33% -Tunneling No -Undermining/Tunneling No -Circular Undermining No -Wound Margin Distinct, Outline Attached -Granulation Amt Large (67-100%) -Granulation Quality Hyper- granulation -Necrosis Amt Small (1-33%) -Necrotic Tissue Type Adherent Slough -Structure Exposed None/Limited to Skin Breakdown -Texture (Deisi-wound Skin Appearance) Scarring -Moisture (Deisi-wound Skin Appearance Assessed ) Dry/Scaly -Color (Deisi-wound Skin Appearance) No Abnormality Assessed -Temperature (Deisi-wound Skin No Abnormality Appearance) (Pt Warm) -Tenderness on Palpation (Deisi-wound No Skin Appearance) -Ulcer Cleansing Rinsed/ Irrigated with Saline -Foul Odor after Cleansing No -Anesthetic Used 4% Lidocaine Solution [Edema Assessment] -Lower Limb Edema Present NA WC - Nurse 2 - General Ulcer CM Notes Start: 08/17/18 08:32 Freq: Status: Active Protocol: Activity Type Activity Date Activity User E-Sign Co-Sign Detail Recorded Client Recorded Date Recorded By Document 08/31/18 08:27 MW [id number] 08/31/18 08:28 MW 08/31/18 08:27 Wound Center Nurse 2 [Procedure/Treatment] #1- RT LAT LE -Time 08:28 -Correct Patient Yes -Correct Side, Site, Position Yes -Correct Procedure Yes -Procedure Performed No -Post Debridement Size (cm) - Length 1.2 -Post Debridement Size (cm) - Width 1.1 -Post Debridement Size (cm) - Depth 0.1 -Total Square Cm 1.32 -Wound/Ulcer Outcome Not Healed -Ulcer Cleansing Rinsed/ Irrigated with Saline -Foul Odor after Cleansing No -Bioengineered Tissue No -Bleeding Controlled with Silver Nitrate -Offloading No -Treatment Response Procedure Tolerated Well [See Physician Procedure note for Specifics] Pain Scale: 0-10 Numeric [Pain] -Is Patient Pain Free? Yes Musculoskeletal: No Tenderness to Palpation of Joints or Extremities Lymphatic: No Cervical, Supraclavicular, or Inguinal Adenopathy Neurological: Cranial nerves II-XII grossly intact, Neuro grossly intact Psych/Mental Status: Normal Affect, Appropriate Debridement Note Post-Debridement Measurements/Treatment WC - Nurse 2 - General Ulcer CM Notes Start: 08/17/18 08:32 Freq: Status: Active Protocol: Activity Type Activity Date Activity User E-Sign Co-Sign Detail Recorded Client Recorded Date Recorded By Document 08/17/18 08:51 MW [id number] 08/17/18 08:56 MW Document 08/31/18 08:27 MW [id number] 08/31/18 08:28 MW 08/17/18 08/31/18 08:51 08:27 Wound Center Nurse 2 #1- RT LAT LE -Time 08:52 08:28 -Correct Patient Yes Yes -Correct Side, Site, Position Yes Yes -Correct Procedure Yes Yes -Procedure Performed Yes No -Type of Procedure Debridement -Clinical Debridement Subcutaneous -Post Debridement Size (cm) - Length 1.1 1.2 -Post Debridement Size (cm) - Width 1.0 1.1 -Post Debridement Size (cm) - Depth 0.1 0.1 -Total Square Cm 1.10 1.32 -Wound/Ulcer Outcome Failed Graft Not Healed -Ulcer Cleansing Rinsed/ Rinsed/ Irrigated with Irrigated with Saline Saline -Foul Odor after Cleansing No No -Bioengineered Tissue No No -Type of bioengineered Tissue Apligraf -Expiration Date 08/24/18 -Product Lot Number [id number] -Percent Used 25 -Saline Lot Number [id number] -Bleeding Controlled with Pressure Silver Nitrate -Offloading No No -Treatment Response Procedure Procedure Tolerated Well Tolerated Well Pain Scale: 0-10 Numeric Is Patient Pain Free? Yes Yes Wound debrided: Right lateral lower leg hyper granulation Bleeding Controlled with: Silver Nitrate No debridement was completed today Assessment/Plan Active Problems Lumbar spine tumor (Chronic) Neuropathy of right lower extremity (Chronic) Obesity (BMI 30-39.9) (Chronic) Bilateral lower extremity edema (Chronic) Nonhealing nonsurgical wound limited to breakdown of skin (Acute) Ulcer of right lower extremity with fat layer exposed (Acute) Venous insufficiency (chronic) (peripheral) (Chronic) Assessment: Right lateral lower leg wound nonhealing. Venous insufficiency. Right lower leg edema. Peripheral neuropathy. Tumor on spine Plan: Adaptic to area daily. Follow-up in 1 week. Continue wearing Sid wrap to right lower leg
--- NOTE | 2018-08-31 09:24 | PN.PCM_ITS ---
(1) Nonhealing nonsurgical wound limited to breakdown of skin Status: Acute Current Visit: Yes Code(s): T14.8XXA - Other injury of unspecified body region, initial encounter (2) Ulcer of right lower extremity with fat layer exposed Status: Acute Current Visit: Yes Code(s): L97.912 - Non-pressure chronic ulcer of unspecified part of right lower leg with fat layer exposed (3) Bilateral lower extremity edema Status: Chronic Current Visit: Yes Code(s): R60.0 - Localized edema (4) Lumbar spine tumor Status: Chronic Current Visit: Yes Code(s): D49.2 - Neoplasm of unspecified behavior of bone, soft tissue, and skin (5) 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 Came here because he kicked the door with his right leg in January and still not healing. The areas about the size of a quarter. He has been using Silvadene and has been on several antibiotics with his for physician. Patient was referred to us for further care Progress of Wound: Patient was approved for Apligraf #1 applied. He is starting to hyper granulated and we cauterized the tissue and will just use Adaptic this week and follow-up in 1 week to see if he needs further Apligraf's. He received puraply #8 total . Patient to follow-up in 1 weeks and may be healed. - Physical Exam Vital Signs Temp Pulse Resp BP 97.5 F L 68 20 H 160/87 H 08/31/18 08:12 08/31/18 08:12 08/31/18 08:12 08/31/18 08:12 General: Oriented x3, Cooperative, Well developed HEENT: Atraumatic, PERRLA Oral: Moist Mucosa Neck: Supple, No JVD Lungs: Clear to auscultation, Normal air movement Cardiovascular: Regular rate, Regular Rhythm Abdomen: Bowel Sounds Present, Soft, Non Tender, No Hepato-splenomegaly Extremities: No clubbing, No edema Skin: Ulcer/ Wound - Right lateral lower leg traumatic Wound Measurements and Assessment WC - Nurse 1 - General Ulcer Measurement Start: 08/17/18 08:32 Freq: Status: Active Protocol: Activity Type Activity Date Activity User E-Sign Co-Sign Detail Recorded Client Recorded Date Recorded By Document 08/31/18 08:12 CS [id number] 08/31/18 08:13 CS 08/31/18 08:12 Wound Center Nurse 1 [Ulcer Assessment] #1- RT LAT LE -Combined with other wound No -Current Size (cm) - Length 1.2 -Current Size (cm) - Width 1.1 -Current Size (cm) - Depth 0.1 -Total Square Cm 1.32 -Photo Taken No -Epithelialization Small 1-33% -Tunneling No -Undermining/Tunneling No -Circular Undermining No -Wound Margin Distinct, Outline Attached -Granulation Amt Large (67-100%) -Granulation Quality Hyper- granulation -Necrosis Amt Small (1-33%) -Necrotic Tissue Type Adherent Slough -Structure Exposed None/Limited to Skin Breakdown -Texture (Deisi-wound Skin Appearance) Scarring -Moisture (Deisi-wound Skin Appearance Assessed ) Dry/Scaly -Color (Deisi-wound Skin Appearance) No Abnormality Assessed -Temperature (Deisi-wound Skin No Abnormality Appearance) (Pt Warm) -Tenderness on Palpation (Deisi-wound No Skin Appearance) -Ulcer Cleansing Rinsed/ Irrigated with Saline -Foul Odor after Cleansing No -Anesthetic Used 4% Lidocaine Solution [Edema Assessment] -Lower Limb Edema Present NA WC - Nurse 2 - General Ulcer CM Notes Start: 08/17/18 08:32 Freq: Status: Active Protocol: Activity Type Activity Date Activity User E-Sign Co-Sign Detail Recorded Client Recorded Date Recorded By Document 08/31/18 08:27 MW [id number] 08/31/18 08:28 MW 08/31/18 08:27 Wound Center Nurse 2 [Procedure/Treatment] #1- RT LAT LE -Time 08:28 -Correct Patient Yes -Correct Side, Site, Position Yes -Correct Procedure Yes -Procedure Performed No -Post Debridement Size (cm) - Length 1.2 -Post Debridement Size (cm) - Width 1.1 -Post Debridement Size (cm) - Depth 0.1 -Total Square Cm 1.32 -Wound/Ulcer Outcome Not Healed -Ulcer Cleansing Rinsed/ Irrigated with Saline -Foul Odor after Cleansing No -Bioengineered Tissue No -Bleeding Controlled with Silver Nitrate -Offloading No -Treatment Response Procedure Tolerated Well [See Physician Procedure note for Specifics] Pain Scale: 0-10 Numeric [Pain] -Is Patient Pain Free? Yes Musculoskeletal: No Tenderness to Palpation of Joints or Extremities Lymphatic: No Cervical, Supraclavicular, or Inguinal Adenopathy Neurological: Cranial nerves II-XII grossly intact, Neuro grossly intact Psych/Mental Status: Normal Affect, Appropriate Debridement Note Post-Debridement Measurements/Treatment WC - Nurse 2 - General Ulcer CM Notes Start: 08/17/18 08:32 Freq: Status: Active Protocol: Activity Type Activity Date Activity User E-Sign Co-Sign Detail Recorded Client Recorded Date Recorded By Document 08/17/18 08:51 MW [id number] 08/17/18 08:56 MW Document 08/31/18 08:27 MW [id number] 08/31/18 08:28 MW 08/17/18 08/31/18 08:51 08:27 Wound Center Nurse 2 #1- RT LAT LE -Time 08:52 08:28 -Correct Patient Yes Yes -Correct Side, Site, Position Yes Yes -Correct Procedure Yes Yes -Procedure Performed Yes No -Type of Procedure Debridement -Clinical Debridement Subcutaneous -Post Debridement Size (cm) - Length 1.1 1.2 -Post Debridement Size (cm) - Width 1.0 1.1 -Post Debridement Size (cm) - Depth 0.1 0.1 -Total Square Cm 1.10 1.32 -Wound/Ulcer Outcome Failed Graft Not Healed -Ulcer Cleansing Rinsed/ Rinsed/ Irrigated with Irrigated with Saline Saline -Foul Odor after Cleansing No No -Bioengineered Tissue No No -Type of bioengineered Tissue Apligraf -Expiration Date 08/24/18 -Product Lot Number [id number] -Percent Used 25 -Saline Lot Number [id number] -Bleeding Controlled with Pressure Silver Nitrate -Offloading No No -Treatment Response Procedure Procedure Tolerated Well Tolerated Well Pain Scale: 0-10 Numeric Is Patient Pain Free? Yes Yes Wound debrided: Right lateral lower leg hyper granulation Bleeding Controlled with: Silver Nitrate No debridement was completed today Assessment/Plan Active Problems Lumbar spine tumor (Chronic) Neuropathy of right lower extremity (Chronic) Obesity (BMI 30-39.9) (Chronic) Bilateral lower extremity edema (Chronic) Nonhealing nonsurgical wound limited to breakdown of skin (Acute) Ulcer of right lower extremity with fat layer exposed (Acute) Venous insufficiency (chronic) (peripheral) (Chronic) Assessment: Right lateral lower leg wound nonhealing. Venous insufficiency. Right lower leg edema. Peripheral neuropathy. Tumor on spine Plan: Adaptic to area daily. Follow-up in 1 week. Continue wearing Sid wrap to right lower leg
[2018-09-07 08:16] VITALS: BP 184/90; RESP 18; TEMP 36.2
--- NOTE | 2018-09-07 08:47 | PCM.WC.PN ---
(1) Nonhealing nonsurgical wound limited to breakdown of skin Status: Acute Current Visit: Yes Code(s): T14.8XXA - Other injury of unspecified body region, initial encounter (2) Ulcer of right lower extremity with fat layer exposed Status: Acute Current Visit: Yes Code(s): L97.912 - Non-pressure chronic ulcer of unspecified part of right lower leg with fat layer exposed (3) Bilateral lower extremity edema Status: Chronic Current Visit: Yes Code(s): R60.0 - Localized edema (4) Lumbar spine tumor Status: Chronic Current Visit: Yes Code(s): D49.2 - Neoplasm of unspecified behavior of bone, soft tissue, and skin (5) 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 Came here because he kicked the door with his right leg in January and still not healing. The areas about the size of a quarter. He has been using Silvadene and has been on several antibiotics with his for physician. Patient was referred to us for further care Progress of Wound: Patient was approved for Apligraf #1 applied. He is starting to hyper granulated and we cauterized the tissue and will just use Adaptic this week and follow-up in 1 week to see if he needs further Apligraf's. Today he still hyper granulated skin is moist no redness or infection noted because he is developed new skin I nitro stick to it again we will cover it with just gauze dressing for it to scab on its own. He received puraply #8 total . Patient will be scheduled for a venous study and be referred if necessary to Dr. Delcid if he has any problems. - Physical Exam Vital Signs Temp Pulse Resp BP 97.1 F L 68 18 184/90 H 09/07/18 08:16 08/31/18 08:12 09/07/18 08:16 09/07/18 08:16 General: Oriented x3, Cooperative, Well developed HEENT: Atraumatic, PERRLA Oral: Moist Mucosa Neck: Supple, No JVD Lungs: Clear to auscultation, Normal air movement Cardiovascular: Regular rate, Regular Rhythm Abdomen: Bowel Sounds Present, Soft, Non Tender, No Hepato-splenomegaly Extremities: No clubbing, No edema Skin: Ulcer/ Wound - Right lateral lower leg Wound Measurements and Assessment WC - Nurse 1 - General Ulcer Measurement Start: 08/17/18 08:32 Freq: Status: Active Protocol: Activity Type Activity Date Activity User E-Sign Co-Sign Detail Recorded Client Recorded Date Recorded By Document 09/07/18 08:16 [id number] 09/07/18 08:19 09/07/18 08:16 Wound Center Nurse 1 [Ulcer Assessment] #1- RT LAT LE -Combined with other wound No -Current Size (cm) - Length 1.2 -Current Size (cm) - Width 1.1 -Current Size (cm) - Depth 0.1 -Total Square Cm 1.32 -Date of Last Picture (Recall this 09/07/18 field) -Photo Taken Yes -Epithelialization None Present -Tunneling No -Undermining/Tunneling No -Circular Undermining No -Exudate Amt Medium (34-66%) -Exudate Type Serosanguineous -Wound Margin Distinct, Outline Attached -Granulation Quality Hyper- granulation -Slough/Fibrin Yes -Necrosis Amt Medium (34-66%) -Necrotic Tissue Type Adherent Slough -Structure Exposed None/Limited to Skin Breakdown -Texture (Deisi-wound Skin Appearance) No Abnormality Assessed -Moisture (Deisi-wound Skin Appearance Dry/Scaly ) -Color (Deisi-wound Skin Appearance) No Abnormality Assessed -Temperature (Deisi-wound Skin No Abnormality Appearance) (Pt Warm) -Tenderness on Palpation (Deisi-wound No Skin Appearance) -Ulcer Cleansing Rinsed/ Irrigated with Saline -Foul Odor after Cleansing No -Anesthetic Used 4% Lidocaine Solution [Edema Assessment] -Lower Limb Edema Present Yes -Right Calf (cm) 56.4 -Right Ankle (cm) 32.6 WC - Nurse 2 - General Ulcer CM Notes Start: 08/17/18 08:32 Freq: Status: Active Protocol: Activity Type Activity Date Activity User E-Sign Co-Sign Detail Recorded Client Recorded Date Recorded By Document 09/07/18 08:36 MW [id number] 09/07/18 08:42 MW 09/07/18 08:36 Wound Center Nurse 2 [Procedure/Treatment] #1- RT LAT LE -Time 08:36 -Correct Patient Yes -Correct Side, Site, Position Yes -Correct Procedure Yes -Procedure Performed No -Post Debridement Size (cm) - Length 0 -Post Debridement Size (cm) - Width 0 -Post Debridement Size (cm) - Depth 0 -Total Square Cm 0 -Wound/Ulcer Outcome Healed- Epithelialized -Bleeding Controlled with Silver Nitrate -Offloading No -Treatment Response Procedure Tolerated Well [See Physician Procedure note for Specifics] Pain Scale: 0-10 Numeric [Pain] -Is Patient Pain Free? Yes Musculoskeletal: No Tenderness to Palpation of Joints or Extremities Lymphatic: No Cervical, Supraclavicular, or Inguinal Adenopathy Neurological: Cranial nerves II-XII grossly intact, Neuro grossly intact Psych/Mental Status: Normal Affect, Appropriate Debridement Note Post-Debridement Measurements/Treatment - Nurse 2 - General Ulcer CM Notes Start: 08/17/18 08:32 Freq: Status: Active Protocol: Activity Type Activity Date Activity User E-Sign Co-Sign Detail Recorded Client Recorded Date Recorded By Document 08/17/18 08:51 MW [id number] 08/17/18 08:56 MW Document 08/31/18 08:27 MW [id number] 08/31/18 08:28 MW Document 09/07/18 08:36 MW [id number] 09/07/18 08:42 MW 08/17/18 08/31/18 09/07/18 08:51 08:27 08:36 Wound Center Nurse 2 #1- RT LAT LE -Time 08:52 08:28 08:36 -Correct Patient Yes Yes Yes -Correct Side, Site, Position Yes Yes Yes -Correct Procedure Yes Yes Yes -Procedure Performed Yes No No -Type of Procedure Debridement -Clinical Debridement Subcutaneous -Post Debridement Size (cm) - Length 1.1 1.2 0 -Post Debridement Size (cm) - Width 1.0 1.1 0 -Post Debridement Size (cm) - Depth 0.1 0.1 0 -Total Square Cm 1.10 1.32 0 -Wound/Ulcer Outcome Failed Graft Not Healed Healed- Epithelialized -Ulcer Cleansing Rinsed/ Rinsed/ Irrigated with Irrigated with Saline Saline -Foul Odor after Cleansing No No -Bioengineered Tissue No No -Type of bioengineered Tissue Apligraf -Expiration Date 08/24/18 -Product Lot Number [id number] -Percent Used 25 -Saline Lot Number [id number] -Bleeding Controlled with Pressure Silver Nitrate Silver Nitrate -Offloading No No No -Treatment Response Procedure Procedure Procedure Tolerated Well Tolerated Well Tolerated Well Pain Scale: 0-10 Numeric Is Patient Pain Free? Yes Yes Yes No debridement was completed today Assessment/Plan Active Problems Lumbar spine tumor (Chronic) Neuropathy of right lower extremity (Chronic) Obesity (BMI 30-39.9) (Chronic) Bilateral lower extremity edema (Chronic) Nonhealing nonsurgical wound limited to breakdown of skin (Acute) Ulcer of right lower extremity with fat layer exposed (Acute) Venous insufficiency (chronic) (peripheral) (Chronic) Assessment: Right lateral lower leg wound nonhealing. Venous insufficiency. Right lower leg edema. Peripheral neuropathy. Tumor on spine Plan: Over the area for times 1 week with a dry gauze. Continue wearing Sid wrap to right lower leg. Schedule patient for venous Doppler studies will call with results and referral if necessary patient is discharged from the wound center
--- NOTE | 2018-09-07 08:50 | PN.PCM_ITS ---
(1) Nonhealing nonsurgical wound limited to breakdown of skin Status: Acute Current Visit: Yes Code(s): T14.8XXA - Other injury of unspecified body region, initial encounter (2) Ulcer of right lower extremity with fat layer exposed Status: Acute Current Visit: Yes Code(s): L97.912 - Non-pressure chronic ulcer of unspecified part of right lower leg with fat layer exposed (3) Bilateral lower extremity edema Status: Chronic Current Visit: Yes Code(s): R60.0 - Localized edema (4) Lumbar spine tumor Status: Chronic Current Visit: Yes Code(s): D49.2 - Neoplasm of unspecified behavior of bone, soft tissue, and skin (5) 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 Came here because he kicked the door with his right leg in January and still not healing. The areas about the size of a quarter. He has been using Silvadene and has been on several antibiotics with his for physician. Patient was referred to us for further care Progress of Wound: Patient was approved for Apligraf #1 applied. He is starting to hyper granulated and we cauterized the tissue and will just use Adaptic this week and follow-up in 1 week to see if he needs further Apligraf's. Today he still hyper granulated skin is moist no redness or infection noted because he is developed new skin I nitro stick to it again we will cover it with just gauze dressing for it to scab on its own. He received puraply #8 total . Patient will be scheduled for a venous study and be referred if necessary to Dr. Delcid if he has any problems. - Physical Exam Vital Signs Temp Pulse Resp BP 97.1 F L 68 18 184/90 H 09/07/18 08:16 08/31/18 08:12 09/07/18 08:16 09/07/18 08:16 General: Oriented x3, Cooperative, Well developed HEENT: Atraumatic, PERRLA Oral: Moist Mucosa Neck: Supple, No JVD Lungs: Clear to auscultation, Normal air movement Cardiovascular: Regular rate, Regular Rhythm Abdomen: Bowel Sounds Present, Soft, Non Tender, No Hepato-splenomegaly Extremities: No clubbing, No edema Skin: Ulcer/ Wound - Right lateral lower leg Wound Measurements and Assessment WC - Nurse 1 - General Ulcer Measurement Start: 08/17/18 08:32 Freq: Status: Active Protocol: Activity Type Activity Date Activity User E-Sign Co-Sign Detail Recorded Client Recorded Date Recorded By Document 09/07/18 08:16 [id number] 09/07/18 08:19 09/07/18 08:16 Wound Center Nurse 1 [Ulcer Assessment] #1- RT LAT LE -Combined with other wound No -Current Size (cm) - Length 1.2 -Current Size (cm) - Width 1.1 -Current Size (cm) - Depth 0.1 -Total Square Cm 1.32 -Date of Last Picture (Recall this 09/07/18 field) -Photo Taken Yes -Epithelialization None Present -Tunneling No -Undermining/Tunneling No -Circular Undermining No -Exudate Amt Medium (34-66%) -Exudate Type Serosanguineous -Wound Margin Distinct, Outline Attached -Granulation Quality Hyper- granulation -Slough/Fibrin Yes -Necrosis Amt Medium (34-66%) -Necrotic Tissue Type Adherent Slough -Structure Exposed None/Limited to Skin Breakdown -Texture (Deisi-wound Skin Appearance) No Abnormality Assessed -Moisture (Deisi-wound Skin Appearance Dry/Scaly ) -Color (Deisi-wound Skin Appearance) No Abnormality Assessed -Temperature (Deisi-wound Skin No Abnormality Appearance) (Pt Warm) -Tenderness on Palpation (Deisi-wound No Skin Appearance) -Ulcer Cleansing Rinsed/ Irrigated with Saline -Foul Odor after Cleansing No -Anesthetic Used 4% Lidocaine Solution [Edema Assessment] -Lower Limb Edema Present Yes -Right Calf (cm) 56.4 -Right Ankle (cm) 32.6 WC - Nurse 2 - General Ulcer CM Notes Start: 08/17/18 08:32 Freq: Status: Active Protocol: Activity Type Activity Date Activity User E-Sign Co-Sign Detail Recorded Client Recorded Date Recorded By Document 09/07/18 08:36 MW [id number] 09/07/18 08:42 MW 09/07/18 08:36 Wound Center Nurse 2 [Procedure/Treatment] #1- RT LAT LE -Time 08:36 -Correct Patient Yes -Correct Side, Site, Position Yes -Correct Procedure Yes -Procedure Performed No -Post Debridement Size (cm) - Length 0 -Post Debridement Size (cm) - Width 0 -Post Debridement Size (cm) - Depth 0 -Total Square Cm 0 -Wound/Ulcer Outcome Healed- Epithelialized -Bleeding Controlled with Silver Nitrate -Offloading No -Treatment Response Procedure Tolerated Well [See Physician Procedure note for Specifics] Pain Scale: 0-10 Numeric [Pain] -Is Patient Pain Free? Yes Musculoskeletal: No Tenderness to Palpation of Joints or Extremities Lymphatic: No Cervical, Supraclavicular, or Inguinal Adenopathy Neurological: Cranial nerves II-XII grossly intact, Neuro grossly intact Psych/Mental Status: Normal Affect, Appropriate Debridement Note Post-Debridement Measurements/Treatment - Nurse 2 - General Ulcer CM Notes Start: 08/17/18 08:32 Freq: Status: Active Protocol: Activity Type Activity Date Activity User E-Sign Co-Sign Detail Recorded Client Recorded Date Recorded By Document 08/17/18 08:51 MW [id number] 08/17/18 08:56 MW Document 08/31/18 08:27 MW [id number] 08/31/18 08:28 MW Document 09/07/18 08:36 MW [id number] 09/07/18 08:42 MW 08/17/18 08/31/18 09/07/18 08:51 08:27 08:36 Wound Center Nurse 2 #1- RT LAT LE -Time 08:52 08:28 08:36 -Correct Patient Yes Yes Yes -Correct Side, Site, Position Yes Yes Yes -Correct Procedure Yes Yes Yes -Procedure Performed Yes No No -Type of Procedure Debridement -Clinical Debridement Subcutaneous -Post Debridement Size (cm) - Length 1.1 1.2 0 -Post Debridement Size (cm) - Width 1.0 1.1 0 -Post Debridement Size (cm) - Depth 0.1 0.1 0 -Total Square Cm 1.10 1.32 0 -Wound/Ulcer Outcome Failed Graft Not Healed Healed- Epithelialized -Ulcer Cleansing Rinsed/ Rinsed/ Irrigated with Irrigated with Saline Saline -Foul Odor after Cleansing No No -Bioengineered Tissue No No -Type of bioengineered Tissue Apligraf -Expiration Date 08/24/18 -Product Lot Number [id number] -Percent Used 25 -Saline Lot Number [id number] -Bleeding Controlled with Pressure Silver Nitrate Silver Nitrate -Offloading No No No -Treatment Response Procedure Procedure Procedure Tolerated Well Tolerated Well Tolerated Well Pain Scale: 0-10 Numeric Is Patient Pain Free? Yes Yes Yes No debridement was completed today Assessment/Plan Active Problems Lumbar spine tumor (Chronic) Neuropathy of right lower extremity (Chronic) Obesity (BMI 30-39.9) (Chronic) Bilateral lower extremity edema (Chronic) Nonhealing nonsurgical wound limited to breakdown of skin (Acute) Ulcer of right lower extremity with fat layer exposed (Acute) Venous insufficiency (chronic) (peripheral) (Chronic) Assessment: Right lateral lower leg wound nonhealing. Venous insufficiency. Right lower leg edema. Peripheral neuropathy. Tumor on spine Plan: Over the area for times 1 week with a dry gauze. Continue wearing Sid wrap to right lower leg. Schedule patient for venous Doppler studies will call with results and referral if necessary patient is discharged from the wound center
== END 2018-09-10 23:59 ==
LOC: WC 08:30
PROVIDERS: Family Provider Family Medicine; PCP Family Medicine; Referring Provider Nurse Practitioner; Visit Provider Nurse Practitioner
DX: I87.2 Venous insufficiency (chronic) (peripheral) (principal); G57.91 Unspecified mononeuropathy of right lower limb; R60.0 Localized edema; D49.2 Neoplasm of unspecified behavior of bone, soft tissue, and skin; L97.811 Non-pressure chronic ulcer of other part of right lower leg limited to breakdown of skin
CPT/HCPCS: 15271; 17250; 99213; Q4101; G0463

== ENCOUNTER 2019-11-06 08:18 | Outpatient (RCR) | payer MEDICARE, SELFPAY ==
[2019-11-06 08:49] VITALS: BP 151/74; PULSE 57; RESP 18; TEMP 36.6; BMI 54.9
--- NOTE | 2019-11-06 09:30 | TISS_PTH ---
PATIENT: RUSTY FROST LOC: U#:[id number] AGE/SX: 59/M ROOM: RE11/06/[address]: LORETTA Quiroz : 1960 BED: DIS: 11/09/2019 SPEC #: [id number] RECD: 11/06/19 10:28 STATUS: HOLLY RORO #: [id number] ANA: 11/06/19 09:[address]: Melanie Stroud NP DEPT: SURGICAL PATHOLOGY RECD BY: Francesco Santizo ENTERED: 11/06/19 11:21 SP TYPE: Tissue Bx KARUNA DR: Dr. Magdaleno Regalado MD Tissues: Right leg Procedures: Surgery Specimen Level IV HEADER OPERATION: Tissue excision biopsy right lateral leg ulcer PRE-OP DIAGNOSIS: Nonhealing open wound 1.5 x 1.7 x 0.2 cm TISSUE SUBMITTED: Right lateral leg ulcer biopsy MICROSCOPIC DIAGNOSIS Right lateral leg ulcer, biopsy: Pieces of fibroconnective tissue with fibrinous exudation and granulation tissue reaction. Multiple blood clots. Negative for malignancy. See comment. MOIZ:[email or web address] 11/07/19 COMMENT Correlation with clinical findings and appropriate follow up are necessary. MICROSCOPIC DESCRIPTION Slides are reviewed. GROSS DESCRIPTION Received in fixative is one container labeled with the patient's name and designated right lateral leg ulcer. The specimen consists of two pieces of mcdowell-white soft tissue measuring 0.3 x 0.3 x 0.2 cm and 0.3 x 0.2 x 0.1 cm. Also present in the container are multiple blood clots that in aggregate measure 2 x 1 x 0.1 cm. The entire specimen is submitted in two cassettes as follows: 1 - mcdowell soft tissue, 2 - rest of the specimen containing blood clots. / MOIZ:[email or web address] 11/06/19 TC: 2 CPT: 64958
--- NOTE | 2019-11-06 11:51 | HP.PCM_ITS ---
(1) Nonhealing nonsurgical wound limited to breakdown of skin Status: Acute Current Visit: Yes Code(s): T14.8XXA - Other injury of unspecified body region, initial encounter (2) Ulcer of right lower extremity with fat layer exposed Status: Acute Current Visit: Yes Code(s): L97.912 - Non-pressure chronic ulcer of unspecified part of right lower leg with fat layer exposed (3) Bilateral lower extremity edema Status: Chronic Current Visit: Yes Code(s): R60.0 - Localized edema (4) Lumbar spine tumor Status: Chronic Current Visit: Yes Code(s): D49.2 - Neoplasm of unspecified behavior of bone, soft tissue, and skin (5) Neuropathy of right lower extremity Status: Chronic Current Visit: Yes Code(s): G57.91 - Unspecified mononeuropathy of right lower limb (6) Obesity (BMI 30-39.9) Status: Chronic Current Visit: Yes Code(s): E66.9 - Obesity, unspecified (7) Venous insufficiency (chronic) (peripheral) Status: Chronic Current Visit: No Code(s): I87.2 - Venous insufficiency (chronic) (peripheral) History of Present Illness Date of Service: 11/06/19 Chief Complaint: Right lateral lower leg ulcer and healing History of Wound: 57-year-old white male who walks with a walker and is 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 Came here because he kicked the door with his right leg in January and still not healing. Patient returns because scabbed area ne cindy resolved it is more lateral on his right lower leg and we think that he may be rotating his leg out because of the paralysis that it is causing almost like a pressure area to that area so it is not healing. Patient has been using his Aquacel silver on it that he had leftover but never resolves or closes. Today we will biopsy it and start using Aquacel extra on it to see if that will work to help close. Past Medical History Past Medical History: Chronic Problems Lumbar spine tumor (Chronic) Neuropathy of right lower extremity (Chronic) Obesity (BMI 30-39.9) (Chronic) Bilateral lower extremity edema (Chronic) Venous insufficiency (chronic) (peripheral) (Chronic) Past Medical History: Right lateral lower leg nonhealing wound Allergies/Adverse Reactions: Allergies shrimp Allergy (Verified 04/27/18 10:07) Unknown Home Medications: Ambulatory Orders Medication Instructions Recorded Cholecalciferol (Vitamin D3) 1,000 unit PO DAILY 04/27/18 [Vitamin D3] Ibuprofen/Diphenhydramine Cit 1 each PO DAILY 04/27/18 [Advil Pm Caplet] Multivitamin [Multiple Vitamins] 1 each PO DAILY 04/27/18 Omeprazole [Prilosec] 20 mg PO DAILY 04/27/18 Tamsulosin HCl [Flomax] 0.4 mg PO DAILY 04/27/18 Ascorbic Acid [Vitamin C] 1,000 mg PO DAILY 11/06/19 Calcium Citrate/Vitamin D3 1 ea PO DAILY 11/06/19 [Citracal + D Maximum Caplet] Fluoxetine [Prozac] 10 mg PO DAILY 11/06/19 Naproxen [Naprosyn] 250 mg PO DAILY PRN PRN 11/06/19 Sennosides [Senna] 8.6 mg PO DAILY 11/06/19 Lives: Spouse/ Significant Other Smoking Status: Never smoker Review of Systems Constitutional: Denies: Chills, Fever Eyes: Denies: Blurred vision, Drainage, Pain HEENT: Denies: Difficulty Hearing, Difficulty Swallowing, Sore Throat, Visual Changes Cardiovascular: Denies: Chest Pain, Palpitations, Syncope Respiratory: Denies: Cough, Shortness of Breath Gastrointestinal: Denies: Abdominal Pain, Nausea, Vomiting Genitourinary: Denies: Dysuria, Frequency Musculoskeletal: Denies: Joint Pain, Muscle pain Skin: Reports: Wounds - Right lateral lower leg scab but never resolved. Denies: Jaundice, Rash Neurological: Denies: Balance problems, Change in Speech, Difficulty swallowing, Focal weakness Psychiatric: Denies: Anxiety, Depression Endocrine: Denies: Change in Body Habitus Hematologic/ Lymphatic: Denies: Adenopathy - Physical Exam Vital Signs Temp Pulse Resp BP 97.8 F 57 L 18 151/74 H 11/06/19 08:49 11/06/19 08:49 11/06/19 08:49 11/06/19 08:49 General: Oriented x3, Cooperative, Well developed HEENT: Atraumatic, PERRLA Oral: Moist Mucosa Neck: Supple, No JVD Lungs: Clear to auscultation, Normal air movement Cardiovascular: Regular rate, Regular Rhythm Abdomen: Bowel Sounds Present, Soft, Non Tender, No Hepato-splenomegaly Extremities: No clubbing, No edema Skin: Ulcer/ Wound - Right lateral lower leg nonhealing wound Wound Measurements and Assessment WC - Nurse 1 - General Ulcer Measurement Start: 11/06/19 08:49 Freq: Status: Active Protocol: Activity Type Activity Date Activity User E-Sign Co-Sign Detail Recorded Client Recorded Date Recorded By Document 11/06/19 08:49 RB [id number] 11/06/19 09:04 RB 11/06/19 08:49 Wound Center Nurse 1 [Ulcer Assessment] 2. RLE LAT -Combined with other wound No -Current Size (cm) - Length 2 -Current Size (cm) - Width 1.9 -Current Size (cm) - Depth 0.1 -Total Square Cm 3.8 -Photo Taken Yes -Tunneling No -Undermining/Tunneling No -Circular Undermining No -Exudate Amt None Present -Wound Margin Flat & Intact -Granulation Amt Large (67-100%) -Granulation Quality [place],Red -Slough/Fibrin Yes -Necrosis Amt Small (1-33%) -Necrotic Tissue Type Adherent Slough -Structure Exposed N/A -Texture (Deisi-wound Skin Appearance) Assessed -Moisture (Deisi-wound Skin Appearance Assessed ) -Color (Deisi-wound Skin Appearance) Hemosiderin Staining -Temperature (Deisi-wound Skin No Abnormality Appearance) (Pt Warm) -Tenderness on Palpation (Deisi-wound No Skin Appearance) -Ulcer Cleansing Wound Cleanser -Foul Odor after Cleansing No -Anesthetic Used 5% Lidocaine Gel [Edema Assessment] -Lower Limb Edema Present Yes -Right Calf (cm) 56 -Right Ankle (cm) 33 -Left Calf (cm) 52.5 -Left Ankle (cm) 32 WC - Nurse 2 - General Ulcer CM Notes Start: 11/06/19 08:49 Freq: Status: Active Protocol: Activity Type Activity Date Activity User E-Sign Co-Sign Detail Recorded Client Recorded Date Recorded By Document 11/06/19 09:23 MW [id number] 11/06/19 09:39 MW 11/06/19 09:23 Wound Center Nurse 2 [Procedure/Treatment] 2. RLE LAT -Time 09:24 -Correct Patient Yes -Correct Side, Site, Position Yes -Correct Procedure Yes -Procedure Performed Yes -Type of Procedure Debridement -Clinical Debridement Subcutaneous -Post Debridement Size (cm) - Length 1.5 -Post Debridement Size (cm) - Width 1.7 -Post Debridement Size (cm) - Depth 0.2 -Total Square Cm 2.55 -Wound/Ulcer Outcome Not Healed -Ulcer Cleansing Rinsed/ Irrigated with Saline -Foul Odor after Cleansing No -Bioengineered Tissue No -Bleeding Controlled with Pressure -Offloading No -Treatment Response Procedure Tolerated Well [See Physician Procedure note for Specifics] Pain Scale: 0-10 Numeric [Pain] -Is Patient Pain Free? Yes Musculoskeletal: No Tenderness to Palpation of Joints or Extremities Lymphatic: No Cervical, Supraclavicular, or Inguinal Adenopathy Neurological: Cranial nerves II-XII grossly intact, Neuro grossly intact Psych/Mental Status: Normal Affect, Appropriate Debridement Note Post-Debridement Measurements/Treatment WC - Nurse 2 - General Ulcer CM Notes Start: 11/06/19 08:49 Freq: Status: Active Protocol: Activity Type Activity Date Activity User E-Sign Co-Sign Detail Recorded Client Recorded Date Recorded By Document 11/06/19 09:23 MW [id number] 11/06/19 09:39 MW 11/06/19 09:23 Wound Center Nurse 2 2. RLE LAT -Time 09:24 -Correct Patient Yes -Correct Side, Site, Position Yes -Correct Procedure Yes -Procedure Performed Yes -Type of Procedure Debridement -Clinical Debridement Subcutaneous -Post Debridement Size (cm) - Length 1.5 -Post Debridement Size (cm) - Width 1.7 -Post Debridement Size (cm) - Depth 0.2 -Total Square Cm 2.55 -Wound/Ulcer Outcome Not Healed -Ulcer Cleansing Rinsed/ Irrigated with Saline -Foul Odor after Cleansing No -Bioengineered Tissue No -Bleeding Controlled with Pressure -Offloading No -Treatment Response Procedure Tolerated Well Pain Scale: 0-10 Numeric Is Patient Pain Free? Yes Wound debrided: Right lateral lower leg wound Type of Debridement: Excisional debridement Anesthesia Used: 5% Lidocaine Gel Depth: Down to and including healthy tissue Percentage of wound debrided: 100 Instrument Used: - - Biopsy 5 mm Tissue Removed: Bloody thick subcutaneous tissue Amount of bleeding with debridement: Moderate Bleeding Controlled with: Pressure Patient tolerated procedure well Assessment/Plan Biopsy sent for pathology cultures aerobic and anaerobic obtained Active Problems Lumbar spine tumor (Chronic) Neuropathy of right lower extremity (Chronic) Obesity (BMI 30-39.9) (Chronic) Bilateral lower extremity edema (Chronic) Nonhealing nonsurgical wound limited to breakdown of skin (Acute) Ulcer of right lower extremity with fat layer exposed (Acute) Assessment: Right lateral lower leg wound nonhealing. Venous insufficiency. Right lower leg edema. Peripheral neuropathy. Tumor on spine Plan: Aquacel silver to the area moistened cover with gauze tape. Sid wrap to the right leg. Follow up in 1 week
== END 2019-11-09 23:59 ==
LOC: WC 08:18
PROVIDERS: PCP Family Medicine; Visit Provider Nurse Practitioner
DX: I87.2 Venous insufficiency (chronic) (peripheral) (principal); E66.9 Obesity, unspecified; G57.91 Unspecified mononeuropathy of right lower limb; D49.2 Neoplasm of unspecified behavior of bone, soft tissue, and skin; Z79.899 Other long term (current) drug therapy; L97.811 Non-pressure chronic ulcer of other part of right lower leg limited to breakdown of skin; R60.0 Localized edema
CPT/HCPCS: 11042; 87070; 87075; 87077; 87186; 87205; 88305; 99213; G0463

== ENCOUNTER 2019-12-04 08:00 | Outpatient (RCR) | payer MEDICARE, SELFPAY ==
[2019-11-10 01:11] VITALS: BP 151/74; PULSE 57; RESP 18; TEMP 36.6
[2019-11-13 08:27] VITALS: BP 148/74; PULSE 56; RESP 18; TEMP 36.6; BMI 54.9
--- NOTE | 2019-11-13 09:15 | PCM.WC.PN ---
(1) Ulcer of right lower extremity with fat layer exposed Status: Acute Current Visit: Yes Code(s): L97.912 - Non-pressure chronic ulcer of unspecified part of right lower leg with fat layer exposed (2) Bilateral lower extremity edema Status: Chronic Current Visit: Yes Code(s): R60.0 - Localized edema (3) Lumbar spine tumor Status: Chronic Current Visit: Yes Code(s): D49.2 - Neoplasm of unspecified behavior of bone, soft tissue, and skin (4) Neuropathy of right lower extremity Status: Chronic Current Visit: Yes Code(s): G57.91 - Unspecified mononeuropathy of right lower limb (5) Obesity (BMI 30-39.9) Status: Chronic Current Visit: Yes Code(s): E66.9 - Obesity, unspecified (6) Venous insufficiency (chronic) (peripheral) Status: Chronic Current Visit: Yes Code(s): I87.2 - Venous insufficiency (chronic) (peripheral) (7) Pressure ulcer of lower extremity, stage 2 Status: Acute Current Visit: Yes Code(s): L89.892 - Pressure ulcer of other site, stage 2 Type of Wound Date of Service: 11/13/19 Chief Complaint: Right lateral lower leg ulcer and healing History of Wound: 57-year-old white male who walks with a walker and is 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 Came here because he kicked the door with his right leg in and still not healing. Patient returns because scabbed area never resolved it is more lateral on his right lower leg and we think that he may be rotating his leg out because of the paralysis that it is causing almost like a pressure area to that area so it is not healing. Patient has been using his Aquacel silver on it that he had leftover but never resolves or closes. Today we will biopsy it and start using Aquacel extra on it to see if that will work to help close. Biopsy came back negative for cancer. Patient has started his antibiotic Monday, for his bacteria staph growing in his right lateral lower leg. We will continue the Aquacel extra for now the wound appears to be clean but still gets fibrin cover. More of a pressure area because his leg rotates to the lateral side and I think it rubs. Progress of Wound: The wound today is about the same. May be more shallow than it has been. The biopsy did come back negative for cancer which is good. He did grow staph in his wound so we are currently going to start Bactrim DS twice a day for 14 days. We will continue using Aquacel extra and treat it more as a pressure ulcer now because the way is rotation of his leg we are doing double layer Tubigrip and Sid wrap to get the edema down as best as we can for healing purposes. - Physical Exam Vital Signs Temp Pulse Resp BP 97.8 F 56 L 18 148/74 H 11/13/19 08:27 11/13/19 08:27 11/13/19 08:27 11/13/19 08:27 General: Oriented x3, Cooperative, Well developed HEENT: Atraumatic, PERRLA Oral: Moist Mucosa Neck: Supple, No JVD Lungs: Clear to auscultation, Normal air movement Cardiovascular: Regular rate, Regular Rhythm Abdomen: Bowel Sounds Present, Soft, Non Tender, No Hepato-splenomegaly Extremities: No clubbing, No edema Skin: Ulcer/ Wound - Right lateral lower extremity Wound Measurements and Assessment WC - Nurse 1 - General Ulcer Measurement Start: 11/13/19 08:27 Freq: Status: Active Protocol: Activity Type Activity Date Activity User E-Sign Co-Sign Detail Recorded Client Recorded Date Recorded By Document 11/13/19 08:27 RB [id number] 11/13/19 08:35 RB 11/13/19 08:27 Wound Center Nurse 1 [Ulcer Assessment] 2. RLE LAT -Combined with other wound No -Current Size (cm) - Length 1.7 -Current Size (cm) - Width 1.4 -Current Size (cm) - Depth 0.1 -Total Square Cm 2.38 -Tunneling No -Undermining/Tunneling No -Circular Undermining No -Exudate Amt Small -Exudate Type Serosanguineous -Wound Margin Flat & Intact -Granulation Amt Large (67-100%) -Granulation Quality Red -Slough/Fibrin Yes -Necrosis Amt Small (1-33%) -Necrotic Tissue Type Adherent Slough -Structure Exposed N/A -Texture (Deisi-wound Skin Appearance) Assessed, Scarring -Moisture (Deisi-wound Skin Appearance Assessed ) -Color (Deisi-wound Skin Appearance) Assessed -Temperature (Deisi-wound Skin No Abnormality Appearance) (Pt Warm) -Tenderness on Palpation (Deisi-wound No Skin Appearance) -Ulcer Cleansing Wound Cleanser -Foul Odor after Cleansing No -Anesthetic Used 4% Lidocaine Solution [Edema Assessment] -Lower Limb Edema Present Yes -Right Calf (cm) 53.5 -Right Ankle (cm) 32.2 WC - Nurse 2 - General Ulcer CM Notes Start: 11/13/19 08:27 Freq: Status: Active Protocol: Activity Type Activity Date Activity User E-Sign Co-Sign Detail Recorded Client Recorded Date Recorded By Document 11/13/19 08:57 MW [id number] 11/13/19 08:58 MW 11/13/19 08:57 Wound Center Nurse 2 [Procedure/Treatment] 2. RLE LAT -Time 08:57 -Correct Patient Yes -Correct Side, Site, Position Yes -Correct Procedure Yes -Procedure Performed Yes -Type of Procedure Debridement -Clinical Debridement Subcutaneous -Post Debridement Size (cm) - Length 1.7 -Post Debridement Size (cm) - Width 1.5 -Post Debridement Size (cm) - Depth 0.1 -Total Square Cm 2.55 -Wound/Ulcer Outcome Not Healed -Ulcer Cleansing Rinsed/ Irrigated with Saline -Foul Odor after Cleansing No -Bioengineered Tissue No -Bleeding Controlled with Pressure -Offloading No -Treatment Response Procedure Tolerated Well [See Physician Procedure note for Specifics] Pain Scale: 0-10 Numeric [Pain] -Is Patient Pain Free? Yes Musculoskeletal: No Tenderness to Palpation of Joints or Extremities Lymphatic: No Cervical, Supraclavicular, or Inguinal Adenopathy Neurological: Cranial nerves II-XII grossly intact, Neuro grossly intact Psych/Mental Status: Normal Affect, Appropriate, Alert and oriented to time, place, person, mood and affect Debridement Note Post-Debridement Measurements/Treatment - Nurse 2 - General Ulcer CM Notes Start: 11/13/19 08:27 Freq: Status: Active Protocol: Activity Type Activity Date Activity User E-Sign Co-Sign Detail Recorded Client Recorded Date Recorded By Document 11/13/19 08:57 MW [id number] 11/13/19 08:58 MW 11/13/19 08:57 Wound Center Nurse 2 2. RLE LAT -Time 08:57 -Correct Patient Yes -Correct Side, Site, Position Yes -Correct Procedure Yes -Procedure Performed Yes -Type of Procedure Debridement -Clinical Debridement Subcutaneous -Post Debridement Size (cm) - Length 1.7 -Post Debridement Size (cm) - Width 1.5 -Post Debridement Size (cm) - Depth 0.1 -Total Square Cm 2.55 -Wound/Ulcer Outcome Not Healed -Ulcer Cleansing Rinsed/ Irrigated with Saline -Foul Odor after Cleansing No -Bioengineered Tissue No -Bleeding Controlled with Pressure -Offloading No -Treatment Response Procedure Tolerated Well Pain Scale: 0-10 Numeric Is Patient Pain Free? Yes Wound debrided: Right lateral lower extremity Type of Debridement: Excisional debridement Anesthesia Used: 5% Lidocaine Gel Depth: Down to and including healthy tissue, in the subcutaneous layer Percentage of wound debrided: 100 Instrument Used: 5mm curette Tissue Removed: Fibrin Severity: Fat Layer Exposed Amount of bleeding with debridement: Mild Bleeding Controlled with: Compression and gauze Patient tolerated procedure well Assessment/Plan Active Problems Lumbar spine tumor (Chronic) Neuropathy of right lower extremity (Chronic) Obesity (BMI 30-39.9) (Chronic) Bilateral lower extremity edema (Chronic) Nonhealing nonsurgical wound limited to breakdown of skin (Acute) Ulcer of right lower extremity with fat layer exposed (Acute) Venous insufficiency (chronic) (peripheral) (Chronic) Pressure ulcer of lower extremity, stage 2 (Acute) Assessment: Venous insufficiency. Right lower leg edema. Peripheral neuropathy. Tumor on spine. Pressure ulcer stage II right lateral lower leg Plan: Aquacel extra to the area moistened cover with Adaptic and gauze tape. Double layer Tubigrip. Sid wrap to the right leg. Follow up in 1 week
[2019-11-20 08:15] VITALS: BP 136/72; PULSE 59; RESP 18; TEMP 36.4; BMI 54.9
--- NOTE | 2019-11-20 09:22 | PCM.WC.PN ---
(1) Ulcer of right lower extremity with fat layer exposed Status: Acute Current Visit: Yes Code(s): L97.912 - Non-pressure chronic ulcer of unspecified part of right lower leg with fat layer exposed (2) Bilateral lower extremity edema Status: Chronic Current Visit: Yes Code(s): R60.0 - Localized edema (3) Lumbar spine tumor Status: Chronic Current Visit: Yes Code(s): D49.2 - Neoplasm of unspecified behavior of bone, soft tissue, and skin (4) Neuropathy of right lower extremity Status: Chronic Current Visit: Yes Code(s): G57.91 - Unspecified mononeuropathy of right lower limb (5) Obesity (BMI 30-39.9) Status: Chronic Current Visit: Yes Code(s): E66.9 - Obesity, unspecified (6) Venous insufficiency (chronic) (peripheral) Status: Chronic Current Visit: Yes Code(s): I87.2 - Venous insufficiency (chronic) (peripheral) (7) Pressure ulcer of lower extremity, stage 2 Status: Acute Current Visit: Yes Code(s): L89.892 - Pressure ulcer of other site, stage 2 (8) Chronic ulcer of right leg Status: Chronic Current Visit: Yes Code(s): L97.919 - Non-pressure chronic ulcer of unspecified part of right lower leg with unspecified severity Type of Wound Date of Service: 11/20/19 Chief Complaint: Right lateral lower leg ulcer and healing History of Wound: 57-year-old white male who walks with a walker and is 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 Came here because he kicked the door with his right leg in and still not healing. Patient returns because scabbed area never resolved it is more lateral on his right lower leg and we think that he may be rotating his leg out because of the paralysis that it is causing almost like a pressure area to that area so it is not healing. Patient has been using his Aquacel silver on it that he had leftover but never resolves or closes. Today we will biopsy it and start using Aquacel extra on it to see if that will work to help close. Biopsy came back negative for cancer. Patient has started his antibiotic Monday, for his bacteria staph growing in his right lateral lower leg. We will continue the Aquacel extra for now the wound appears to be clean but still gets fibrin cover. More of a pressure area because his leg rotates to the lateral side and I think it rubs. Progress of Wound: The wound today is slightly smaller and flatter The biopsy did come back negative for cancer which is good. He did grow staph in his wound, he is finishing his Bactrim DS now. We will continue using Aquacel extra and treat it more as a pressure ulcer now because the way is rotation of his leg we are doing double layer Tubigrip and Sid wrap to get the edema down as best as we can for healing purposes. We are also going to apply for skin substitutes for the pressure ulcer. - Physical Exam Vital Signs Temp Pulse Resp BP 97.5 F L 59 L 18 136/72 H 11/20/19 08:15 11/20/19 08:15 11/20/19 08:15 11/20/19 08:15 General: Oriented x3, Cooperative, Well developed HEENT: Atraumatic, PERRLA Oral: Moist Mucosa Neck: Supple, No JVD Lungs: Clear to auscultation, Normal air movement Cardiovascular: Regular rate, Regular Rhythm Abdomen: Bowel Sounds Present, Soft, Non Tender, No Hepato-splenomegaly Extremities: No clubbing, No edema Wound Measurements and Assessment WC - Nurse 1 - General Ulcer Measurement Start: 11/13/19 08:27 Freq: Status: Active Protocol: Activity Type Activity Date Activity User E-Sign Co-Sign Detail Recorded Client Recorded Date Recorded By Document 11/20/19 08:15 DV [id number] 11/20/19 08:47 DV 11/20/19 08:15 Wound Center Nurse 1 [Ulcer Assessment] 2. RLE LAT -Combined with other wound No -Current Size (cm) - Length 1.5 -Current Size (cm) - Width 0.4 -Current Size (cm) - Depth 0.2 -Total Square Cm 0.60 -Photo Taken No -Epithelialization Small 1-33% -Tunneling No -Undermining/Tunneling No -Circular Undermining No -Classification - Thickness Full Thickness without Exposed Support Structure -Change in Wound Grade/Stage No Query Text:If change please identify the Stage/Grade in the comment (ie. S2 G3) -Exudate Amt Medium -Exudate Type Serosanguineous -Wound Margin Flat & Intact -Granulation Amt Small (1-33%) -Granulation Quality Red -Slough/Fibrin Yes -Necrosis Amt Medium (34-66%) -Necrotic Tissue Type Adherent Slough -Structure Exposed None/Limited to Skin Breakdown -Texture (Deisi-wound Skin Appearance) No Abnormality, Assessed -Moisture (Deisi-wound Skin Appearance Assessed, ) Weeping -Color (Deisi-wound Skin Appearance) No Abnormality, Assessed -Temperature (Deisi-wound Skin No Abnormality Appearance) (Pt Warm) -Tenderness on Palpation (Deisi-wound No Skin Appearance) -Ulcer Cleansing Rinsed/ Irrigated with Saline -Foul Odor after Cleansing No -Anesthetic Used 4% Lidocaine Solution [Edema Assessment] -Lower Limb Edema Present Yes -Right Calf (cm) 56.0 -Right Ankle (cm) 31.5 WC - Nurse 2 - General Ulcer CM Notes Start: 11/13/19 08:27 Freq: Status: Active Protocol: Activity Type Activity Date Activity User E-Sign Co-Sign Detail Recorded Client Recorded Date Recorded By Document 11/20/19 08:43 MW [id number] 11/20/19 08:45 MW 11/20/19 08:43 Wound Center Nurse 2 [Procedure/Treatment] 2. RLE LAT -Time 08:44 -Correct Patient Yes -Correct Side, Site, Position Yes -Correct Procedure Yes -Procedure Performed Yes -Type of Procedure Debridement -Clinical Debridement Subcutaneous -Post Debridement Size (cm) - Length 1.4 -Post Debridement Size (cm) - Width 1.4 -Post Debridement Size (cm) - Depth 0.1 -Total Square Cm 1.96 -Wound/Ulcer Outcome Not Healed -Ulcer Cleansing Rinsed/ Irrigated with Saline -Foul Odor after Cleansing No -Bioengineered Tissue No -Bleeding Controlled with Pressure -Offloading No -Treatment Response Procedure Tolerated Well [See Physician Procedure note for Specifics] Pain Scale: 0-10 Numeric [Pain] -Is Patient Pain Free? Yes Musculoskeletal: No Tenderness to Palpation of Joints or Extremities Lymphatic: No Cervical, Supraclavicular, or Inguinal Adenopathy Neurological: Cranial nerves II-XII grossly intact, Neuro grossly intact Psych/Mental Status: Normal Affect, Appropriate, Alert and oriented to time, place, person, mood and affect Debridement Note Post-Debridement Measurements/Treatment WC - Nurse 2 - General Ulcer CM Notes Start: 11/13/19 08:27 Freq: Status: Active Protocol: Activity Type Activity Date Activity User E-Sign Co-Sign Detail Recorded Client Recorded Date Recorded By Document 11/13/19 08:57 MW [id number] 11/13/19 08:58 MW Document 11/20/19 08:43 MW [id number] 11/20/19 08:45 MW 11/13/19 11/20/19 08:57 08:43 Wound Center Nurse 2 2. RLE LAT -Time 08:57 08:44 -Correct Patient Yes Yes -Correct Side, Site, Position Yes Yes -Correct Procedure Yes Yes -Procedure Performed Yes Yes -Type of Procedure Debridement Debridement -Clinical Debridement Subcutaneous Subcutaneous -Post Debridement Size (cm) - Length 1.7 1.4 -Post Debridement Size (cm) - Width 1.5 1.4 -Post Debridement Size (cm) - Depth 0.1 0.1 -Total Square Cm 2.55 1.96 -Wound/Ulcer Outcome Not Healed Not Healed -Ulcer Cleansing Rinsed/ Rinsed/ Irrigated with Irrigated with Saline Saline -Foul Odor after Cleansing No No -Bioengineered Tissue No No -Bleeding Controlled with Pressure Pressure -Offloading No No -Treatment Response Procedure Procedure Tolerated Well Tolerated Well Pain Scale: 0-10 Numeric Is Patient Pain Free? Yes Yes Wound debrided: Right lateral lower leg Type of Debridement: Excisional debridement Anesthesia Used: 5% Lidocaine Gel Depth: Down to and including healthy tissue, in the subcutaneous layer Percentage of wound debrided: 100 Instrument Used: 7mm curette Tissue Removed: Fibrin Severity: Limited To Skin Breakdown Amount of bleeding with debridement: Mild Bleeding Controlled with: Compression and gauze Patient tolerated procedure well Assessment/Plan Active Problems Lumbar spine tumor (Chronic) Neuropathy of right lower extremity (Chronic) Obesity (BMI 30-39.9) (Chronic) Bilateral lower extremity edema (Chronic) Nonhealing nonsurgical wound limited to breakdown of skin (Acute) Ulcer of right lower extremity with fat layer exposed (Acute) Venous insufficiency (chronic) (peripheral) (Chronic) Pressure ulcer of lower extremity, stage 2 (Acute) Chronic ulcer of right leg (Chronic) Assessment: Venous insufficiency. Right lower leg edema. Peripheral neuropathy. Tumor on spine. Chronic pressure ulcer right lateral lower leg. Pressure ulcer stage II right lateral lower leg Plan: Aquacel extra to the area moistened cover with Adaptic and gauze tape. Double layer Tubigrip. Sid wrap to the right leg. Follow up in 1 week
[2019-11-27 08:18] VITALS: BP 147/81; PULSE 82; RESP 18; TEMP 36.3; BMI 54.9
--- NOTE | 2019-11-27 08:44 | PN.PCM_ITS ---
(1) Ulcer of right lower extremity with fat layer exposed Status: Acute Current Visit: Yes Code(s): L97.912 - Non-pressure chronic ulcer of unspecified part of right lower leg with fat layer exposed (2) Bilateral lower extremity edema Status: Chronic Current Visit: Yes Code(s): R60.0 - Localized edema (3) Lumbar spine tumor Status: Chronic Current Visit: Yes Code(s): D49.2 - Neoplasm of unspecified behavior of bone, soft tissue, and skin (4) Neuropathy of right lower extremity Status: Chronic Current Visit: Yes Code(s): G57.91 - Unspecified mononeuropathy of right lower limb (5) Obesity (BMI 30-39.9) Status: Chronic Current Visit: Yes Code(s): E66.9 - Obesity, unspecified (6) Venous insufficiency (chronic) (peripheral) Status: Chronic Current Visit: Yes Code(s): I87.2 - Venous insufficiency (chronic) (peripheral) (7) Pressure ulcer of lower extremity, stage 2 Status: Acute Current Visit: Yes Code(s): L89.892 - Pressure ulcer of other site, stage 2 (8) Chronic ulcer of right leg Status: Chronic Current Visit: Yes Code(s): L97.919 - Non-pressure chronic ulcer of unspecified part of right lower leg with unspecified severity Type of Wound Date of Service: 11/27/19 Chief Complaint: Right lateral lower leg ulcer and healing History of Wound: 57-year-old white male who walks with a walker and is 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 Came here because he kicked the door with his right leg in and still not healing. Patient returns because scabbed area never resolved it is more lateral on his right lower leg and we think that he may be rotating his leg out because of the paralysis that it is causing almost like a pressure area to that area so it is not healing. Patient has been using his Aquacel silver on it that he had leftover but never resolves or closes. Today we will biopsy it and start using Aquacel extra on it to see if that will work to help close. Biopsy came back negative for cancer. Patient has started his antibiotic Monday, for his bacteria staph growing in his right lateral lower leg. We will continue the Aquacel extra for now the wound appears to be clean but still gets fibrin cover. More of a pressure area because his leg rotates to the lateral side and I think it rubs. Progress of Wound: The wound today is slightly smaller and flatter The biopsy did come back negative for cancer which is good. He did grow staph in his wound, he is finished with the Bactrim DS . We will continue using Aquacel extra and treat it more as a pressure ulcer now because the way is rotation of his leg we are doing double layer Tubigrip and Sid wrap to get the edema down as best as we can for healing purposes. We are also going to apply for skin substitutes for the pressure ulcer. - Physical Exam Vital Signs Temp Pulse Resp BP 97.3 F L 82 18 147/81 H 11/27/19 08:18 11/27/19 08:18 11/27/19 08:18 11/27/19 08:18 General: Oriented x3, Cooperative, Well developed HEENT: Atraumatic, PERRLA Oral: Moist Mucosa Neck: Supple, No JVD Lungs: Clear to auscultation, Normal air movement Cardiovascular: Regular rate, Regular Rhythm Abdomen: Bowel Sounds Present, Soft, Non Tender, No Hepato-splenomegaly Extremities: No clubbing, Edema Skin: Ulcer/ Wound - pressure ulcer Wound Measurements and Assessment WC - Nurse 1 - General Ulcer Measurement Start: 11/13/19 08:27 Freq: Status: Active Protocol: Activity Type Activity Date Activity User E-Sign Co-Sign Detail Recorded Client Recorded Date Recorded By Document 11/27/19 08:18 DV [id number] 11/27/19 08:20 DV 11/27/19 08:18 Wound Center Nurse 1 [Ulcer Assessment] 2. RLE LAT -Combined with other wound No -Current Size (cm) - Length 1.4 -Current Size (cm) - Width 1.0 -Current Size (cm) - Depth 0.1 -Total Square Cm 1.40 -Photo Taken No -Epithelialization None Present -Tunneling No -Undermining/Tunneling No -Circular Undermining No -Classification - Thickness Full Thickness without Exposed Support Structure -Exudate Amt Medium -Exudate Type Serosanguineous -Wound Margin Flat & Intact -Granulation Amt Medium (34-66%) -Granulation Quality Red -Slough/Fibrin Yes -Necrosis Amt Medium (34-66%) -Necrotic Tissue Type Adherent Slough -Structure Exposed None/Limited to Skin Breakdown -Texture (Deisi-wound Skin Appearance) Assessed, Localized Edema -Moisture (Deisi-wound Skin Appearance No Abnormality, ) Assessed -Color (Deisi-wound Skin Appearance) No Abnormality, Assessed -Temperature (Deisi-wound Skin No Abnormality Appearance) (Pt Warm) -Tenderness on Palpation (Deisi-wound No Skin Appearance) -Ulcer Cleansing Rinsed/ Irrigated with Saline -Foul Odor after Cleansing No -Anesthetic Used 4% Lidocaine Solution [Edema Assessment] -Lower Limb Edema Present Yes -Right Calf (cm) 54.2 -Right Ankle (cm) 32.0 WC - Nurse 2 - General Ulcer CM Notes Start: 11/13/19 08:27 Freq: Status: Active Protocol: Activity Type Activity Date Activity User E-Sign Co-Sign Detail Recorded Client Recorded Date Recorded By Document 11/27/19 08:30 MW [id number] 11/27/19 08:31 MW 11/27/19 08:30 Wound Center Nurse 2 [Procedure/Treatment] 2. RLE LAT -Time 08:30 -Correct Patient Yes -Correct Side, Site, Position Yes -Correct Procedure Yes -Procedure Performed Yes -Type of Procedure Debridement -Clinical Debridement Subcutaneous -Post Debridement Size (cm) - Length 1.4 -Post Debridement Size (cm) - Width 1.2 -Post Debridement Size (cm) - Depth 0.1 -Total Square Cm 1.68 -Wound/Ulcer Outcome Not Healed -Ulcer Cleansing Rinsed/ Irrigated with Saline -Foul Odor after Cleansing No -Bioengineered Tissue No -Bleeding Controlled with Pressure -Offloading No -Treatment Response Procedure Tolerated Well [See Physician Procedure note for Specifics] Pain Scale: 0-10 Numeric [Pain] -Is Patient Pain Free? Yes Musculoskeletal: No Tenderness to Palpation of Joints or Extremities Lymphatic: No Cervical, Supraclavicular, or Inguinal Adenopathy Neurological: Cranial nerves II-XII grossly intact, Neuro grossly intact Psych/Mental Status: Normal Affect, Appropriate Debridement Note Post-Debridement Measurements/Treatment WC - Nurse 2 - General Ulcer CM Notes Start: 11/13/19 08:27 Freq: Status: Active Protocol: Activity Type Activity Date Activity User E-Sign Co-Sign Detail Recorded Client Recorded Date Recorded By Document 11/13/19 08:57 MW [id number] 11/13/19 08:58 MW Document 11/20/19 08:43 MW [id number] 11/20/19 08:45 MW Document 11/27/19 08:30 MW [id number] 11/27/19 08:31 MW 11/13/19 11/20/19 11/27/19 08:57 08:43 08:30 Wound Center Nurse 2 2. SHADI LAT -Time 08:57 08:44 08:30 -Correct Patient Yes Yes Yes -Correct Side, Site, Position Yes Yes Yes -Correct Procedure Yes Yes Yes -Procedure Performed Yes Yes Yes -Type of Procedure Debridement Debridement Debridement -Clinical Debridement Subcutaneous Subcutaneous Subcutaneous -Post Debridement Size (cm) - Length 1.7 1.4 1.4 -Post Debridement Size (cm) - Width 1.5 1.4 1.2 -Post Debridement Size (cm) - Depth 0.1 0.1 0.1 -Total Square Cm 2.55 1.96 1.68 -Wound/Ulcer Outcome Not Healed Not Healed Not Healed -Ulcer Cleansing Rinsed/ Rinsed/ Rinsed/ Irrigated with Irrigated with Irrigated with Saline Saline Saline -Foul Odor after Cleansing No No No -Bioengineered Tissue No No No -Bleeding Controlled with Pressure Pressure Pressure -Offloading No No No -Treatment Response Procedure Procedure Procedure Tolerated Well Tolerated Well Tolerated Well Pain Scale: 0-10 Numeric Is Patient Pain Free? Yes Yes Yes Wound debrided: R lower leg ulcer Laterality: Right Wound Grade/Stage: Stage II Type of Debridement: Excisional debridement Anesthesia Used: 5% Lidocaine Gel Depth: Down to and including healthy tissue, in the subcutaneous layer Percentage of wound debrided: 100 Instrument Used: 7mm curette Tissue Removed: Ibrin and devitalized tissue Severity: Limited To Skin Breakdown Amount of bleeding with debridement: Mild Bleeding Controlled with: Compression and gauze Patient tolerated procedure well Assessment/Plan Active Problems Lumbar spine tumor (Chronic) Neuropathy of right lower extremity (Chronic) Obesity (BMI 30-39.9) (Chronic) Bilateral lower extremity edema (Chronic) Nonhealing nonsurgical wound limited to breakdown of skin (Acute) Ulcer of right lower extremity with fat layer exposed (Acute) Venous insufficiency (chronic) (peripheral) (Chronic) Pressure ulcer of lower extremity, stage 2 (Acute) Chronic ulcer of right leg (Chronic) Assessment: Venous insufficiency. Right lower leg edema. Peripheral neuropa thy. Tumor on spine. Chronic pressure ulcer right lateral lower leg. Pressure ulcer stage II right lateral lower leg Plan: Aquacel extra to the area moistened cover with Adaptic and gauze tape. Double layer Tubigrip. Sid wrap to the right leg. Still waiting for epi-fix approval. Follow up in 1 week
[2019-12-04 08:28] VITALS: BP 180/88; PULSE 62; RESP 18; TEMP 36.2; BMI 54.9
--- NOTE | 2019-12-04 08:35 | PN.PCM_ITS ---
(1) Ulcer of right lower extremity with fat layer exposed Status: Acute Current Visit: Yes Code(s): L97.912 - Non-pressure chronic ulcer of unspecified part of right lower leg with fat layer exposed (2) Bilateral lower extremity edema Status: Chronic Current Visit: Yes Code(s): R60.0 - Localized edema (3) Lumbar spine tumor Status: Chronic Current Visit: Yes Code(s): D49.2 - Neoplasm of unspecified behavior of bone, soft tissue, and skin (4) Neuropathy of right lower extremity Status: Chronic Current Visit: Yes Code(s): G57.91 - Unspecified mononeuropathy of right lower limb (5) Obesity (BMI 30-39.9) Status: Chronic Current Visit: Yes Code(s): E66.9 - Obesity, unspecified (6) Venous insufficiency (chronic) (peripheral) Status: Chronic Current Visit: Yes Code(s): I87.2 - Venous insufficiency (chronic) (peripheral) (7) Pressure ulcer of lower extremity, stage 2 Status: Acute Current Visit: Yes Code(s): L89.892 - Pressure ulcer of other site, stage 2 (8) Chronic ulcer of right leg Status: Chronic Current Visit: Yes Code(s): L97.919 - Non-pressure chronic ulcer of unspecified part of right lower leg with unspecified severity Type of Wound Date of Service: 12/04/19 Chief Complaint: Right lateral lower leg ulcer and healing History of Wound: 57-year-old white male who walks with a walker and is 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 Came here because he kicked the door with his right leg in and still not healing. Patient returns because scabbed area never resolved it is more lateral on his right lower leg and we think that he may be rotating his leg out because of the paralysis that it is causing almost like a pressure area to that area so it is not healing. Patient has been using his Aquacel silver on it that he had leftover but never resolves or closes. Today we will biopsy it and start using Aquacel extra on it to see if that will work to help close. Biopsy came back negative for cancer. Patient has started his antibiotic Monday, for his bacteria staph growing in his right lateral lower leg. We will continue the Aquacel extra for now the wound appears to be clean but still gets fibrin cover. More of a pressure area because his leg rotates to the lateral side and I think it rubs. Progress of Wound: The wound today is slightly smaller and flatter, it is still more like a standstill will not fill in. The biopsy did come back negative for cancer which is good. He did grow staph in his wound, he is finished with the Bactrim DS . We will start using Promogran for the pressure ulcer stage II on the right lateral leg. We are also going to apply for skin substitutes for the pressure ulcer. - Physical Exam Vital Signs Temp Pulse Resp BP 97.2 F L 62 18 180/88 H 12/04/19 08:28 12/04/19 08:28 12/04/19 08:28 12/04/19 08:28 General: Oriented x3, Cooperative, Well developed HEENT: Atraumatic, PERRLA Oral: Moist Mucosa Neck: Supple, No JVD Lungs: Clear to auscultation, Normal air movement Cardiovascular: Regular rate, Regular Rhythm Abdomen: Bowel Sounds Present, Soft, Non Tender, No Hepato-splenomegaly Extremities: No clubbing, No edema Wound Measurements and Assessment WC - Nurse 1 - General Ulcer Measurement Start: 11/13/19 08:27 Freq: Status: Active Protocol: Activity Type Activity Date Activity User E-Sign Co-Sign Detail Recorded Client Recorded Date Recorded By Document 12/04/19 08:28 DV [id number] 12/04/19 08:31 DV 12/04/19 08:28 Wound Center Nurse 1 [Ulcer Assessment] 2. RLE LAT -Combined with other wound No -Current Size (cm) - Length 1.2 -Current Size (cm) - Width 1.0 -Current Size (cm) - Depth 0.2 -Total Square Cm 1.20 -Date of Last Picture (Recall this 12/04/19 field) -Photo Taken Yes -Epithelialization None Present -Tunneling No -Undermining/Tunneling No -Circular Undermining No -Classification - Thickness Full Thickness without Exposed Support Structure -Exudate Amt Medium -Exudate Type Serosanguineous -Wound Margin Flat & Intact -Granulation Amt Medium (34-66%) -Granulation Quality Red -Slough/Fibrin Yes -Necrosis Amt Medium (34-66%) -Necrotic Tissue Type Adherent Slough -Structure Exposed None/Limited to Skin Breakdown -Texture (Deisi-wound Skin Appearance) Assessed, Localized Edema -Moisture (Deisi-wound Skin Appearance Assessed, ) Weeping -Color (Deisi-wound Skin Appearance) No Abnormality, Assessed -Anesthetic Used 4% Lidocaine Solution [Edema Assessment] -Lower Limb Edema Present Yes -Right Calf (cm) 53.5 -Right Ankle (cm) 32.0 -Left Calf (cm) 52.2 -Left Ankle (cm) 32.0 ABBIE - Nurse 2 - General Ulcer CM Notes Start: 11/13/19 08:27 Freq: Status: Active Protocol: Activity Type Activity Date Activity User E-Sign Co-Sign Detail Recorded Client Recorded Date Recorded By Document 12/04/19 08:29 MW [id number] 12/04/19 08:32 MW 12/04/19 08:29 Wound Center Nurse 2 [Procedure/Treatment] 2. RLE LAT -Time 08:31 -Correct Patient Yes -Correct Side, Site, Position Yes -Correct Procedure Yes -Procedure Performed Yes -Type of Procedure Debridement -Clinical Debridement Subcutaneous -Post Debridement Size (cm) - Length 1.2 -Post Debridement Size (cm) - Width 1.2 -Post Debridement Size (cm) - Depth 0.1 -Total Square Cm 1.44 -Wound/Ulcer Outcome Not Healed -Ulcer Cleansing Rinsed/ Irrigated with Saline -Foul Odor after Cleansing No -Bioengineered Tissue No -Bleeding Controlled with Pressure -Offloading No -Treatment Response Procedure Tolerated Well [See Physician Procedure note for Specifics] Pain Scale: 0-10 Numeric [Pain] -Is Patient Pain Free? Yes Musculoskeletal: No Tenderness to Palpation of Joints or Extremities Lymphatic: No Cervical, Supraclavicular, or Inguinal Adenopathy Neurological: Cranial nerves II-XII grossly intact, Neuro grossly intact Psych/Mental Status: Normal Affect, Appropriate Debridement Note Post-Debridement Measurements/Treatment ABBIE - Nurse 2 - General Ulcer CM Notes Start: 11/13/19 08:27 Freq: Status: Active Protocol: Activity Type Activity Date Activity User E-Sign Co-Sign Detail Recorded Client Recorded Date Recorded By Document 11/13/19 08:57 MW [id number] 11/13/19 08:58 MW Document 11/20/19 08:43 MW [id number] 11/20/19 08:45 MW Document 11/27/19 08:30 MW [id number] 11/27/19 08:31 MW Document 12/04/19 08:29 MW [id number] 12/04/19 08:32 MW 11/13/19 11/20/19 11/27/19 08:57 08:43 08:30 Wound Center Nurse 2 2. [facility] LAT -Time 08:57 08:44 08:30 -Correct Patient Yes Yes Yes -Correct Side, Site, Position Yes Yes Yes -Correct Procedure Yes Yes Yes -Procedure Performed Yes Yes Yes -Type of Procedure Debridement Debridement Debridement -Clinical Debridement Subcutaneous Subcutaneous Subcutaneous -Post Debridement Size (cm) - Length 1.7 1.4 1.4 -Post Debridement Size (cm) - Width 1.5 1.4 1.2 -Post Debridement Size (cm) - Depth 0.1 0.1 0.1 -Total Square Cm 2.55 1.96 1.68 -Wound/Ulcer Outcome Not Healed Not Healed Not Healed -Ulcer Cleansing Rinsed/ Rinsed/ Rinsed/ Irrigated with Irrigated with Irrigated with Saline Saline Saline -Foul Odor after Cleansing No No No -Bioengineered Tissue No No No -Bleeding Controlled with Pressure Pressure Pressure -Offloading No No No -Treatment Response Procedure Procedure Procedure Tolerated Well Tolerated Well Tolerated Well Pain Scale: 0-10 Numeric Is Patient Pain Free? Yes Yes Yes 12/04/19 08:29 Wound Center Nurse 2 2. [facility] LAT -Time 08:31 -Correct Patient Yes -Correct Side, Site, Position Yes -Correct Procedure Yes -Procedure Performed Yes -Type of Procedure Debridement -Clinical Debridement Subcutaneous -Post Debridement Size (cm) - Length 1.2 -Post Debridement Size (cm) - Width 1.2 -Post Debridement Size (cm) - Depth 0.1 -Total Square Cm 1.44 -Wound/Ulcer Outcome Not Healed -Ulcer Cleansing Rinsed/ Irrigated with Saline -Foul Odor after Cleansing No -Bioengineered Tissue No -Bleeding Controlled with Pressure -Offloading No -Treatment Response Procedure Tolerated Well Pain Scale: 0-10 Numeric Is Patient Pain Free? Yes Wound debrided: Right lateral lower leg pressure ulcer Wound Grade/Stage: Stage II Type of Debridement: Excisional debridement Anesthesia Used: 5% Lidocaine Gel Depth: Down to and including healthy tissue, in the subcutaneous layer Percentage of wound debrided: 100 Instrument Used: 5mm curette Tissue Removed: Fibrin devitalized tissue Severity: Limited To Skin Breakdown Amount of bleeding with debridement: None Bleeding Controlled with: Compression and gauze Patient tolerated procedure well Assessment/Plan Active Problems Lumbar spine tumor (Chronic) Neuropathy of right lower extremity (Chronic) Obesity (BMI 30-39.9) (Chronic) Bilateral lower extremity edema (Chronic) Nonhealing nonsurgical wound limited to breakdown of skin (Acute) Ulcer of right lower extremity with fat layer exposed (Acute) Venous insufficiency (chronic) (peripheral) (Chronic) Pressure ulcer of lower extremity, stage 2 (Acute) Chronic ulcer of right leg (Chronic) Assessment: Venous insufficiency. Right lower leg edema. Peripheral neuropathy. Tumor on spine. Chronic pressure ulcer right lateral lower leg. Pressure ulcer stage II right lateral lower leg Plan: Promogran to the area moistened cover with Adaptic and gauze tape. circaids bilateral lower legs. Still waiting for epi-fix approval. Follow up in 1 week
== END 2019-12-10 23:59 ==
LOC: WC 08:00
PROVIDERS: PCP Family Medicine; Visit Provider Nurse Practitioner
DX: I87.2 Venous insufficiency (chronic) (peripheral) (principal); R60.0 Localized edema; E66.9 Obesity, unspecified; D49.2 Neoplasm of unspecified behavior of bone, soft tissue, and skin; L89.892 Pressure ulcer of other site, stage 2; G62.9 Polyneuropathy, unspecified
CPT/HCPCS: 11042

== ENCOUNTER 2020-01-08 08:00 | Outpatient (RCR) | payer MEDICARE, SELFPAY ==
[2019-12-11 00:53] VITALS: BP 180/88; PULSE 62; RESP 18; TEMP 36.2
[2019-12-11 08:11] VITALS: BP 172/98; PULSE 64; RESP 22; TEMP 36.1; BMI 54.9
--- NOTE | 2019-12-11 08:33 | PCM.WC.PN ---
(1) Pressure ulcer of lower extremity, stage 2 Status: Acute Current Visit: Yes Code(s): L89.892 - Pressure ulcer of other site, stage 2 (2) Bilateral lower extremity edema Status: Chronic Current Visit: Yes Code(s): R60.0 - Localized edema (3) Lumbar spine tumor Status: Chronic Current Visit: Yes Code(s): D49.2 - Neoplasm of unspecified behavior of bone, soft tissue, and skin (4) Neuropathy of right lower extremity Status: Chronic Current Visit: Yes Code(s): G57.91 - Unspecified mononeuropathy of right lower limb (5) Obesity (BMI 30-39.9) Status: Chronic Current Visit: Yes Code(s): E66.9 - Obesity, unspecified Type of Wound Date of Service: 12/11/19 Chief Complaint: Right lateral lower leg ulcer and healing History of Wound: 57-year-old white male who walks with a walker and is 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 Came here because he kicked the door with his right leg in and still not healing. Patient returns because scabbed area never resolved it is more lateral on his right lower leg and we think that he may be rotating his leg out because of the paralysis that it is causing almost like a pressure area to that area so it is not healing. Patient has been using his Aquacel silver on it that he had leftover but never resolves or closes. Today we will biopsy it and start using Aquacel extra on it to see if that will work to help close. Biopsy came back negative for cancer. Patient has started his antibiotic Monday, for his bacteria staph growing in his right lateral lower leg. We will continue the Aquacel extra for now the wound appears to be clean but still gets fibrin cover. More of a pressure area because his leg rotates to the lateral side and I think it rubs. Progress of Wound: The wound today is slightly smaller and flatter, The biopsy did come back negative for cancer which is good. He did grow staph in his wound, he is finished with the Bactrim DS . We will start using Promogran for the pressure ulcer stage II on the right lateral leg. We are also going to apply for skin substitutes for the pressure ulcer. - Physical Exam Vital Signs Temp Pulse Resp BP 96.9 F L 64 22 H 172/98 H 12/11/19 08:11 12/11/19 08:11 12/11/19 08:11 12/11/19 08:11 General: Oriented x3, Cooperative, Well developed HEENT: Atraumatic, PERRLA Oral: Moist Mucosa Neck: Supple, No JVD Lungs: Clear to auscultation, Normal air movement Cardiovascular: Regular rate, Regular Rhythm Abdomen: Bowel Sounds Present, Soft, Non Tender, No Hepato-splenomegaly Extremities: No clubbing, No edema Skin: Ulcer/ Wound Wound Measurements and Assessment WC - Nurse 1 - General Ulcer Measurement Start: 12/11/19 08:08 Freq: Status: Active Protocol: Activity Type Activity Date Activity User E-Sign Co-Sign Detail Recorded Client Recorded Date Recorded By Document 12/11/19 08:11 DL [id number] 12/11/19 08:16 DL 12/11/19 08:11 Wound Center Nurse 1 [Ulcer Assessment] 2. RLE LAT -Current Size (cm) - Length 0.9 -Current Size (cm) - Width 0.9 -Current Size (cm) - Depth 0.1 -Total Square Cm 0.81 -Photo Taken No -Exudate Amt Small -Exudate Type Serosanguineous -Wound Margin Distinct, Outline Attached -Granulation Amt Large (67-100%) -Granulation Quality Red -Necrosis Amt Small (1-33%) -Necrotic Tissue Type Adherent Slough -Structure Exposed N/A -Texture (Deisi-wound Skin Appearance) No Abnormality -Moisture (Deisi-wound Skin Appearance No Abnormality ) -Color (Deisi-wound Skin Appearance) Rubor -Temperature (Deisi-wound Skin No Abnormality Appearance) (Pt Warm) -Tenderness on Palpation (Deisi-wound No Skin Appearance) -Ulcer Cleansing Rinsed/ Irrigated with Saline -Foul Odor after Cleansing No -Anesthetic Used 4% Lidocaine Solution [Edema Assessment] -Right Calf (cm) 51.5 -Right Ankle (cm) 31.5 WC - Nurse 2 - General Ulcer CM Notes Start: 12/11/19 08:08 Freq: Status: Active Protocol: Activity Type Activity Date Activity User E-Sign Co-Sign Detail Recorded Client Recorded Date Recorded By Document 12/11/19 08:25 MW [id number] 12/11/19 08:27 MW 12/11/19 08:25 Wound Center Nurse 2 [Procedure/Treatment] 2. RLE LAT -Time 08:25 -Correct Patient Yes -Correct Side, Site, Position Yes -Correct Procedure Yes -Procedure Performed Yes -Type of Procedure Debridement -Clinical Debridement Subcutaneous -Post Debridement Size (cm) - Length 1.0 -Post Debridement Size (cm) - Width 1.1 -Post Debridement Size (cm) - Depth 0.1 -Total Square Cm 1.10 -Wound/Ulcer Outcome Not Healed -Ulcer Cleansing Rinsed/ Irrigated with Saline -Foul Odor after Cleansing No -Bioengineered Tissue No -Bleeding Controlled with Pressure -Offloading No -Treatment Response Procedure Tolerated Well [See Physician Procedure note for Specifics] Pain Scale: 0-10 Numeric [Pain] -Is Patient Pain Free? Yes Musculoskeletal: No Tenderness to Palpation of Joints or Extremities Lymphatic: No Cervical, Supraclavicular, or Inguinal Adenopathy Neurological: Cranial nerves II-XII grossly intact, Neuro grossly intact Psych/Mental Status: Normal Affect, Appropriate Debridement Note Post-Debridement Measurements/Treatment WC - Nurse 2 - General Ulcer CM Notes Start: 12/11/19 08:08 Freq: Status: Active Protocol: Activity Type Activity Date Activity User E-Sign Co-Sign Detail Recorded Client Recorded Date Recorded By Document 12/11/19 08:25 MW [id number] 12/11/19 08:27 MW 12/11/19 08:25 Wound Center Nurse 2 2. RLE LAT -Time 08:25 -Correct Patient Yes -Correct Side, Site, Position Yes -Correct Procedure Yes -Procedure Performed Yes -Type of Procedure Debridement -Clinical Debridement Subcutaneous -Post Debridement Size (cm) - Length 1.0 -Post Debridement Size (cm) - Width 1.1 -Post Debridement Size (cm) - Depth 0.1 -Total Square Cm 1.10 -Wound/Ulcer Outcome Not Healed -Ulcer Cleansing Rinsed/ Irrigated with Saline -Foul Odor after Cleansing No -Bioengineered Tissue No -Bleeding Controlled with Pressure -Offloading No -Treatment Response Procedure Tolerated Well Pain Scale: 0-10 Numeric Is Patient Pain Free? Yes Wound debrided: Pressure ulcer right lateral leg Wound Grade/Stage: Stage II Type of Debridement: Excisional debridement Anesthesia Used: 5% Lidocaine Gel Depth: Down to and including healthy tissue, in the subcutaneous layer Percentage of wound debrided: 100 Instrument Used: 5mm curette Tissue Removed: Ibrin and devitalized tissue Severity: Limited To Skin Breakdown Amount of bleeding with debridement: Mild Bleeding Controlled with: Pressure, Compression and gauze Patient tolerated procedure well Assessment/Plan Active Problems Lumbar spine tumor (Chronic) Neuropathy of right lower extremity (Chronic) Obesity (BMI 30-39.9) (Chronic) Bilateral lower extremity edema (Chronic) Pressure ulcer of lower extremity, stage 2 (Acute) Assessment: Venous insufficiency. Right lower leg edema. Peripheral neuropathy. Tumor on spine. Chronic pressure ulcer right lateral lower leg. Pressure ulcer stage II right lateral lower leg Plan: Promogran to the area moistened cover with Adaptic and gauze tape. circaids bilateral lower legs. Still waiting for epi-fix approval. Follow up in 1 week
[2019-12-18 08:07] VITALS: BP 150/63; PULSE 59; RESP 20; TEMP 36.3; BMI 54.9
--- NOTE | 2019-12-18 08:34 | PCM.WC.PN ---
(1) Pressure ulcer of lower extremity, stage 2 Status: Acute Current Visit: Yes Code(s): L89.892 - Pressure ulcer of other site, stage 2 (2) Bilateral lower extremity edema Status: Chronic Current Visit: Yes Code(s): R60.0 - Localized edema (3) Lumbar spine tumor Status: Chronic Current Visit: Yes Code(s): D49.2 - Neoplasm of unspecified behavior of bone, soft tissue, and skin (4) Neuropathy of right lower extremity Status: Chronic Current Visit: Yes Code(s): G57.91 - Unspecified mononeuropathy of right lower limb (5) Obesity (BMI 30-39.9) Status: Chronic Current Visit: Yes Code(s): E66.9 - Obesity, unspecified Type of Wound Date of Service: 12/18/19 Chief Complaint: Right lateral lower leg ulcer and healing History of Wound: 57-year-old white male who walks with a walker and is 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 Came here because he kicked the door with his right leg in and still not healing. Patient returns because scabbed area never resolved it is more lateral on his right lower leg and we think that he may be rotating his leg out because of the paralysis that it is causing almost like a pressure area to that area so it is not healing. Patient has been using his Aquacel silver on it that he had leftover but never resolves or closes. Today we will biopsy it and start using Aquacel extra on it to see if that will work to help close. Biopsy came back negative for cancer. Patient has started his antibiotic Monday, for his bacteria staph growing in his right lateral lower leg. We will continue the Aquacel extra for now the wound appears to be clean but still gets fibrin cover. More of a pressure area because his leg rotates to the lateral side and I think it rubs. Progress of Wound: The wound today is slightly smaller and flatter, The biopsy did come back negative for cancer which is good. He did grow staph in his wound, he is finished with the Bactrim DS . We will start using Promogran for the pressure ulcer stage II on the right lateral leg. We are also going to apply for skin substitutes for the pressure ulcer. - Physical Exam Vital Signs Temp Pulse Resp BP 97.3 F L 59 L 20 H 150/63 H 12/18/19 08:07 12/18/19 08:07 12/18/19 08:07 12/18/19 08:07 General: Oriented x3, Cooperative, Well developed HEENT: Atraumatic, PERRLA Oral: Moist Mucosa Neck: Supple, No JVD Lungs: Clear to auscultation, Normal air movement Cardiovascular: Regular rate, Regular Rhythm Abdomen: Bowel Sounds Present, Soft, Non Tender, No Hepato-splenomegaly Extremities: No clubbing, Edema, - - Right lateral lower leg Wound Measurements and Assessment WC - Nurse 1 - General Ulcer Measurement Start: 12/11/19 08:08 Freq: Status: Active Protocol: Activity Type Activity Date Activity User E-Sign Co-Sign Detail Recorded Client Recorded Date Recorded By Document 12/18/19 08:07 DL [id number] 12/18/19 08:11 DL 12/18/19 08:07 Wound Center Nurse 1 [Ulcer Assessment] 2. RLE LAT -Current Size (cm) - Length 0.8 -Current Size (cm) - Width 0.8 -Current Size (cm) - Depth 0.1 -Total Square Cm 0.64 -Photo Taken No -Exudate Amt None Present -Wound Margin Distinct, Outline Attached -Granulation Amt Large (67-100%) -Granulation Quality Red -Necrosis Amt Small (1-33%) -Necrotic Tissue Type Adherent Slough -Structure Exposed N/A -Texture (Deisi-wound Skin Appearance) Scarring -Moisture (Deisi-wound Skin Appearance No Abnormality ) -Color (Deisi-wound Skin Appearance) Hemosiderin Staining -Temperature (Deisi-wound Skin No Abnormality Appearance) (Pt Warm) -Tenderness on Palpation (Deisi-wound No Skin Appearance) -Ulcer Cleansing Rinsed/ Irrigated with Saline -Foul Odor after Cleansing No -Anesthetic Used 4% Lidocaine Solution [Edema Assessment] -Right Calf (cm) 52 -Right Ankle (cm) 31.4 WC - Nurse 2 - General Ulcer CM Notes Start: 12/11/19 08:08 Freq: Status: Active Protocol: Activity Type Activity Date Activity User E-Sign Co-Sign Detail Recorded Client Recorded Date Recorded By Document 12/18/19 08:31 MW [id number] 12/18/19 08:32 MW 12/18/19 08:31 Wound Center Nurse 2 [Procedure/Treatment] 2. RLE LAT -Time 08:31 -Correct Patient Yes -Correct Side, Site, Position Yes -Correct Procedure Yes -Procedure Performed Yes -Type of Procedure Debridement -Clinical Debridement Subcutaneous -Post Debridement Size (cm) - Length 1.0 -Post Debridement Size (cm) - Width 0.9 -Post Debridement Size (cm) - Depth 0.1 -Total Square Cm 0.90 -Wound/Ulcer Outcome Not Healed -Ulcer Cleansing Rinsed/ Irrigated with Saline -Foul Odor after Cleansing No -Bioengineered Tissue No -Bleeding Controlled with Pressure -Offloading No -Treatment Response Procedure Tolerated Well [See Physician Procedure note for Specifics] Pain Scale: 0-10 Numeric [Pain] -Is Patient Pain Free? Yes Musculoskeletal: No Tenderness to Palpation of Joints or Extremities Lymphatic: No Cervical, Supraclavicular, or Inguinal Adenopathy Neurological: Cranial nerves II-XII grossly intact, Neuro grossly intact Psych/Mental Status: Normal Affect, Appropriate Debridement Note Post-Debridement Measurements/Treatment WC - Nurse 2 - General Ulcer CM Notes Start: 12/11/19 08:08 Freq: Status: Active Protocol: Activity Type Activity Date Activity User E-Sign Co-Sign Detail Recorded Client Recorded Date Recorded By Document 12/11/19 08:25 MW [id number] 12/11/19 08:27 MW Document 12/18/19 08:31 MW [id number] 12/18/19 08:32 MW 12/11/19 12/18/19 08:25 08:31 Wound Center Nurse 2 2. RLE LAT -Time 08:25 08:31 -Correct Patient Yes Yes -Correct Side, Site, Position Yes Yes -Correct Procedure Yes Yes -Procedure Performed Yes Yes -Type of Procedure Debridement Debridement -Clinical Debridement Subcutaneous Subcutaneous -Post Debridement Size (cm) - Length 1.0 1.0 -Post Debridement Size (cm) - Width 1.1 0.9 -Post Debridement Size (cm) - Depth 0.1 0.1 -Total Square Cm 1.10 0.90 -Wound/Ulcer Outcome Not Healed Not Healed -Ulcer Cleansing Rinsed/ Rinsed/ Irrigated with Irrigated with Saline Saline -Foul Odor after Cleansing No No -Bioengineered Tissue No No -Bleeding Controlled with Pressure Pressure -Offloading No No -Treatment Response Procedure Procedure Tolerated Well Tolerated Well Pain Scale: 0-10 Numeric Is Patient Pain Free? Yes Yes Wound debrided: Right lateral lower leg Wound Grade/Stage: Pressure ulcer grade 2 Type of Debridement: Excisional debridement Anesthesia Used: 5% Lidocaine Gel Depth: Down to and including healthy tissue Percentage of wound debrided: 100 Instrument Used: 5mm curette Tissue Removed: Fibrin devitalized tissue Severity: Limited To Skin Breakdown Amount of bleeding with debridement: Mild Bleeding Controlled with: Compression and gauze Patient tolerated procedure well Assessment/Plan Active Problems Lumbar spine tumor (Chronic) Neuropathy of right lower extremity (Chronic) Obesity (BMI 30-39.9) (Chronic) Bilateral lower extremity edema (Chronic) Pressure ulcer of lower extremity, stage 2 (Acute) Assessment: Venous insufficiency. Right lower leg edema. Peripheral neuropathy. Tumor on spine. Chronic pressure ulcer right lateral lower leg. Pressure ulcer stage II right lateral lower leg Plan: Promogran to the area moistened cover gauze tape. circaids bilateral lower legs. Still waiting for epi-fix approval. Follow up in 1 week
[2019-12-25 08:15] VITALS: BP 115/82; PULSE 61; RESP 20; TEMP 36.6; BMI 54.9
--- NOTE | 2019-12-25 09:10 | PCM.WC.PN ---
(1) Pressure ulcer of lower extremity, stage 2 Status: Acute Current Visit: Yes Code(s): L89.892 - Pressure ulcer of other site, stage 2 (2) Bilateral lower extremity edema Status: Chronic Current Visit: Yes Code(s): R60.0 - Localized edema (3) Lumbar spine tumor Status: Chronic Current Visit: Yes Code(s): D49.2 - Neoplasm of unspecified behavior of bone, soft tissue, and skin (4) Neuropathy of right lower extremity Status: Chronic Current Visit: Yes Code(s): G57.91 - Unspecified mononeuropathy of right lower limb (5) Obesity (BMI 30-39.9) Status: Chronic Current Visit: Yes Code(s): E66.9 - Obesity, unspecified Type of Wound Date of Service: 12/25/19 Chief Complaint: Right lateral lower leg ulcer and healing History of Wound: 57-year-old white male who walks with a walker and is 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 Came here because he kicked the door with his right leg in and still not healing. Patient returns because scabbed area never resolved it is more lateral on his right lower leg and we think that he may be rotating his leg out because of the paralysis that it is causing almost like a pressure area to that area so it is not healing. Patient has been using his Aquacel silver on it that he had leftover but never resolves or closes. Today we will biopsy it and start using Aquacel extra on it to see if that will work to help close. Biopsy came back negative for cancer. Patient has started his antibiotic Monday, for his bacteria staph growing in his right lateral lower leg. We will continue the Aquacel extra for now the wound appears to be clean but still gets fibrin cover. More of a pressure area because his leg rotates to the lateral side and I think it rubs. Progress of Wound: The wound today is slightly smaller and flatter, The biopsy did come back negative for cancer which is good. He did grow staph in his wound, he is finished with the Bactrim DS . Approved for epi-fix #1 will be applied today - Physical Exam Vital Signs Temp Pulse Resp BP 97.9 F 61 20 H 115/82 H 12/25/19 08:15 12/25/19 08:15 12/25/19 08:15 12/25/19 08:15 General: Oriented x3, Cooperative, Well developed HEENT: Atraumatic, PERRLA Oral: Moist Mucosa Neck: Supple, No JVD Lungs: Clear to auscultation, Normal air movement Cardiovascular: Regular rate, Regular Rhythm Abdomen: Bowel Sounds Present, Soft, Non Tender, No Hepato-splenomegaly Extremities: No clubbing, No edema, - - Right lateral lower leg ulcer pressure Wound Measurements and Assessment WC - Nurse 1 - General Ulcer Measurement Start: 12/11/19 08:08 Freq: Status: Active Protocol: Activity Type Activity Date Activity User E-Sign Co-Sign Detail Recorded Client Recorded Date Recorded By Document 12/25/19 08:15 DL [id number] 12/25/19 08:20 DL 12/25/19 08:15 Wound Center Nurse 1 [Ulcer Assessment] 2. RLE LAT -Current Size (cm) - Length 1 -Current Size (cm) - Width 1 -Current Size (cm) - Depth 0.1 -Total Square Cm 1 -Photo Taken No -Exudate Amt Small -Exudate Type Serosanguineous -Wound Margin Distinct, Outline Attached -Granulation Amt Large (67-100%) -Granulation Quality Red -Slough/Fibrin No -Necrosis Amt None Present (0 %) -Structure Exposed N/A -Texture (Deisi-wound Skin Appearance) Scarring -Moisture (Deisi-wound Skin Appearance No Abnormality ) -Color (Deisi-wound Skin Appearance) Erythema,Rubor -Temperature (Deisi-wound Skin No Abnormality Appearance) (Pt Warm) -Tenderness on Palpation (Deisi-wound No Skin Appearance) -Ulcer Cleansing Wound Cleanser -Foul Odor after Cleansing No -Anesthetic Used 4% Lidocaine Solution [Edema Assessment] -Right Calf (cm) 55 -Right Ankle (cm) 34.4 WC - Nurse 2 - General Ulcer CM Notes Start: 12/11/19 08:08 Freq: Status: Active Protocol: Activity Type Activity Date Activity User E-Sign Co-Sign Detail Recorded Client Recorded Date Recorded By Document 12/25/19 08:38 MW [id number] 12/25/19 08:43 MW 12/25/19 08:38 Wound Center Nurse 2 [Procedure/Treatment] 2. RLE LAT -Time 08:39 -Correct Patient Yes -Correct Side, Site, Position Yes -Correct Procedure Yes -Procedure Performed Yes -Type of Procedure Debridement -Clinical Debridement Subcutaneous -Post Debridement Size (cm) - Length 0.8 -Post Debridement Size (cm) - Width 0.8 -Post Debridement Size (cm) - Depth 0.1 -Total Square Cm 0.64 -Wound/Ulcer Outcome Not Healed -Ulcer Cleansing Rinsed/ Irrigated with Saline -Foul Odor after Cleansing No -Bioengineered Tissue Yes -Type of bioengineered Tissue EPIFIX -Expiration Date 08/11/24 -Product Lot Number [id number] -Percent Used 100 -Saline Lot Number [id number] -Bleeding Controlled with Pressure -Offloading No -Treatment Response Procedure Tolerated Well [See Physician Procedure note for Specifics] Pain Scale: 0-10 Numeric [Pain] -Is Patient Pain Free? Yes Musculoskeletal: No Tenderness to Palpation of Joints or Extremities Lymphatic: No Cervical, Supraclavicular, or Inguinal Adenopathy Neurological: Cranial nerves II-XII grossly intact, Neuro grossly intact Psych/Mental Status: Normal Affect, Appropriate, Alert and oriented to time, place, person, mood and affect Debridement Note Post-Debridement Measurements/Treatment WC - Nurse 2 - General Ulcer CM Notes Start: 12/11/19 08:08 Freq: Status: Active Protocol: Activity Type Activity Date Activity User E-Sign Co-Sign Detail Recorded Client Recorded Date Recorded By Document 12/11/19 08:25 MW [id number] 12/11/19 08:27 MW Document 12/18/19 08:31 MW [id number] 12/18/19 08:32 MW Document 12/25/19 08:38 MW [id number] 12/25/19 08:43 MW 12/11/19 12/18/19 12/25/19 08:25 08:31 08:38 Wound Center Nurse 2 2. SHADI LAT -Time 08:25 08:31 08:39 -Correct Patient Yes Yes Yes -Correct Side, Site, Position Yes Yes Yes -Correct Procedure Yes Yes Yes -Procedure Performed Yes Yes Yes -Type of Procedure Debridement Debridement Debridement -Clinical Debridement Subcutaneous Subcutaneous Subcutaneous -Post Debridement Size (cm) - Length 1.0 1.0 0.8 -Post Debridement Size (cm) - Width 1.1 0.9 0.8 -Post Debridement Size (cm) - Depth 0.1 0.1 0.1 -Total Square Cm 1.10 0.90 0.64 -Wound/Ulcer Outcome Not Healed Not Healed Not Healed -Ulcer Cleansing Rinsed/ Rinsed/ Rinsed/ Irrigated with Irrigated with Irrigated with Saline Saline Saline -Foul Odor after Cleansing No No No -Bioengineered Tissue No No Yes -Type of bioengineered Tissue EPIFIX -Expiration Date 08/11/24 -Product Lot Number [id number] -Percent Used 100 -Saline Lot Number [id number] -Bleeding Controlled with Pressure Pressure Pressure -Offloading No No No -Treatment Response Procedure Procedure Procedure Tolerated Well Tolerated Well Tolerated Well Pain Scale: 0-10 Numeric Is Patient Pain Free? Yes Yes Yes Wound debrided: Lateral lower leg pressure ulcer Laterality: Right Wound Grade/Stage: Stage II Type of Debridement: Excisional debridement Anesthesia Used: 5% Lidocaine Gel Depth: Down to and including healthy tissue, in the subcutaneous layer Percentage of wound debrided: 100 Instrument Used: 5mm curette Tissue Removed: Fibrin devitalized tissue Severity: Limited To Skin Breakdown Amount of bleeding with debridement: Mild Bleeding Controlled with: Compression and gauze Patient tolerated procedure well Assessment/Plan Active Problems Lumbar spine tumor (Chronic) Neuropathy of right lower extremity (Chronic) Obesity (BMI 30-39.9) (Chronic) Bilateral lower extremity edema (Chronic) Pressure ulcer of lower extremity, stage 2 (Acute) Assessment: Venous insufficiency. Right lower leg edema. Peripheral neuropathy. Tumor on spine. Chronic pressure ulcer right lateral lower leg. Pressure ulcer stage II right lateral lower leg Plan: Epi-fix #1 applied wound veil gauze dressing. Patient instructed not to touch the enforce if discharge is apparent. Continue circaids bilateral lower legs. Follow up in 1 week
[2020-01-01 08:08] VITALS: BP 132/77; PULSE 207; RESP 22; TEMP 36.4; BMI 54.9
--- NOTE | 2020-01-01 08:36 | PCM.WC.PN ---
(1) Pressure ulcer of lower extremity, stage 2 Status: Acute Current Visit: Yes Code(s): L89.892 - Pressure ulcer of other site, stage 2 (2) Bilateral lower extremity edema Status: Chronic Current Visit: Yes Code(s): R60.0 - Localized edema (3) Lumbar spine tumor Status: Chronic Current Visit: Yes Code(s): D49.2 - Neoplasm of unspecified behavior of bone, soft tissue, and skin (4) Neuropathy of right lower extremity Status: Chronic Current Visit: Yes Code(s): G57.91 - Unspecified mononeuropathy of right lower limb (5) Obesity (BMI 30-39.9) Status: Chronic Current Visit: Yes Code(s): E66.9 - Obesity, unspecified Type of Wound Date of Service: 01/01/20 Chief Complaint: Right lateral lower leg ulcer and healing History of Wound: 57-year-old white male who walks with a walker and is 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 Came here because he kicked the door with his right leg in and still not healing. Patient returns because scabbed area never resolved it is more lateral on his right lower leg and we think that he may be rotating his leg out because of the paralysis that it is causing almost like a pressure area to that area so it is not healing. Patient has been using his Aquacel silver on it that he had leftover but never resolves or closes. Today we will biopsy it and start using Aquacel extra on it to see if that will work to help close. Biopsy came back negative for cancer. Patient has started his antibiotic Monday, for his bacteria staph growing in his right lateral lower leg. We will continue the Aquacel extra for now the wound appears to be clean but still gets fibrin cover. More of a pressure area because his leg rotates to the lateral side and I think it rubs. Progress of Wound: The wound today is slightly smaller and flatter, The biopsy did come back negative for cancer which is good. He did grow staph in his wound, he is finished with the Bactrim DS . Applied epi-fix #2 today, doing well . - Physical Exam Vital Signs Temp Pulse Resp BP 97.5 F L 207 H 22 H 132/77 H 01/01/20 08:08 01/01/20 08:08 01/01/20 08:08 01/01/20 08:08 General: Oriented x3, Cooperative, Well developed HEENT: Atraumatic, PERRLA Oral: Moist Mucosa Neck: Supple, No JVD Lungs: Clear to auscultation, Normal air movement Cardiovascular: Regular rate, Regular Rhythm Abdomen: Bowel Sounds Present, Soft, Non Tender, No Hepato-splenomegaly Extremities: No clubbing, No edema Skin: Ulcer/ Wound - Right lateral lower leg pressure ulcer Wound Measurements and Assessment WC - Nurse 1 - General Ulcer Measurement Start: 12/11/19 08:08 Freq: Status: Active Protocol: Activity Type Activity Date Activity User E-Sign Co-Sign Detail Recorded Client Recorded Date Recorded By Document 01/01/20 08:08 DL [id number] 01/01/20 08:19 DL 01/01/20 08:08 Wound Center Nurse 1 [Ulcer Assessment] 2. RLE LAT -Current Size (cm) - Length 0.8 -Current Size (cm) - Width 0.8 -Current Size (cm) - Depth 0.1 -Total Square Cm 0.64 -Photo Taken No -Exudate Amt Small -Exudate Type Serosanguineous -Wound Margin Distinct, Outline Attached -Granulation Amt Large (67-100%) -Granulation Quality Red -Necrosis Amt None Present (0 %) -Structure Exposed N/A -Texture (Deisi-wound Skin Appearance) Scarring -Moisture (Deisi-wound Skin Appearance Maceration ) -Color (Deisi-wound Skin Appearance) Rubor -Temperature (Deisi-wound Skin No Abnormality Appearance) (Pt Warm) -Tenderness on Palpation (Deisi-wound No Skin Appearance) -Ulcer Cleansing Wound Cleanser -Foul Odor after Cleansing No -Anesthetic Used 4% Lidocaine Solution [Edema Assessment] -Right Calf (cm) 52 -Right Ankle (cm) 33.2 WC - Nurse 2 - General Ulcer CM Notes Start: 12/11/19 08:08 Freq: Status: Active Protocol: Activity Type Activity Date Activity User E-Sign Co-Sign Detail Recorded Client Recorded Date Recorded By Document 01/01/20 08:27 MW [id number] 01/01/20 08:33 MW 01/01/20 08:27 Wound Center Nurse 2 [Procedure/Treatment] 2. RLE LAT -Time 08:31 -Correct Patient Yes -Correct Side, Site, Position Yes -Correct Procedure Yes -Procedure Performed Yes -Type of Procedure Debridement -Clinical Debridement Subcutaneous -Post Debridement Size (cm) - Length 0.7 -Post Debridement Size (cm) - Width 0.7 -Post Debridement Size (cm) - Depth 0.1 -Total Square Cm 0.49 -Wound/Ulcer Outcome Not Healed -Ulcer Cleansing Rinsed/ Irrigated with Saline -Foul Odor after Cleansing No -Bioengineered Tissue Yes -Type of bioengineered Tissue EPIFIX -Expiration Date 08/11/24 -Product Lot Number [id number] -Percent Used 100 -Saline Lot Number [id number] -Bleeding Controlled with Pressure -Offloading No -Treatment Response Procedure Tolerated Well [See Physician Procedure note for Specifics] Pain Scale: 0-10 Numeric [Pain] -Is Patient Pain Free? Yes Musculoskeletal: No Tenderness to Palpation of Joints or Extremities Lymphatic: No Cervical, Supraclavicular, or Inguinal Adenopathy Neurological: Cranial nerves II-XII grossly intact, Neuro grossly intact Psych/Mental Status: Normal Affect, Appropriate Debridement Note Post-Debridement Measurements/Treatment WC - Nurse 2 - General Ulcer CM Notes Start: 12/11/19 08:08 Freq: Status: Active Protocol: Activity Type Activity Date Activity User E-Sign Co-Sign Detail Recorded Client Recorded Date Recorded By Document 12/11/19 08:25 MW [id number] 12/11/19 08:27 MW Document 12/18/19 08:31 MW [id number] 12/18/19 08:32 MW Document 12/25/19 08:38 MW [id number] 12/25/19 08:43 MW Document 01/01/20 08:27 MW [id number] 01/01/20 08:33 MW 12/11/19 12/18/19 12/25/19 08:25 08:31 08:38 Wound Center Nurse 2 2. RLDevan LAT -Time 08:25 08:31 08:39 -Correct Patient Yes Yes Yes -Correct Side, Site, Position Yes Yes Yes -Correct Procedure Yes Yes Yes -Procedure Performed Yes Yes Yes -Type of Procedure Debridement Debridement Debridement -Clinical Debridement Subcutaneous Subcutaneous Subcutaneous -Post Debridement Size (cm) - Length 1.0 1.0 0.8 -Post Debridement Size (cm) - Width 1.1 0.9 0.8 -Post Debridement Size (cm) - Depth 0.1 0.1 0.1 -Total Square Cm 1.10 0.90 0.64 -Wound/Ulcer Outcome Not Healed Not Healed Not Healed -Ulcer Cleansing Rinsed/ Rinsed/ Rinsed/ Irrigated with Irrigated with Irrigated with Saline Saline Saline -Foul Odor after Cleansing No No No -Bioengineered Tissue No No Yes -Type of bioengineered Tissue EPIFIX -Expiration Date 08/11/24 -Product Lot Number [id number] -Percent Used 100 -Saline Lot Number [id number] -Bleeding Controlled with Pressure Pressure Pressure -Offloading No No No -Treatment Response Procedure Procedure Procedure Tolerated Well Tolerated Well Tolerated Well Pain Scale: 0-10 Numeric Is Patient Pain Free? Yes Yes Yes 01/01/20 08:27 Wound Center Nurse 2 2. DAPHNEE LAT -Time 08:31 -Correct Patient Yes -Correct Side, Site, Position Yes -Correct Procedure Yes -Procedure Performed Yes -Type of Procedure Debridement -Clinical Debridement Subcutaneous -Post Debridement Size (cm) - Length 0.7 -Post Debridement Size (cm) - Width 0.7 -Post Debridement Size (cm) - Depth 0.1 -Total Square Cm 0.49 -Wound/Ulcer Outcome Not Healed -Ulcer Cleansing Rinsed/ Irrigated with Saline -Foul Odor after Cleansing No -Bioengineered Tissue Yes -Type of bioengineered Tissue EPIFIX -Expiration Date 08/11/24 -Product Lot Number [id number] -Percent Used 100 -Saline Lot Number [id number] -Bleeding Controlled with Pressure -Offloading No -Treatment Response Procedure Tolerated Well Pain Scale: 0-10 Numeric Is Patient Pain Free? Yes Wound debrided: Lateral lower leg pressure ulcer Wound Grade/Stage: Stage II Type of Debridement: Excisional debridement Anesthesia Used: 5% Lidocaine Gel Depth: Down to and including healthy tissue, in the subcutaneous layer Percentage of wound debrided: 100 Instrument Used: 5mm curette Tissue Removed: Fibrin Severity: Limited To Skin Breakdown Amount of bleeding with debridement: None Bleeding Controlled with: Pressure Patient did not tolerate procedure well Assessment/Plan Active Problems Lumbar spine tumor (Chronic) Neuropathy of right lower extremity (Chronic) Obesity (BMI 30-39.9) (Chronic) Bilateral lower extremity edema (Chronic) Pressure ulcer of lower extremity, stage 2 (Acute) Assessment: Venous insufficiency. Right lower leg edema. Peripheral neuropathy. Tumor on spine. Chronic pressure ulcer right lateral lower leg. Pressure ulcer stage II right lateral lower leg Plan: Epi-fix #2 applied wound veil gauze dressing. Patient instructed not to touch the enforce if discharge is apparent. Continue circaids bilateral lower legs. Follow up in 1 week
[2020-01-08 08:09] VITALS: BP 151/88; PULSE 60; RESP 20; TEMP 35.9; BMI 54.9
--- NOTE | 2020-01-08 08:40 | PCM.WC.PN ---
(1) Pressure ulcer of lower extremity, stage 2 Status: Acute Current Visit: Yes Code(s): L89.892 - Pressure ulcer of other site, stage 2 (2) Bilateral lower extremity edema Status: Chronic Current Visit: Yes Code(s): R60.0 - Localized edema (3) Lumbar spine tumor Status: Chronic Current Visit: Yes Code(s): D49.2 - Neoplasm of unspecified behavior of bone, soft tissue, and skin (4) Neuropathy of right lower extremity Status: Chronic Current Visit: Yes Code(s): G57.91 - Unspecified mononeuropathy of right lower limb (5) Obesity (BMI 30-39.9) Status: Chronic Current Visit: Yes Code(s): E66.9 - Obesity, unspecified Type of Wound Date of Service: 01/08/20 Chief Complaint: Right lateral lower leg ulcer and healing History of Wound: 57-year-old white male who walks with a walker and is 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 Came here because he kicked the door with his right leg in and still not healing. Patient returns because scabbed area never resolved it is more lateral on his right lower leg and we think that he may be rotating his leg out because of the paralysis that it is causing almost like a pressure area to that area so it is not healing. Patient has been using his Aquacel silver on it that he had leftover but never resolves or closes. Today we will biopsy it and start using Aquacel extra on it to see if that will work to help close. Biopsy came back negative for cancer. Patient has started his antibiotic Monday, for his bacteria staph growing in his right lateral lower leg. We will continue the Aquacel extra for now the wound appears to be clean but still gets fibrin cover. More of a pressure area because his leg rotates to the lateral side and I think it rubs. Progress of Wound: The wound today is smaller and flatter, The biopsy did come back negative for cancer which is good. He did grow staph in his wound, he is finished with the Bactrim DS . Applied epi-fix #3 today, doing well,maybe dishcharged next week - Physical Exam Vital Signs Temp Pulse Resp BP 96.7 F L 60 20 H 151/88 H 01/08/20 08:09 01/08/20 08:09 01/08/20 08:09 01/08/20 08:09 General: Oriented x3, Cooperative, Well developed HEENT: Atraumatic, PERRLA Oral: Moist Mucosa Neck: Supple, No JVD Lungs: Clear to auscultation, Normal air movement Cardiovascular: Regular rate, Regular Rhythm Abdomen: Bowel Sounds Present, Soft, Non Tender, No Hepato-splenomegaly Extremities: No clubbing, Edema Skin: Ulcer/ Wound - Lateral lower leg pressure ulcer Wound Measurements and Assessment WC - Nurse 1 - General Ulcer Measurement Start: 12/11/19 08:08 Freq: Status: Active Protocol: Activity Type Activity Date Activity User E-Sign Co-Sign Detail Recorded Client Recorded Date Recorded By Document 01/08/20 08:09 CP [id number] 01/08/20 08:19 CP 01/08/20 08:09 Wound Center Nurse 1 [Ulcer Assessment] 2. RLE LAT -Current Size (cm) - Length 0.6 -Current Size (cm) - Width 0.8 -Current Size (cm) - Depth 0.1 -Total Square Cm 0.48 -Epithelialization Large 67-100% -Tunneling No -Undermining/Tunneling No -Classification - Thickness Full Thickness without Exposed Support Structure -Exudate Amt Small -Exudate Type Serous -Wound Margin Flat & Intact -Granulation Amt Large (67-100%) -Granulation Quality Red -Slough/Fibrin No -Structure Exposed N/A -Texture (Deisi-wound Skin Appearance) No Abnormality -Moisture (Deisi-wound Skin Appearance Maceration ) -Color (Deisi-wound Skin Appearance) No Abnormality -Temperature (Deisi-wound Skin No Abnormality Appearance) (Pt Warm) -Tenderness on Palpation (Deisi-wound No Skin Appearance) -Ulcer Cleansing soap, water -Foul Odor after Cleansing No -Anesthetic Used 4% Lidocaine Solution [Edema Assessment] -Right Calf (cm) 51.5 -Right Ankle (cm) 31.5 WC - Nurse 2 - General Ulcer CM Notes Start: 12/11/19 08:08 Freq: Status: Active Protocol: Activity Type Activity Date Activity User E-Sign Co-Sign Detail Recorded Client Recorded Date Recorded By Document 01/08/20 08:31 MW [id number] 01/08/20 08:38 MW 01/08/20 08:31 Wound Center Nurse 2 [Procedure/Treatment] 2. RLE LAT -Time 08:36 -Correct Patient Yes -Correct Side, Site, Position Yes -Correct Procedure Yes -Procedure Performed Yes -Type of Procedure Debridement -Clinical Debridement Subcutaneous -Post Debridement Size (cm) - Length 0.3 -Post Debridement Size (cm) - Width 0.5 -Post Debridement Size (cm) - Depth 0.1 -Total Square Cm 0.15 -Wound/Ulcer Outcome Not Healed -Ulcer Cleansing Rinsed/ Irrigated with Saline -Foul Odor after Cleansing No -Bioengineered Tissue Yes -Type of bioengineered Tissue EPIFIX -Expiration Date 08/11/24 -Product Lot Number [id number] -Percent Used 100 -Saline Lot Number [id number] -Bleeding Controlled with Pressure -Offloading No -Treatment Response Procedure Tolerated Well [See Physician Procedure note for Specifics] Pain Scale: 0-10 Numeric [Pain] -Is Patient Pain Free? Yes Musculoskeletal: No Tenderness to Palpation of Joints or Extremities Lymphatic: No Cervical, Supraclavicular, or Inguinal Adenopathy Neurological: Cranial nerves II-XII grossly intact, Neuro grossly intact Psych/Mental Status: Normal Affect, Appropriate Debridement Note Post-Debridement Measurements/Treatment WC - Nurse 2 - General Ulcer CM Notes Start: 12/11/19 08:08 Freq: Status: Active Protocol: Activity Type Activity Date Activity User E-Sign Co-Sign Detail Recorded Client Recorded Date Recorded By Document 12/11/19 08:25 MW [id number] 12/11/19 08:27 MW Document 12/18/19 08:31 MW [id number] 12/18/19 08:32 MW Document 12/25/19 08:38 MW [id number] 12/25/19 08:43 MW Document 01/01/20 08:27 MW [id number] 01/01/20 08:33 MW Document 01/08/20 08:31 MW [id number] 01/08/20 08:38 MW 12/11/19 12/18/19 12/25/19 08:25 08:31 08:38 Wound Center Nurse 2 2. RLE LAT -Time 08:25 08:31 08:39 -Correct Patient Yes Yes Yes -Correct Side, Site, Position Yes Yes Yes -Correct Procedure Yes Yes Yes -Procedure Performed Yes Yes Yes -Type of Procedure Debridement Debridement Debridement -Clinical Debridement Subcutaneous Subcutaneous Subcutaneous -Post Debridement Size (cm) - Length 1.0 1.0 0.8 -Post Debridement Size (cm) - Width 1.1 0.9 0.8 -Post Debridement Size (cm) - Depth 0.1 0.1 0.1 -Total Square Cm 1.10 0.90 0.64 -Wound/Ulcer Outcome Not Healed Not Healed Not Healed -Ulcer Cleansing Rinsed/ Rinsed/ Rinsed/ Irrigated with Irrigated with Irrigated with Saline Saline Saline -Foul Odor after Cleansing No No No -Bioengineered Tissue No No Yes -Type of bioengineered Tissue EPIFIX -Expiration Date 08/11/24 -Product Lot Number [id number] -Percent Used 100 -Saline Lot Number [id number] -Bleeding Controlled with Pressure Pressure Pressure -Offloading No No No -Treatment Response Procedure Procedure Procedure Tolerated Well Tolerated Well Tolerated Well Pain Scale: 0-10 Numeric Is Patient Pain Free? Yes Yes Yes 01/01/20 01/08/20 08:27 08:31 Wound Center Nurse 2 2. SHADI LAT -Time 08:31 08:36 -Correct Patient Yes Yes -Correct Side, Site, Position Yes Yes -Correct Procedure Yes Yes -Procedure Performed Yes Yes -Type of Procedure Debridement Debridement -Clinical Debridement Subcutaneous Subcutaneous -Post Debridement Size (cm) - Length 0.7 0.3 -Post Debridement Size (cm) - Width 0.7 0.5 -Post Debridement Size (cm) - Depth 0.1 0.1 -Total Square Cm 0.49 0.15 -Wound/Ulcer Outcome Not Healed Not Healed -Ulcer Cleansing Rinsed/ Rinsed/ Irrigated with Irrigated with Saline Saline -Foul Odor after Cleansing No No -Bioengineered Tissue Yes Yes -Type of bioengineered Tissue EPIFIX EPIFIX -Expiration Date 08/11/24 08/11/24 -Product Lot Number [id number] -Percent Used 100 100 -Saline Lot Number [id number] -Bleeding Controlled with Pressure Pressure -Offloading No No -Treatment Response Procedure Procedure Tolerated Well Tolerated Well Pain Scale: 0-10 Numeric Is Patient Pain Free? Yes Yes Wound debrided: Right lateral lower leg pressure ulcer Type of Debridement: Excisional debridement Anesthesia Used: 5% Lidocaine Gel Depth: Down to and including healthy tissue Percentage of wound debrided: 100 Instrument Used: 3mm curette Tissue Removed: fibrin Severity: Limited To Skin Breakdown Amount of bleeding with debridement: None Bleeding Controlled with: Pressure Patient tolerated procedure well Assessment/Plan Active Problems Lumbar spine tumor (Chronic) Neuropathy of right lower extremity (Chronic) Obesity (BMI 30-39.9) (Chronic) Bilateral lower extremity edema (Chronic) Pressure ulcer of lower extremity, stage 2 (Acute) Assessment: Venous insufficiency. Right lower leg edema. Peripheral neuropathy. Tumor on spine. Chronic pressure ulcer right lateral lower leg. Pressure ulcer stage II right lateral lower leg Plan: Epi-fix #3 applied wound veil gauze dressing. Patient instructed not to touch the enforce if discharge is apparent. Continue circaids bilateral lower legs. Follow up in 1 week
== END 2020-01-09 23:59 ==
LOC: WC 08:00
PROVIDERS: PCP Family Medicine; Visit Provider Nurse Practitioner
DX: L89.892 Pressure ulcer of other site, stage 2 (principal); E66.9 Obesity, unspecified; R60.0 Localized edema; G57.91 Unspecified mononeuropathy of right lower limb; I87.2 Venous insufficiency (chronic) (peripheral)
CPT/HCPCS: 11042; 15271; Q4186

== ENCOUNTER 2020-01-15 08:04 | Outpatient (RCR) | payer MEDICARE, SELFPAY ==
[2020-01-10 00:17] VITALS: BP 151/88; PULSE 60; RESP 20; TEMP 35.9
[2020-01-15 08:08] VITALS: TEMP 36.2; BMI 54.9
[2020-01-15 08:18] VITALS: BP 124/94; PULSE 73; RESP 18; TEMP 36.2; BMI 54.9
--- NOTE | 2020-01-15 08:30 | PN.PCM_ITS ---
(1) Nonhealing nonsurgical wound limited to breakdown of skin Status: Acute Current Visit: Yes Code(s): T14.8XXA - Other injury of unspecified body region, initial encounter (2) Pressure ulcer of lower extremity, stage 2 Status: Acute Current Visit: Yes Code(s): L89.892 - Pressure ulcer of other site, stage 2 (3) Bilateral lower extremity edema Status: Chronic Current Visit: Yes Code(s): R60.0 - Localized edema (4) Lumbar spine tumor Status: Chronic Current Visit: Yes Code(s): D49.2 - Neoplasm of unspecified behavior of bone, soft tissue, and skin (5) Neuropathy of right lower extremity Status: Chronic Current Visit: Yes Code(s): G57.91 - Unspecified mononeuropathy of right lower limb (6) Obesity (BMI 30-39.9) Status: Chronic Current Visit: Yes Code(s): E66.9 - Obesity, unspecified Type of Wound Date of Service: 01/15/20 Chief Complaint: Right lateral lower leg ulcer and healing History of Wound: 57-year-old white male who walks with a walker and is 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 Came here because he kicked the door with his right leg in and still not healing. Patient returns because scabbed area never resolved it is more lateral on his right lower leg and we think that he may be rotating his leg out because of the paralysis that it is causing almost like a pressure area to that area so it is not healing. Patient has been using his Aquacel silver on it that he had leftover but never resolves or closes . Today we will biopsy it and start using Aquacel extra on it to see if that will work to help close. Biopsy came back negative for cancer. Patient has started his antibiotic Monday, for his bacteria staph growing in his right lateral lower leg. We will continue the Aquacel extra for now the wound appears to be clean but still gets fibrin cover. More of a pressure area because his leg rotates to the lateral side and I think it rubs. Progress of Wound: Today the wound is healed patient will be discharged from the wound center. - Physical Exam Vital Signs Temp Pulse Resp BP 97.1 F L 73 18 124/94 H 01/15/20 08:18 01/15/20 08:18 01/15/20 08:18 01/15/20 08:18 General: Oriented x3, Cooperative, Well developed HEENT: Atraumatic, PERRLA Oral: Moist Mucosa Neck: Supple, No JVD Lungs: Clear to auscultation, Normal air movement Cardiovascular: Regular rate, Regular Rhythm Abdomen: Bowel Sounds Present, Soft, Non Tender, No Hepato-splenomegaly Extremities: No clubbing, No edema Skin: Ulcer/ Wound - Right lateral lower leg ulcer the stage II Wound Measurements and Assessment - Nurse 1 - General Ulcer Measurement Start: 01/15/20 08:08 Freq: Status: Active Protocol: Activity Type Activity Date Activity User E-Sign Co-Sign Detail Recorded Client Recorded Date Recorded By Document 01/15/20 08:08 PL [id number] 01/15/20 08:18 PL 01/15/20 08:08 Wound Center Nurse 1 [Ulcer Assessment] 2. RLE LAT -Combined with other wound No -Current Size (cm) - Length 0.4 -Current Size (cm) - Width 0.7 -Current Size (cm) - Depth 0.1 -Total Square Cm 0.28 -Photo Taken No -Epithelialization None Present -Tunneling No -Undermining/Tunneling No -Circular Undermining No -Exudate Amt Small -Exudate Type Serosanguineous -Granulation Amt Large (67-100%) -Granulation Quality [place],Red -Slough/Fibrin Yes -Necrosis Amt Small (1-33%) -Necrotic Tissue Type Adherent Slough -Ulcer Cleansing Rinsed/ Irrigated with Saline -Foul Odor after Cleansing No -Anesthetic Used 4% Lidocaine Solution - Nurse 2 - General Ulcer CM Notes Start: 01/15/20 08:08 Freq: Status: Active Protocol: Activity Type Activity Date Activity User E-Sign Co-Sign Detail Recorded Client Recorded Date Recorded By Document 01/15/20 08:26 MW [id number] 01/15/20 08:27 MW 01/15/20 08:26 Wound Center Nurse 2 [Procedure/Treatment] -Time 08:26 -Correct Patient Yes -Correct Side, Site, Position Yes -Correct Procedure Yes -Procedure Performed No -Post Debridement Size (cm) - Length 0 -Post Debridement Size (cm) - Width 0 -Post Debridement Size (cm) - Depth 0 -Total Square Cm 0 -Wound/Ulcer Outcome Healed- Epithelialized [See Physician Procedure note for Specifics] Pain Scale: 0-10 Numeric [Pain] -Is Patient Pain Free? Yes Musculoskeletal: No Tenderness to Palpation of Joints or Extremities Lymphatic: No Cervical, Supraclavicular, or Inguinal Adenopathy Neurological: Cranial nerves II-XII grossly intact, Neuro grossly intact Psych/Mental Status: Normal Affect, Appropriate Debridement Note Post-Debridement Measurements/Treatment WC - Nurse 2 - General Ulcer CM Notes Start: 01/15/20 08:08 Freq: Status: Active Protocol: Activity Type Activity Date Activity User E-Sign Co-Sign Detail Recorded Client Recorded Date Recorded By Document 01/15/20 08:26 MW [id number] 01/15/20 08:27 MW 01/15/20 08:26 Wound Center Nurse 2 2. SHADI LAT -Time 08:26 -Correct Patient Yes -Correct Side, Site, Position Yes -Correct Procedure Yes -Procedure Performed No -Post Debridement Size (cm) - Length 0 -Post Debridement Size (cm) - Width 0 -Post Debridement Size (cm) - Depth 0 -Total Square Cm 0 -Wound/Ulcer Outcome Healed- Epithelialized Pain Scale: 0-10 Numeric Is Patient Pain Free? Yes Wound debrided: Right lateral lower leg ulcer stage II Wound Grade/Stage: Stage II No debridement was completed today Assessment/Plan Active Problems Lumbar spine tumor (Chronic) Neuropathy of right lower extremity (Chronic) Obesity (BMI 30-39.9) (Chronic) Bilateral lower extremity edema (Chronic) Nonhealing nonsurgical wound limited to breakdown of skin (Acute) Pressure ulcer of lower extremity, stage 2 (Acute) Assessment: Venous insufficiency. Right lower leg edema. Peripheral neuropathy. Tumor on spine. Chronic pressure ulcer right lateral lower leg resolved. Pressure ulcer stage II right lateral lower leg Plan: Discharge from the wound center follow-up as needed
== END 2020-02-09 23:59 ==
LOC: WC 08:04
PROVIDERS: PCP Family Medicine; Visit Provider Nurse Practitioner
DX: Z09 Encounter for follow-up examination after completed treatment for conditions other than malignant neoplasm (principal); I87.2 Venous insufficiency (chronic) (peripheral); R60.0 Localized edema; G57.91 Unspecified mononeuropathy of right lower limb; D49.2 Neoplasm of unspecified behavior of bone, soft tissue, and skin; E66.9 Obesity, unspecified; Z79.899 Other long term (current) drug therapy
CPT/HCPCS: 99213; G0463

== ENCOUNTER 2024-04-30 08:40 | Day surgery (SDC) | payer MEDICARE, SELFPAY ==
[2024-04-30] VITALS (7 sets, daily range): BP systolic 123–153; BP diastolic 61–100; PULSE 59–67; RESP 16–18; TEMP 36.3–36.8; O2SAT 95–100; BMI 58.2
--- NOTE | 2024-04-30 | COLBX_PTH ---
PATIENT: RUSTY FROST LOC: EN U#:[id number] AGE/SX: 63/M ROOM: RE04/30/[address]: Dr. Tony Avelar MD : 1960 BED: DIS: 04/30/2024 SPEC #: [id number] RECD: 04/30/24 13:14 STATUS: HOLLY RORO #: [id number] ANA: 04/30/24 00:[address]: Tnoy Avelar DEPT: SURGICAL PATHOLOGY RECD BY: Raymundo Riggs ENTERED: 04/30/24 13:14 SP TYPE: COLON BX OTHR DR: Dr. Magdaleno Regalado MD Tissues: Ascending colon Procedures: Surgery Specimen Level IV HEADER OPERATION: Colonoscopy, polypectomy PRE-OP DIAGNOSIS: Positive colorectal cancer screening using Cologuard test TISSUE SUBMITTED: Ascending colon polyp MICROSCOPIC DIAGNOSIS Ascending colon polyp, polypectomy: Fragments of inflammatory polyp. SJ.mr 05/01/2024 MICROSCOPIC DESCRIPTION Slides are reviewed. GROSS DESCRIPTION Received in fixative is one container labeled with the patient's name and designated Ascending colon polyp. The specimen consists of multiple irregular fragments of light mcdowell soft tissue that in aggregate measure 1.0 x 0.5 x 0.2 cm. The specimen is totally submitted in one cassette. 04/30/2024 TC:5 CPT:92500
--- NOTE | 2024-04-30 09:25 | HP.PCM_ITS ---
History and Physical Date of Admission: 04/30/24 Intake Vital Signs 04/01/2413:16 Height 6 ft Weight: 450 lb 8 oz BMI 61.1 BP 135/81 H Blood Pressure Location Rt brachial Position Sitting Respiration 18 Pulse 65 Pulse Source Monitor Temp 97.7 F L Temp Source Temporal Pulse Oximetry (%) 98 Oxygen Delivery Method room air Intake Visit Reasons: POSITIVE COLOGUARD Chief Complaint: positive cologuard Is patient in pain?: No Allergies shrimp Allergy (Verified 04/01/24 13:17) Unknown Medications ?Medication ?Instructions ?Recorded ?Confirmed ?Type cholecalciferol (vitamin D3) 25 1,000 unit PO DAILY 04/27/18 04/01/24 History mcg (1,000 unit) capsule (Vitamin D3) ibuprofen-diphenhydramine citrate 1 ea PO DAILY 04/27/18 04/01/24 History 200 mg-38 mg tablet (Advil PM) multivitamin (Multiple Vitamins 1 ea PO DAILY 04/27/18 04/01/24 History tablet) omeprazole 20 mg capsule,delayed 20 mg PO DAILY 04/27/18 04/01/24 History release tamsulosin 0.4 mg capsule (Flomax) 0.4 mg PO DAILY 04/27/18 04/01/24 History Sennosides [Senna] 8.6 mg PO DAILY 11/06/19 04/01/24 History ascorbic acid (vitamin C) 1,000 mg 1,000 mg PO DAILY 11/06/19 04/01/24 History tablet calcium citrate 315 mg 1 ea PO DAILY 11/06/19 04/01/24 History calcium-vitamin D3 6.25 mcg (250 unit) tablet fluoxetine 10 mg capsule 10 mg PO DAILY 11/06/19 04/01/24 History naproxen 250 mg tablet 250 mg PO DAILY PRN PRN Pain Score 11/06/19 04/01/24 History 1-06/20 Have you fallen in the past year?: No PFSH Medical History (Updated 04/01/24 @ 13:16 by Huma Jackson LPN) H/O nasal polyp Surgical History (Updated 04/01/24 @ 13:16 by Huma Jackson LPN) H/O laminectomy Social History (Updated 04/01/24 @ 13:16 by Huma Manuel, PAPER SALES REPRESENTATIVE) Smoking Status: Never smoker alcohol intake: never substance use type: does not use HPI HPI HPI: Patient is a 63-year-old male here for positive Cologuard. He has never had a colonoscopy in the past. He has had several Cologuard's in the past which have been normal. He denies gross blood in the stool or abdominal pain. He does say he has constipation. ROS General General: Yes weight change; No appetite, fatigue, colon cancer, breast cancer or weakness HEENT HEENT: Yes eye surgery; No difficulty swallowing, eye injury, swollen glands or hoarseness Endo Endocrine: No thyroid disease, diabetes mellitus, thyroid cancer, Hair loss, heat intolerance or cold intolerance Skin Skin: Yes rash; No changing moles Musc Musculoskeletal: Yes back problems; No arthritis, rheumatoid arthritis, gout or joint pain Cardio Cardiovascular: Yes high blood pressure; No murmur, pacemaker, heart disease, atrial fibrillation, heart attack, heart stent, palpitations, shortness of breat with exertion or chest pain Psych Psychiatric: Yes anxiety; No depression or hearing voices Resp Respiratory: Yes shortness of breath, Yes sleep apnea, No cough, No COPD, No asthma, No emphysema and No wheezing Gastro Gastrointestinal: No abdominal pain, No nausea or vomiting, No diarrhea, Yes constipation, No blood in stool, No acid reflux, No hemorrhoids, No ulcers, No gallbladder problem and No black,tarry stools Jamie Hematologic: No blood thinners, No blood disorders, No bleeding, No anemia and No blood clots Neuro Neurologic: No numbness, No tingling and No weakness Exam Const General: cooperative Orientation: alert and oriented x3 HENMT Head: normal to inspection Neck Neck: normal visual inspection and full ROM Chest Chest palpation & inspection: normal inspection of the chest Resp Effort & Inspection: normal respiratory effort Auscultation: clear to auscultation bilaterally Cardio Rate: regular rate Rhythm: regular rhythm GI Inspection: non-distended Palpation: soft and nontender Skin General: no rashes or lesions noted Neuro General: patient alert and patient oriented x3 Extrem General: full ROM Psych Appearance: grossly normal Mental Status: mental status grossly normal Assessment and Plan Assessment and Plan (1) Positive colorectal cancer screening using Cologuard test: Status: Acute Plan: I explained endoscopy in detail to the patient. I explained the risks including but not limited to stroke or heart attack with anesthesia, perforation of the GI tract, bleeding, infection. I explained that any of these could necessitate further emergency surgery. The patient understands and all questions were answered sufficiently. The patient wishes to proceed with procedure. Tony Avelar MD Pager: [facility] [address] [place] [address], [address] [place] [address] Office: I have examined the patient and the H&P has been reviewed. There are no clinical changes since date of exam.
[2024-04-30] MEDS: Lactated Ringers 1,000 ML 15 ML IV (09:26)
--- NOTE | 2024-04-30 09:34 | PCM.PRE.AN2 ---
ASA Classification* ASA Classification ASA Classification: 3 Assessment & Plan Anesthesia* Anesthesia Assessment Anesthesia Assessment: Discussed sedation and/or anesthesia options, risks, benefits, and alternatives with patient/parents/legal guardian/POA. Questions invited. The patient/parents/legal guardian/POA seems to understand and agrees to proceed with anesthesia plan. Reviewed the physical assessment, medical history, allergy history and patient home medications list prior to surgery/procedure/anesthetic and documented any changes. Performed airway and anesthesia risk assessments. Anesthesia Type Anesthesia Type: MAC History Source History Obtained from:: Patient and Chart Anesthesia Focused Assessment* Temperature: 97.5 F Pulse Rate: 59 Blood Pressure: 150/61 Respiratory Rate: 18 Pulse Ox: 100 Oxygen Delivery Method: Room Air Airway Assessment Mouth opens: >3 cm Mallampati Score: II Teeth Condition: Missing (Missing right lower molar. 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 When Was Last Pacemaker Check QUESTION #4 FULL TEXT: You/Your Family Experience fever (hyperthermia) with Anesthesia Last Oral Intake Last Oral intake: Last Oral Intake NPO since 23:00 04/30/24 09:14 Meds taken in AM with sips of No 04/30/24 09:14 water? 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 Female No 04/25/24 10:37 HX of Motion Sickness No 04/25/24 10:37 HX of N/V After Surgery No 04/25/24 10:37 Non-Smoker Yes 04/25/24 10:37 Duration of Surgery greater No 04/25/24 10:37 than 60 minutes Number of Risk Factors 1 04/25/24 10:37 PONV Score Low Risk 04/25/24 10:37 Height & Weight Height & Weight: Anesthesia: Height & Weight Height 6 ft 04/30/24 09:14 Weight: 194.773 kg 04/30/24 09:14 Body Mass Index (BMI) 58.2 04/30/24 09:14 Respiratory Assessment Respiratory Assessment - dermatology teacher: Respiratory Tract Infection Hx - dermatology teacher Hx Respiratory Tract Infection No 04/25/24 10:37 STOP Sleep Apnea STOP Sleep Apnea - dermatology teacher: STOP Sleep Apnea - dermatology teacher Hx Hypertension Yes: CONTROLLED WITH MED 04/25/24 10:37 Hx Sleep Apnea Yes 04/25/24 10:37 CPAP Yes 04/25/24 10:37 BIPAP No 04/25/24 10:37 Do you snore loudly (louder than talking or can be heard Do you often feel tired/ fatigued/ sleepy during daytime? Has anyone observed you stop breathing during sleep? STOP Results Positive 04/25/24 10:37 QUESTION #5 FULL TEXT : Do you snore loudly (louder than talking or can be heard through closed doors)? 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 Specify any problems Hx of Preganancy in last 3 N/A 04/25/24 10:37 Months Nurse Filling Out Transfusion NBUCHER 04/25/24 10:37 & Questions: Date: 04/25/24 04/25/24 10:37 Time: 10:40 04/25/24 10:37 Patient unable to answer at this time (ie. confused, unrespo /Reproduction History /Reproductive History - dermatology teacher: /Reproductive Hx- dermatology teacher Hx Now No 04/25/24 10:37 Gestational Age (in weeks): EDC: Hx Hx Para Hx Section SAB No 04/25/24 10:37 Active Medications Active Medications: Current Medications Generic Name Dose Route Start Last Admin Trade Name Freq PRN Reason Stop Dose Admin Lactated Ringer's 1,000 mls @ 15 mls/hr 04/30/24 09:00 04/30/24 09:26 IV 15 mls/hr .Q48H FREDA Administration PFSH Medical History Wears glasses Anxiety Rash GERD (gastroesophageal reflux disease) Heartburn Gastric reflux Spinal cord tumor Walker as ambulation aid CPAP (continuous positive airway pressure) dependence Sleep apnea Non-smoker Shortness of breath on exertion History of edema H/O nasal polyp Home Medications ?Medication ?Instructions ?Recorded ?Last Taken ?Type cholecalciferol (vitamin D3) 25 1,000 unit PO DAILY 04/27/18 04/28/24 History mcg (1,000 unit) capsule (Vitamin D3) multivitamin (Multiple Vitamins 1 ea PO DAILY 04/27/18 04/28/24 History tablet) omeprazole 20 mg capsule,delayed 20 mg PO DAILY 04/27/18 04/29/24 History release tamsulosin 0.4 mg capsule (Flomax) 0.4 mg PO DAILY 04/27/18 04/29/24 History Sennosides [Senna] 8.6 mg PO DAILY 11/06/19 04/28/24 History ascorbic acid (vitamin C) 1,000 mg 1,000 mg PO DAILY 11/06/19 04/28/24 History tablet calcium citrate 315 mg 1 ea PO DAILY 11/06/19 04/28/24 History calcium-vitamin D3 6.25 mcg (250 unit) tablet fluoxetine 10 mg capsule 20 mg PO DAILY 11/06/19 04/29/24 History fluconazole 150 mg tablet 150 mg PO WE 04/25/24 04/24/24 History lisinopril 10 mg tablet 10 mg PO DAILY 04/25/24 04/29/24 History oxycodone-acetaminophen 5 mg-325 1 tab PO 4X/DAY PRN PRN pain 04/25/24 04/28/24 History mg tablet Allergy/AdvReac Type Severity Reaction Status Date / Time shrimp Allergy Unknown Verified 04/30/24 09:06 Surgical History History of cataract extraction with lens replacement History of eye surgery H/O laminectomy (~2010) Social History Smoking Status: Never smoker alcohol intake: never substance use type: does not use Review of Systems (Anesthesia) ROS Narrative System reviewed and no additional complaints, except as documented.
--- NOTE | 2024-04-30 10:12 | OP.CCLET_ITS ---
04/30/2024 Magdaleno Regalado Re : Colonoscopy procedure for Flo Ching Fabricio This procedure was performed on Tuesday, April 30, 2024. My impressions and recommendations are as follows: Impressions : - One small polyp in the ascending colon, removed with a hot snare. Resected and retrieved. - The examination was otherwise normal on direct and retroflexion views. Recommendations : - Discharge patient to home. - Resume previous diet. - Continue present medications. - Await pathology results. - Repeat colonoscopy in 5 years for surveillance based on pathology results. My findings are described in the full procedure note, which is enclosed. If I can be of further assistance, please feel free to contact me at Doctor phone number(s): , Work: . Sincerely, Tony Avelar MD 04/30/2024 10:11:38 AM This report has been signed electronically.
--- NOTE | 2024-04-30 10:12 | OP.COLON_ITS ---
Patient Name: Flo Cornejo Procedure Date: 04/30/2024 9:32 AM Date of : 1960 Age: 63 Procedure: Colonoscopy Indications: Positive Cologuard test Providers: Tony Avelar MD Medicines: Propofol per Anesthesia Patient Profile: Last Colonoscopy: none. The patient's first colonoscopy is today. Complications: No immediate complications. Estimated blood loss: Minimal. Procedure: Pre-Anesthesia Assessment: - Prior to the procedure, a History and Physical was performed, and patient medications and allergies were reviewed. The patient's tolerance of previous anesthesia was also reviewed. The risks and benefits of the procedure and the sedation options and risks were discussed with the patient. All questions were answered, and informed consent was obtained. Prior Anticoagulants: The patient has taken no anticoagulant or antiplatelet agents. After reviewing the risks and benefits, the patient was deemed in satisfactory condition to undergo the procedure. After I obtained informed consent, the scope was passed under direct vision. Throughout the procedure, the patient's blood pressure, pulse, and oxygen saturations were monitored continuously. The Colonoscope was introduced through the anus and advanced to the cecum, identified by appendiceal orifice and ileocecal valve. The colonoscopy was performed without difficulty. The patient tolerated the procedure well. The quality of the bowel preparation was adequate to identify polyps greater than 5 mm in size. Scope In: 9:55:22 AM Scope Withdrawal Time 0 hours 6 minutes 29 seconds Scope Out: 10:09:35 AM Total Procedure Duration Time 0 hours 14 minutes 13 seconds Findings: A small polyp was found in the ascending colon. The polyp was removed with a hot snare. Resection and retrieval were complete. The exam was otherwise without abnormality on direct and retroflexion views. Impression: - One small polyp in the ascending colon, removed with a hot snare. Resected and retrieved. - The examination was otherwise normal on direct and retroflexion views. Recommendation: - Discharge patient to home. - Resume previous diet. - Continue present medications. - Await pathology results. - Repeat colonoscopy in 5 years for surveillance based on pathology results. Procedure Code(s): --- Professional --- 55287, Colonoscopy, flexible; with removal of tumor(s), polyp(s), or other lesion(s) by snare technique Diagnosis Code(s): --- Professional --- D12.2, Benign neoplasm of ascending colon R19.5, Other fecal abnormalities CPT copyright 2021 [employer]. All rights reserved. The codes documented in this report are preliminary and upon kayak maker review may be revised to meet current compliance requirements. Tony Avelar MD 04/30/2024 10:11:38 AM This report has been signed electronically. Number of Addenda: 0 Note Initiated On: 04/30/2024 9:32 AM
--- NOTE | 2024-04-30 10:23 | PCM.POST.ANE ---
Anesthesia: Postop Eval I Current Vital Signs Temperature: 97.3 F Pulse Rate: 66 Blood Pressure: 145/100 Respiratory Rate: 16 Pulse Ox: 97 Oxygen Delivery Method: Room Air Assessment Airway patent: Yes Spontaneous unlabored respirations: Yes Mental status: Awake and Calm nausea: No Vomiting: No Anesthesia Complication: No Fluid Hydration Crystalloid volume administer (ml): 300 Total IV fluid infused: 300 Progress Note Anesthesia document: Postop Eval 1 completed: Yes
--- NOTE | 2024-04-30 16:33 | PCM.POSTANE2 ---
Anesthesia Postop Eval I Sum Postop Eval Completion status Anesthesia document: Postop Eval 1 completed: Yes Anesthesia Postop Eval I Summary Anesthesia Postop Eval I Summary: Anesthesia Postop Eval I: Assessment Summary Airway patent Yes 04/30/24 10:23 [email or web address] Spontaneous unlabored Yes 04/30/24 10:23 [email or web address] respirations Mental status Awake,Calm 04/30/24 10:23 [email or web address] nausea No 04/30/24 10:23 [email or web address] Vomiting No 04/30/24 10:23 [email or web address] Anesthesia Postop Eval I: Fluid Summary Crystalloid volume administer 300 04/30/24 10:23 [email or web address] (ml) Colloids volume administered ( ml) Blood Product volume administered (ml) Total IV fluid infused 300 04/30/24 10:23 [email or web address] Anesthesia Postop Eval I: Summary Notes Anesthesia Complication No 04/30/24 10:23 [email or web address] Anesthesia Complication Comment: Post-operative progress note Anesthesia: Postop Eval II Evaluation Mental status: Awake and Calm Pain Level: 0 nausea: No Vomiting: No Complications Anesthesia Complication: No
== END 2024-04-30 10:48 | disposition home or self-care (01) ==
LOC: EN 08:46 → AC 08:48
PROVIDERS: PCP Family Medicine; Referring Provider Family Medicine; Visit Provider Surgery
PROC: 0DJD8ZZ Inspection of Lower Intestinal Tract, Via Natural or Artificial Opening Endoscopic (ICD-10-PCS; CPT 45378; principal; 2024-04-30 09:55)
DX: K63.5 Polyp of colon (principal); I10 Essential (primary) hypertension; R19.5 Other fecal abnormalities; K21.9 Gastro-esophageal reflux disease without esophagitis; Z79.899 Other long term (current) drug therapy
CPT/HCPCS: 45385; 88305; J7120; J2405